=== PATIENT | female | born 1960 | race Caucasian/White ===

== ENCOUNTER 2020-04-25 08:52 | Outpatient (CLI) | payer BC, SELFPAY ==
[2020-04-25 09:07] LABS: Basophils Absolute Auto 0.07 K/mm3 (0.00-0.10); Basophils Percent Auto 0.6 % (0.0-1.0); Eosinophils Absolute Auto 0.47 K/mm3 (0.02-0.50); Eosinophils Percent Auto 4.1 % (1.0-6.0); Hematocrit 39.9 % (35.0-49.0); Hemoglobin 13.2 g/dL (12.0-15.0); Immature Granulocyte Absolute 0.03 K/mm3 (0.00-0.00); Immature Granulocyte Percent A 0.3 % (0.0-0.0); Lymphocytes Absolute Auto 4.11 K/mm3 (1.10-4.50); Lymphocytes Percent Auto 35.9 % (18.0-42.0); Mean Corpuscular HGB Conc 33.1 g/dL (32.0-36.0); Mean Corpuscular Hemoglobin 32.2 pg (27.0-31.0); Mean Corpuscular Volume 97.3 fL (78.0-102.0); Mean Platelet Volume 9.3 fl (9.2-11.8); Monocytes Absolute Auto 0.77 K/mm3 (0.10-0.90); Monocytes Percent Auto 6.7 % (2.0-11.0); Neutrophils Percent Auto 52.4 % (50.0-70.0); Platelet Count Result 252 K/mm3 (150-420); Red Cell Distribution Width 12.8 % (11.6-14.4); White Blood Count 11.4 K/mm3 (4.8-10.8)
[2020-04-25 10:28] LABS: Alanine Aminotransferase 21 U/L (14-59); Albumin Level 3.8 g/dL (3.4-5.0); Alkaline Phosphatase 78 U/L (46-116); Anion Gap 12.6 mmol/L (7-16); Aspartate Amino Transferase 18 U/L (15-37); Bilirubin,Total 0.4 mg/dL (0.00-1.00); Blood Urea Nitrogen 22 mg/dL (7-18); Calcium 10.2 mg/dL (8.5-10.1); Carbon Dioxide 26 mmol/L (21-32); Chloride 109 mmol/L (98-108); Estimated Glomerular Filt Rate 48; Glucose 96 mg/dL (70-99); Osmolality Calculated 299 mOsm/kg (285-295); Potassium 4.6 mmol/L (3.5-5.1); Sodium 143 mmol/L (136-145); Thyroid Stimulating Hormone 4.02 uIU/mL (0.36-3.74); Total Protein 6.9 g/dL (6.4-8.2); Vitamin B12 656 pg/mL (193-986)
[2020-04-29 20:08] LABS: Vitamin D 25 Hydroxy 33 ng/mL (30-100)
== END 2020-04-25 08:53 | disposition home or self-care (01) ==
PROVIDERS: PCP Nurse Practitioner Family; Visit Provider Nurse Practitioner Family
DX: R53.83 Other fatigue (principal); G62.9 Polyneuropathy, unspecified
CPT/HCPCS: 36415; 80053; 82306; 82607; 84443; 85025

== ENCOUNTER 2020-05-02 11:48 | Outpatient (CLI) | payer BC, SELFPAY ==
[2020-05-06 13:02] LABS: Parathyroid Intact 55 pg/mL (14-64)
== END 2020-05-02 11:49 | disposition home or self-care (01) ==
LOC: CHSLAB 11:50
PROVIDERS: PCP Nurse Practitioner Family; Visit Provider Nurse Practitioner Family
DX: E83.52 Hypercalcemia (principal)
CPT/HCPCS: 36415; 83970

== ENCOUNTER 2020-06-11 17:34 | Outpatient (CLI) | payer BC, SELFPAY ==
[2020-06-11 19:21] LABS: Thyroid Stimulating Hormone 2.86 uIU/mL (0.36-3.74)
== END 2020-06-11 17:35 | disposition home or self-care (01) ==
LOC: CHSLAB 17:35
PROVIDERS: PCP Nurse Practitioner Family; Visit Provider Nurse Practitioner Family
DX: M79.89 Other specified soft tissue disorders (principal)
CPT/HCPCS: 36415; 84443

== ENCOUNTER 2021-05-29 13:53 | Outpatient (CLI) | payer OTHER, SELFPAY ==
[2021-05-29 14:46] LABS: Thyroid Stimulating Hormone 1.53 uIU/mL (0.36-3.74)
== END 2021-05-29 13:54 | disposition home or self-care (01) ==
LOC: CHSLAB 13:58
PROVIDERS: PCP Nurse Practitioner Family; Visit Provider Nurse Practitioner Family
DX: R79.89 Other specified abnormal findings of blood chemistry (principal); R94.6 Abnormal results of thyroid function studies
CPT/HCPCS: 36415; 84443

== ENCOUNTER 2021-09-28 15:31 | Outpatient (CLI) | payer OTHER, SELFPAY ==
--- NOTE | ~2021-09-28 | CT_ITS ---
EXAMINATION: CT abdomen pelvis wo con DATE: 09/28/2021 15:48 INDICATION: Left flank pain. Hematuria. TECHNIQUE: Computed tomography (CT) of the abdomen and pelvis was performed without intravenous contr ast. Automated exposure control and iterative reconstruction technique were employed. The dose-length product was 187.80 mGy-cm. COMPARISON: None. FINDINGS: The visualized portions of the lung bases demonstrate minimal atelectasis. No pleural effus ion. The heart size is normal. There are coronary artery calcifications. No pericardial effusion. The re is a small sliding hiatal hernia. The liver and spleen are normal. There are changes of cholecyste ctomy. The pancreas, adrenal glands, and right kidney are normal. There is a 5 mm stone in left kidne y. There is diverticulosis of the colon without evidence of diverticulitis. There are no dilated loop s of bowel. The appendix is normal. There are no pathologically enlarged lymph nodes. There is no ana e intraperitoneal fluid. There is a chronic burst fracture of L1. There is mild lumbar spondylosis. IMPRESSION: 1. 5 mm nonobstructing left kidney stone. 2. Small sliding hiatal hernia. Reviewed, dictated and finalized at location A. RETE CRUSHER LOADER OPERATOR
== END 2021-09-28 15:32 | disposition home or self-care (01) ==
LOC: CHSIMG 15:34
PROVIDERS: PCP Nurse Practitioner Family; Visit Provider Nurse Practitioner Family
DX: R31.9 Hematuria, unspecified (principal)
CPT/HCPCS: 74176

== ENCOUNTER 2021-10-13 10:10 | Observation (INO) | payer OTHER, SELFPAY ==
--- NOTE | ~2021-10-13 | US_ITS ---
EXAMINATION: US renal BI DATE: 10/13/2021 12:25 INDICATION: Abdominal pain and hematuria. TECHNIQUE: Multiple ultrasound grayscale images of the kidneys were obtained. COMPARISON: CT dated 09/28/2021 FINDINGS: The right kidney measures 9.4 x 3.9 x 4.7 cm. The left kidney measures 9.2 x 4.7 x 5.0 cm. The kidney s demonstrate normal echogenicity. 2.2 cm anechoic cyst at the medial left kidney. There is no hydron ephrosis in either kidney. 6 mm echogenic and shadowing stone at the lower pole of the left kidney. The bladder is normal. IMPRESSION: 1. 6 mm nonobstructing stone at the lower pole of the left kidney. No hydronephrosis. Reviewed, dictated and finalized at location A. DCAST SYSTEMS ENGINEER IMPRESSION: 1. 6 mm nonobstructing stone at the lower pole of the left kidney. No hydronep hrosis.
--- NOTE | ~2021-10-13 | CT_ITS ---
EXAMINATION: CT abdomen pelvis w con DATE: 10/13/2021 15:24 INDICATION: Left flank pain. Suprapubic pain. TECHNIQUE: Computed tomography (CT) of the abdomen and pelvis was performed with 100 mL Omnipaque 350 intravenous contrast. Automated exposure control and iterative reconstruction technique were employe d. The dose-length product was 509.61 mGy-cm. COMPARISON: CT abdomen and pelvis 09/28/2021 FINDINGS: The visualized portions of the lung bases demonstrate mild atelectasis. No pleural effusion . The heart size is normal. No pericardial effusion. There is a moderate-sized sliding hiatal hernia. The liver is normal. There are changes of cholecystectomy. The pancreas, spleen, adrenal glands, and right kidney are normal. There is a 6 mm cyst in left kidney. There is a 5 mm stone in left kidney. There is liquid stool in the colon suggestive of diarrhea. There is diverticulosis of the colon witho ut evidence of diverticulitis. The appendix is normal. There are no pathologically enlarged lymph nod es. There is no free intraperitoneal fluid. Pelvic floor relaxation is noted. There is a chronic comp ression fracture of L1. IMPRESSION: 1. Moderate-sized sliding hiatal hernia. 2. 5 mm nonobstructing left kidney stone. 3. Pelvic floor relaxation. Reviewed, dictated and finalized at location A. OPERATIONS SUPERVISOR
--- NOTE | ~2021-10-13 | CT_ITS ---
EXAMINATION: CT thoracic lumbar wo con DATE: 10/14/2021 08:30 INDICATION: Spine injury. TECHNIQUE: Computed tomography (CT) of the thoracic and lumbar spine was performed without intravenou s contrast. Automated exposure control and iterative reconstruction technique were employed. The dose -length product was 613.35 mGy-cm. COMPARISON: CT abdomen and pelvis 10/13/2021, 09/28/2021, lumbar spine MRI 11/28/2013 FINDINGS: CT THORACIC SPINE: There is a moderate-sized sliding hiatal hernia. There is 10 degrees levoscoliosis of upper thoracic spine. There is a chronic compression fracture of T4 with 3/5 loss of height centr ally. There are chronic compression fractures of T5 and T6 with 1/5 loss of height. There is severely decreased disc height at T4-T5 and moderately decreased disc height from T5-T6 through T7-T8. There is mildly decreased disc height at multiple levels. There is multilevel facet joint osteoarthritis, m ild at most levels. On the right, there is severe facet joint osteoarthritis at T3-T4 and T4-T5. On t he right, there is mild neural foraminal stenosis from T2-T3 through T4-T5. On the left, there is mil d neural foraminal stenosis at T2-T3, T5-T6, and T9-T10. There is mild central canal stenosis at T12- L1. CT LUMBAR SPINE: There is 4 degrees levocurvature of lumbar spine. There is a chronic burst fracture of L1 with 3/5 loss of height centrally and retropulsion of bone 2 mm into central spinal canal. Ther e is mildly decreased disc height at L1-L2. The following disc levels are specifically discussed: L1-L2: There is a central protrusion. There is mild bilateral facet joint osteoarthritis. There is no neural foraminal stenosis. There is mild central canal stenosis. L2-L3: The disc does not extend beyond the endplate margin. There is mild bilateral facet joint osteo arthritis. There is no neural foraminal stenosis. There is no central canal stenosis. L3-L4: The disc is mildly bulging. There is moderate bilateral facet joint osteoarthritis. There is m ild bilateral neural foraminal stenosis. There is no central canal stenosis. L4-L5: The disc is mildly bulging. There is severe right and mild left facet joint osteoarthritis. Th ere is mild bilateral neural foraminal stenosis. There is no central canal stenosis. L5-S1: The disc does not extend beyond the endplate margin. There is severe right and moderate left f acet joint osteoarthritis. There is no neural foraminal stenosis. There is no central canal stenosis. IMPRESSION: 1. No acute fracture. 2. Mild thoracic and lumbar spondylosis. Reviewed, dictated and finalized at location A. DEVELOPMENT MANAGER
[2021-10-13 10:15] VITALS: BP 113/58; PULSE 56; RESP 14; TEMP 37.1; O2SAT 100
--- NOTE | 2021-10-13 11:08 | ED.ABDPAIN ---
HPI - Abdominal Pain General Chief Complaint: Urogenital-Female Stated Complaint: kidney stones Time Seen by Provider: 10/13/21 11:27 Source: patient Mode of arrival: ambulatory Limitations: no limitations History of Present Illness HPI narrative: 60-year-old woman comes in today complaining of left-sided abdominal pain/flank, suprapubic pain and some pain on the right side of her abdomen. Patient states that her symptoms began over 2 weeks ago. She saw her primary care doctor who did a CT scan for she had gross hematuria. She was told that she had a kidney stone and sent home on tamsulosin. UA was negative for hematuria. Patient had been taking penicillin for a month prior to that visit for a dental abscess. Her pain persists and is getting worse over the last few days. She states that she frequently has nausea and diarrhea but has had no vomiting, chest pain, shortness of breath, hematuria, dysuria, black or bloody stools. MD elicited complaint: abdominal pain and flank pain Pertinent past history: kidney stones (?) Onset (ago): week(s) (2) Pain Consistency: constant Location: L flank and suprapubic Severity: severe Radiation: none Migration to: no migration Exacerbating factors: eating and movement Relieving factors: nothing Context: confirms recent antibiotic use Associated symptoms: nausea, diarrhea and hematuria Related Data Home Medications Medication Instructions Recorded Confirmed diazepam 5 mg tablet 5 mg PO .tid prn PRN tablet 03/21/20 10/13/21 topiramate 200 mg tablet 100 mg PO BID PRN tablet 03/21/20 10/13/21 gabapentin 100 mg capsule 100 mg PO BID cap 09/28/21 10/13/21 propranolol 80 mg capsule,24 80 mg PO DAILY 09/28/21 hr,extended release levothyroxine 25 mcg PO DAILY 10/13/21 10/13/21 Allergies Allergy/AdvReac Type Severity Reaction Status Date / Time latex Allergy Mild RASH Verified 09/28/21 11:53 Review of Systems Review of Systems: All systems reviewed & are unremarkable except as noted in HPI and below Constitutional: Constitutional: Denies chills and Denies fever(s) Eyes: Eyes: Denies change in vision and Denies photophobia ENT: Denies nasal congestion and Denies sore throat Cardiovascular: Cardiovascular: Denies chest pain and Denies radiating jaw, neck or arm pain Respiratory: Respiratory: Reports cough, Denies dyspnea and Denies wheezing Gastrointestinal: Gastrointestinal: Reports abdominal pain, Denies bloating, Denies constipation, Reports diarrhea, Reports nausea and Denies vomiting Genitourinary: Genitourinary: Reports hematuria, Denies nocturia, Denies dysuria and Reports flank pain Musculoskeletal: Musculoskeletal: Reports back pain, Denies arthralgias and Denies joint swelling Integumentary/Breasts: Skin/Breast: Denies pruritus, Denies erythema and Denies rash Neurologic: Denies vertigo, Reports dizziness, Denies syncope, Denies headache(s), Denies focal weakness, Denies numbness and Reports weakness Allergic/Immunologic: Allergic/Immunologic: Denies lip swelling and Denies throat swelling PMFSH Past Medical History Medical History (Updated 10/13/21 @ 16:46 by Jose Castillo MD) Closed L2 vertebral fracture Fracture, patella 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
[2021-10-13 11:18] LABS: Add Urine Microscopic? NO; Appearance Urine Clear (Clear); Bilirubin Urine Negative (Negative); Blood Urine Negative (Negative); Color Urine Light Yellow (Yellow); Glucose Urine UA Negative (Negative); Ketones Urine Negative (Negative); Leukocyte Esterase Ur Negative (Negative); Nitrate Urine Negative (Negative); Protein Urine Negative (Negative); Specific Grav Ur 1.025 (1.010-1.020); Urobilinogen Urine 0.2 mg/dL (0.2-1.0); pH Urine 6.5 (5.0-8.0)
[2021-10-13 12:07] LABS: Basophils Absolute Auto 0.07 K/mm3 (0.00-0.10); Basophils Percent Auto 0.7 % (0.0-1.0); Eosinophils Absolute Auto 0.34 K/mm3 (0.02-0.50); Eosinophils Percent Auto 3.5 % (1.0-6.0); Hematocrit 41.7 % (35.0-49.0); Hemoglobin 13.2 g/dL (12.0-15.0); Immature Granulocyte Absolute 0.02 K/mm3 (0.00-0.00); Immature Granulocyte Percent A 0.2 % (0.0-0.0); Lymphocytes Absolute Auto 4.06 K/mm3 (1.10-4.50); Lymphocytes Percent Auto 42.4 % (18.0-42.0); Mean Corpuscular HGB Conc 31.7 g/dL (32.0-36.0); Mean Corpuscular Hemoglobin 31.9 pg (27.0-31.0); Mean Corpuscular Volume 100.7 fL (78.0-102.0); Mean Platelet Volume 9.8 fl (9.2-11.8); Monocytes Absolute Auto 0.61 K/mm3 (0.10-0.90); Monocytes Percent Auto 6.4 % (2.0-11.0); Neutrophils Absolute Auto 4.5 K/mm3 (1.7-7.2); Neutrophils Percent Auto 46.8 % (50.0-70.0); Platelet Count Result 254 K/mm3 (150-420); Red Blood Count 4.14 M/mm3 (4.20-5.40); Red Cell Distribution Width 12.3 % (11.6-14.4); White Blood Count 9.6 K/mm3 (4.8-10.8)
[2021-10-13 12:27] LABS: Alanine Aminotransferase 21 U/L (14-59); Albumin Level 3.5 g/dL (3.4-5.0); Alkaline Phosphatase 90 U/L (46-116); Anion Gap 11 mmol/L (8-16); Aspartate Amino Transferase < 10 U/L (15-37); Bilirubin,Total 0.3 mg/dL (0.00-1.00); Blood Urea Nitrogen 19 mg/dL (7-18); Calcium 9.9 mg/dL (8.5-10.1); Carbon Dioxide 22 mmol/L (21-32); Chloride 111 mmol/L (98-108); Estimated CRCL calculation 43 ml/min; Estimated Glomerular Filt Rate 51; Glucose 92 mg/dL (70-99); Lactic Acid Reflex 1.4 mmol/L (0.4-2.0); Lipase 63 U/L (73-393); Osmolality Calculated 300 mOsm/kg (285-295); Sodium 144 mmol/L (136-145); Total Protein 6.8 g/dL (6.4-8.2)
[2021-10-13] MEDS: SODIUM CHLORIDE 0.9% IV 1,000 ML 999 ML IV CONT ×2 (13:05→14:06)
[2021-10-13] MEDS: ONDANSETRON INJ 4 MG/2 ML VIAL IV PUSH (13:05)
[2021-10-13] MEDS: HYDROmorphone HCL INJ (*CRX) 2 MG/ML VIAL 0.5 MG IV PUSH (13:05)
--- NOTE | 2021-10-13 13:28 | ECG_ITS ---
Measurements Intervals [place] Rate: 52 P: 80 WV: 179 QRS: -15 QRSD: 124 T: 67 QT: 473 QTc: 444 Interpretive Statements SINUS BRADYCARDIA RSR' IN V1 OR V2, CONSIDER RIGHT VENTRICULAR HYPERTROPHY OR RIGHT VCD DELAYED PRECORDIAL R/S TRANSITION BORDERLINE ECG Electronically Signed On 10-13-2021 13:50:56 TOP SPOTTER by Roberto Carlos Jaime D.O.
[2021-10-13 13:35] VITALS: PULSE 50; RESP 20; O2SAT 89
[2021-10-13 14:04] VITALS: BP 99/59; PULSE 50; RESP 20; TEMP 36.9; O2SAT 96
[2021-10-13 16:23] LABS: SARS-CoV-2 RNA PCR Negative (Negative)
[2021-10-13 16:35] VITALS: PULSE 52; RESP 16; O2SAT 98
[2021-10-13 16:42] VITALS: BP 110/60; PULSE 51; RESP 20; TEMP 36.6; O2SAT 98
[2021-10-13] MEDS: SODIUM CHLORIDE 0.9% IV 1,000 ML 200 ML IV CONT ×2 (18:23→23:18)
[2021-10-13 20:00] VITALS: BP 112/54; PULSE 62; RESP 16; TEMP 36.4; O2SAT 98
[2021-10-13] MEDS: GABAPENTIN 100 MG CAPSULE PO (20:21)
--- NOTE | 2021-10-13 22:40 | ADMGEN ---
This patient, Tamra Armijo, was admitted to 2nd Floor Room 208-1. Patient/family oriented to hospital policies and general routines including ID bracelet, bed and alarms, visiting hours, pain management, procedures, bathroom and other care routines, personal items, smoking policy, room service/diet, and visiting hours. Information on how to activate the Rapid Response Team has been discussed. Patient/Family are encouraged to report perceived risks to care and to ask questions if they do not understand what they are told or what they should do.
[2021-10-14] VITALS: BP 100/60; PULSE 58; RESP 20; TEMP 36.1; O2SAT 98
[2021-10-14 04:00] VITALS: BP 91/50; PULSE 68; RESP 20; TEMP 36.1; O2SAT 95
[2021-10-14] MEDS: SODIUM CHLORIDE 0.9% IV 1,000 ML 200 ML IV CONT (05:00)
[2021-10-14 05:36] LABS: Basophils Absolute Auto 0.05 K/mm3 (0.00-0.10); Basophils Percent Auto 0.5 % (0.0-1.0); Eosinophils Absolute Auto 0.28 K/mm3 (0.02-0.50); Eosinophils Percent Auto 2.8 % (1.0-6.0); Hematocrit 34.4 % (35.0-49.0); Hemoglobin 11.6 g/dL (12.0-15.0); Immature Granulocyte Absolute 0.02 K/mm3 (0.00-0.00); Immature Granulocyte Percent A 0.2 % (0.0-0.0); Lymphocytes Absolute Auto 4.63 K/mm3 (1.10-4.50); Lymphocytes Percent Auto 46.9 % (18.0-42.0); Mean Corpuscular HGB Conc 33.7 g/dL (32.0-36.0); Mean Corpuscular Volume 94.8 fL (78.0-102.0); Monocytes Absolute Auto 0.64 K/mm3 (0.10-0.90); Monocytes Percent Auto 6.5 % (2.0-11.0); Neutrophils Absolute Auto 4.3 K/mm3 (1.7-7.2); Neutrophils Percent Auto 43.1 % (50.0-70.0); Platelet Count Result 218 K/mm3 (150-420); Red Blood Count 3.63 M/mm3 (4.20-5.40); Red Cell Distribution Width 12.2 % (11.6-14.4); White Blood Count 9.9 K/mm3 (4.8-10.8)
[2021-10-14 05:51] LABS: Alanine Aminotransferase 17 U/L (14-59); Albumin Level 2.6 g/dL (3.4-5.0); Alkaline Phosphatase 71 U/L (46-116); Anion Gap 11 mmol/L (8-16); Aspartate Amino Transferase < 10 U/L (15-37); Bilirubin,Total 0.3 mg/dL (0.00-1.00); Blood Urea Nitrogen 11 mg/dL (7-18); Calcium 8.5 mg/dL (8.5-10.1); Carbon Dioxide 18 mmol/L (21-32); Chloride 116 mmol/L (98-108); Estimated CRCL calculation 50 ml/min; Estimated Glomerular Filt Rate > 60; Glucose 88 mg/dL (70-99); Osmolality Calculated 298 mOsm/kg (285-295); Potassium 3.9 mmol/L (3.5-5.1); Sodium 145 mmol/L (136-145); Total Protein 5.3 g/dL (6.4-8.2)
[2021-10-14] MEDS: LEVOTHYROXINE SODIUM 25 MCG TABLET PO (06:07)
[2021-10-14 07:38] LABS: Occult Blood Negative (Negative)
[2021-10-14 08:00] VITALS: BP 107/60; PULSE 52; RESP 14; TEMP 36.3; O2SAT 97
--- NOTE | 2021-10-14 09:18 | PM.SD2 ---
Same Day Admit/Disch: HPI History of Present Illness Chief complaint: ABD PAIN HYPOXIA HYPOTENSION Narrative: Tamra Armijo is a 60 year old female presented to the ED with complaints of abdominal and flank pain. Patient has a past medical history of L2 vertebral fracture, Pollard Rehman syndrome, neuropathy, tick bite, and vocal cord paralysis. Patient notes that she has been having pain for a couple of months as she contributed to a 5 mm stone in her left kidney. Patient's primary care physician is aware of her kidney stone and prescribed Flomax. Patient notes that the pain has debilitated her. Vital signs 97.4, 54, 14, 97%, 110/60, WBCs 9.6, hemoglobin 13.2, hematocrit 41.7, platelets 254, sodium 144, potassium 4.0, BUN 14, creatinine 1.09, lactic acid 1.4, AST less than 10 ALT 21 troponin 6.0 UA unremarkable occult blood negative Covid test negative ova and parasite pending. The patient denies SOB, CP, palpitation, hematuria, dysuria, bloody stools extremity numbness, lightheadedness, dizziness, constipation, diarrhea, chills, or fever. Patient notes that she does have pain to her right upper quadrant in right lower back she notes that the Dilaudid relieves her pain she will discharge home with a limited amount of [place]. And instructed to follow-up with her primary care physician Spoke with patient's primary care physician nurse Marifer ISLAS to update her on patient's visit condition. Also notify her that she may possibly need referral to GI or urology. 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lized by the patient): Female Spiritual care concerns: No Same Day Admit/Disch: Med Pre-admit Medications Home Medications Medication Instructions Recorded Confirmed Type diazepam 5 mg tablet 5 mg PO .tid prn PRN tablet 03/21/20 10/13/21 History topiramate 200 mg tablet 100 mg PO BID PRN tablet 03/21/20 10/13/21 History cholecalciferol (vitamin D3) 50 See Rx Instructions .ROUTE 09/09/21 10/13/21 Rx mcg (2,000 unit) capsule .COMPLEX #90 cap gabapentin 100 mg capsule 100 mg PO BID cap 09/28/21 10/13/21 History propranolol 80 mg capsule,24 80 mg PO DAILY 09/28/21 History hr,extended release tamsulosin 0.4 mg capsule 0.4 mg PO QHS #30 cap 09/28/21 10/13/21 Rx levothyroxine 25 mcg PO DAILY 10/13/21 10/13/21 History hydrocodone-acetaminophen 1 tablet PO Q6H PRN #15 tablet 10/14/21 Rx ondansetron HCl [Zofran] 4 mg PO Q6H PRN #30 tablet 10/14/21 Rx Exam Narrative: GENERAL: This is a well-nourished, well-developed patient, in no apparent distress. HEAD: normocephalic, atraumatic. EYES: PERRL. Sclera clear/white. Vision is grossly intact. EARS: External ears normal, auditory canals clear and without drainage, TMs normal without perforation. Hearing grossly intact. NOSE: External nose normal with no obvious nasal discharge, nares without redness, no rhinorrhea. THROAT: Mucous membranes moist, posterior pharynx clear. NECK: Neck supple, non-tender without lymphadenopathy, masses or thyromegaly. CARDI
[2021-10-14] MEDS: CHOLECALCIFEROL 1,000 UNITS TABLET 2000 UNITS BY MOUTH (09:36)
[2021-10-14] MEDS: GABAPENTIN 100 MG CAPSULE PO (09:36)
[2021-10-14 11:40] VITALS: BP 110/60; PULSE 54; RESP 14; TEMP 36.3; O2SAT 97
[2021-10-14] MEDS: ACETAMINOPHEN 500 MG TABLET 1000 MG PO (14:04)
--- NOTE | 2021-10-14 14:13 | PC.NURSE ---
Pt given discharge instruction. Medications reviewed and follow up appointment with Jossie on 10/21/21 @ 1030 reviewed. Pt verbalized understanding of discharge instructions.
--- NOTE | 2021-10-14 16:01 | PC.NURSE ---
Telemetry removed. assisted patient with dressing. Patient taken to car via wheelchair. Denies pain, SOB, abd discomfort.
--- NOTE | 2021-10-15 11:26 | PC.NURSE ---
Pt states she received and understood her discharge instructions. Pt has no other comments.
== END 2021-10-14 15:50 | disposition home or self-care (01) ==
LOC: CHSED 16:43 → CHS2ND 16:44
PROVIDERS: Admitting Provider Emergency Medicine; Emergency Provider Emergency Medicine; PCP Nurse Practitioner Family; Visit Provider Emergency Medicine
DX: R10.32 Left lower quadrant pain (principal); N20.0 Calculus of kidney; I95.9 Hypotension, unspecified; G61.0 Guillain-Barre syndrome; G62.9 Polyneuropathy, unspecified; S30.0XXA Contusion of lower back and pelvis, initial encounter; Z90.49 Acquired absence of other specified parts of digestive tract; Z20.822 Contact with and (suspected) exposure to COVID-19
CPT/HCPCS: 36415; 72128; 72131; 74177; 76775; 80053; 81003; 82272; 83605; 83690; 84484; 85025; 87040; 87045; 87177; 87209; 87324; 87427; 93005; 96360; 96361; 96374; 96375; 99285; A9270; C9803; G0378; J1170; J2405; J7030; Q9967; U0003; U0005

== ENCOUNTER 2022-07-06 10:52 | Outpatient (CLI) | payer OTHER, SELFPAY ==
[2022-07-06 12:15] LABS: Thyroid Stimulating Hormone Reflex 2.64 u/IU/mL (0.36-3.74)
== END 2022-07-06 10:53 | disposition home or self-care (01) ==
LOC: CHSLAB 10:54
PROVIDERS: PCP Nurse Practitioner Family; Visit Provider Nurse Practitioner Family
DX: R79.89 Other specified abnormal findings of blood chemistry (principal)
CPT/HCPCS: 36415; 84443

== ENCOUNTER 2022-10-08 10:38 | Outpatient (CLI) | payer OTHER, SELFPAY ==
--- NOTE | ~2022-10-08 | XR_ITS ---
EXAMINATION: XR chest 2V 10/08/2022 11:08 INDICATION: Cough and congestion. Shortness of breath. PROCEDURE: 2 view chest COMPARISON: 12/02/2014 FINDINGS: The lungs are clear. The cardiomediastinal silhouette is within normal limits. There are no pleural effusions. There is no pneumothorax suspected. IMPRESSION: 1: NO ACUTE CARDIOPULMONARY DISEASE. Reviewed, dictated and finalized at location A. AL ARTS THERAPY TEACHER
[2022-10-08 11:16] LABS: Basophils Absolute Auto 0.07 K/mm3 (0.00-0.10); Basophils Percent Auto 0.6 % (0.0-1.0); Eosinophils Percent Auto 1.8 % (1.0-6.0); Hematocrit 43.8 % (35.0-49.0); Hemoglobin 14.4 g/dL (12.0-15.0); Immature Granulocyte Absolute 0.05 K/mm3 (0.00-0.00); Immature Granulocyte Percent A 0.4 % (0.0-0.0); Lymphocytes Absolute Auto 4.32 K/mm3 (1.10-4.50); Lymphocytes Percent Auto 37.9 % (18.0-42.0); Mean Corpuscular HGB Conc 32.9 g/dL (32.0-36.0); Mean Corpuscular Volume 94.4 fL (78.0-102.0); Mean Platelet Volume 9.1 fl (9.2-11.8); Monocytes Absolute Auto 0.86 K/mm3 (0.10-0.90); Monocytes Percent Auto 7.5 % (2.0-11.0); Neutrophils Absolute Auto 5.9 K/mm3 (1.7-7.2); Neutrophils Percent Auto 51.8 % (50.0-70.0); Platelet Count Result 426 K/mm3 (150-420); Red Blood Count 4.64 M/mm3 (4.20-5.40); Red Cell Distribution Width 12.4 % (11.6-14.4); White Blood Count 11.4 K/mm3 (4.8-10.8)
[2022-10-08 11:54] LABS: Alanine Aminotransferase 24 U/L (14-59); Albumin Level 3.8 g/dL (3.4-5.0); Alkaline Phosphatase 99 U/L (46-116); Anion Gap 6 mmol/L (8-16); Aspartate Amino Transferase 16 U/L (15-37); Bilirubin,Total 0.5 mg/dL (0.00-1.00); Blood Urea Nitrogen 14 mg/dL (7-18); Calcium 10.3 mg/dL (8.5-10.1); Carbon Dioxide 31 mmol/L (21-32); Chloride 108 mmol/L (98-108); Estimated Glomerular Filt Rate 47; Glucose 107 mg/dL (70-99); Osmolality Calculated 300 mOsm/kg (285-295); Potassium 4.8 mmol/L (3.5-5.1); Sodium 145 mmol/L (136-145); Total Protein 7.1 g/dL (6.4-8.2)
== END 2022-10-08 10:39 | disposition home or self-care (01) ==
LOC: CHSLAB 10:40
PROVIDERS: PCP Family Medicine; Visit Provider Nurse Practitioner Family
DX: R09.89 Other specified symptoms and signs involving the circulatory and respiratory systems (principal); R06.02 Shortness of breath; R05.9 Cough, unspecified; J06.9 Acute upper respiratory infection, unspecified
CPT/HCPCS: 36415; 71046; 80053; 85025

== ENCOUNTER 2023-10-04 11:21 | Emergency (ER) | payer BC, SELFPAY ==
--- NOTE | ~2023-10-04 | CT_ITS ---
EXAMINATION: CT BRAIN W/O DATE: 10/04/2023 12:19 INDICATION: Accidental fall. Left hematoma. TECHNIQUE: Computed tomography (CT) of the head was performed without intravenous contrast. The dose- length product was 681.00 mGy-cm. COMPARISON: No prior studies for comparison. FINDINGS: Normal brain parenchymal volume for age. Normal beyer-white differentiation. No acute intrac ranial hemorrhage, infarction, mass or mass effect. No ventriculomegaly or midline shift. Midline sagittal images demonstrate a normal corpus callosum, c raniovertebral junction and sella turcica. Basilar cisterns are patent. Paranasal sinuses and mastoids are pneumatized. No depressed skull fractures. IMPRESSION: 1. No acute intracranial abnormality. Reviewed, dictated and finalized at location L. FLAVOR ATTENDANT
--- NOTE | ~2023-10-04 | XR_ITS ---
XR tibia fibula RT 2V 10/04/2023 12:20 INDICATION: Right leg pain PROCEDURE: 2 views right tibia/fibula COMPARISON: Knee series dated 06/18/2016 FINDINGS: Fracture, dislocation or subluxation is not identified. The soft tissues appear within norm al limits. No foreign bodies are identified. IMPRESSION: 1: NO ACUTE BONE OR JOINT ABNORMALITY IDENTIFIED. Reviewed, dictated and finalized at location L. NOLOGIST
[2023-10-04 11:30] VITALS: BP 113/77; PULSE 77; RESP 20; TEMP 36.3; O2SAT 100
--- NOTE | 2023-10-04 11:33 | ED.LOWEXIN ---
HPI - Extremity Injury (Lower) General Chief Complaint: Extremity Injury, Lower Stated Complaint: fall; right leg pain Time Seen by Provider: 10/04/23 11:30 Source: patient Mode of arrival: ambulatory History of Present Illness HPI Narrative: 62-year-old female with a history of [place] syndrome, neuropathy, left patellar fracture, L2 vertebral fracture, hypothyroidism was walking down a ramp 2 nights ago when she slipped and fell. No loss of consciousness. The patient presents to the ER with -- right leg pain between knee and the ankle. No bruising noted. The patient is able to bear weight. -- Patient hit her head and sustained a hematoma over the left occipital region. No new neck or back pain. The patient has discoloration of the lower back for the past few months. MD complaint: leg injury and fall Onset (ago): day(s) ( Two days ago) Place: home Severity: mild Relieving factors: nothing Exacerbating factors: nothing Context: fall Other symptoms: none Related Data Home Medications Medication Instructions Recorded Confirmed gabapentin 100 mg capsule 100 mg PO BID 09/28/21 10/04/23 diazepam 5 mg tablet 5 mg PO QID muscle spasm 06/08/23 10/04/23 Allergies Allergy/AdvReac Type Severity Reaction Status Date / Time latex Allergy Mild RASH Verified 10/04/23 11:35 codeine Allergy Unknown Unknown Verified 10/04/23 11:35 Review of Systems Review of Systems: All systems reviewed & are unremarkable except as noted in HPI and below Constitutional: Constitutional: Reports as per HPI and Reports no additional constitutional complaints Eyes: Eyes: Reports as per HPI and Reports no additional eye complaints ENT: Reports system reviewed and no additional complaints, except as documented and Reports as per HPI Cardiovascular: Cardiovascular: Reports as per HPI and Reports no additional cardiovascular complaints Respiratory: Respiratory: Reports as per HPI and Reports no additional respiratory complaints Gastrointestinal: Gastrointestinal: Reports as per HPI and Reports no additional gastrointestinal complaints Genitourinary: Genitourinary: Reports no additional female genitourinary complaints and Reports as per HPI Musculoskeletal: Musculoskeletal: Reports no additional musculoskeletal complaints and Reports as per HPI Comments: chronic neck and back pain. Integumentary/Breasts: Skin/Breast: Reports system reviewed and no additional complaints, except as docu Comments: Extensive brown discoloration of the mid back Neurologic: Reports system reviewed and no additional complaints, except as documented and Reports as per HPI Comments: the patient has balance problems after she [place] Psychiatric: Psychiatric: Reports no additional psychiatric complaints and Reports as per HPI Endocrine: Endocrine: Reports no additional endocrine complaints and Reports as per HPI Hematologic/Lymphatic: Hematologic/Lymphatic: Reports no additional hematologic/lymphatic complaints and Reports as per HPI Allergic/Immunologic: Allergic/Immunologic: Reports no additional allergic/immunologic complaints and Reports as per HPI PMFSH Past Medical History Medical History Closed L2 vertebral fracture Fracture, patella 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
[2023-10-04 13:00] VITALS: BP 115/75; PULSE 79; RESP 18; TEMP 36.4; O2SAT 100
== END 2023-10-04 13:00 | disposition home or self-care (01) ==
PROVIDERS: Emergency Provider Internal Medicine Critical Care Medicine; PCP Family Medicine
DX: M79.604 Pain in right leg (principal); S09.90XA Unspecified injury of head, initial encounter; Z79.899 Other long term (current) drug therapy; W01.0XXA Fall on same level from slipping, tripping and stumbling without subsequent striking against object, initial encounter; Y92.009 Unspecified place in unspecified non-institutional (private) residence as the place of occurrence of the external cause
CPT/HCPCS: 70450; 73590; 99284

== ENCOUNTER 2023-10-12 10:35 | Outpatient (CLI) | payer BC, SELFPAY ==
--- NOTE | ~2023-10-12 | XR_ITS ---
Cervical Spine: AP, lateral, open-mouth views Clinical History: Pain Findings: The normal lordotic curve is maintained. No fracture identified. There is 2 mm retrolisthes is of C4 over C5, with mild degenerative disc narrowing at C4-C5. Remaining disc spaces are preserved . There is mild to moderate facet arthropathy cervical spine.. Pre-vertebral soft tissues are unremar kable. Impression: 2 mm retrolisthesis of C4 over C5. Mild degenerative change, as above. Reviewed, dictated and finalized at location M. CAL TECHNICIAN Impression: 2 mm retrolisthesis of C4 over C5. Mild degenerative change, as above.
--- NOTE | ~2023-10-12 | XR_ITS ---
Thoracic spine: Clinical Indication: Back pain AP and lateral views were performed. Mild compression fracture of L1 noted. No thoracic spine fracture seen. There is normal alignment of the vertebrae. The intervertebral disc spaces appear normal. Paravertebral soft tissues appear johny l. Impression: Mild L1 compression fracture, stable since 11/19/2013. Reviewed, dictated and finalized at location . ISION LAYOUT WORKER Impression: Mild L1 compression fracture, stable since 11/19/2013.
[2023-10-12 11:29] LABS: Basophils Absolute Auto 0.05 K/mm3 (0.00-0.10); Basophils Percent Auto 0.4 % (0.0-1.0); Eosinophils Absolute Auto 0.04 K/mm3 (0.02-0.50); Eosinophils Percent Auto 0.4 % (1.0-6.0); Hematocrit 44.6 % (35.0-49.0); Hemoglobin 14.3 g/dL (12.0-15.0); Immature Granulocyte Absolute 0.04 K/mm3 (0.00-0.00); Immature Granulocyte Percent A 0.4 % (0.0-0.0); Lymphocytes Absolute Auto 2.17 K/mm3 (1.10-4.50); Lymphocytes Percent Auto 19.3 % (18.0-42.0); Mean Corpuscular HGB Conc 32.1 g/dL (32.0-36.0); Mean Corpuscular Hemoglobin 30.4 pg (27.0-31.0); Mean Corpuscular Volume 94.9 fL (78.0-102.0); Monocytes Absolute Auto 1.02 K/mm3 (0.10-0.90); Monocytes Percent Auto 9.1 % (2.0-11.0); Neutrophils Absolute Auto 7.9 K/mm3 (1.7-7.2); Neutrophils Percent Auto 70.4 % (50.0-70.0); Platelet Count Result 268 K/mm3 (150-420); Red Cell Distribution Width 13.1 % (11.6-14.4); White Blood Count 11.2 K/mm3 (4.8-10.8)
[2023-10-12 11:56] LABS: Alanine Aminotransferase 21 U/L (14-59); Albumin Level 3.9 g/dL (3.4-5.0); Alkaline Phosphatase 118 U/L (46-116); Anion Gap 7 mmol/L (8-16); Aspartate Amino Transferase 15 U/L (15-37); Bilirubin,Total 0.7 mg/dL (0.00-1.00); Blood Urea Nitrogen 12 mg/dL (7-18); Calcium 9.7 mg/dL (8.5-10.1); Carbon Dioxide 28 mmol/L (21-32); Chloride 102 mmol/L (98-108); Estimated Glomerular Filt Rate 49; Glucose 120 mg/dL (70-99); Osmolality Calculated 284 mOsm/kg (285-295); Potassium 3.8 mmol/L (3.5-5.1); Sodium 137 mmol/L (136-145); Total Protein 7.1 g/dL (6.4-8.2)
[2023-10-12 12:02] LABS: Thyroid Stimulating Hormone Reflex 0.03 u/IU/mL (0.36-3.74)
[2023-10-12 12:23] LABS: Free T4 Free Thyroxine Reflex 0.82 ng/dL (0.76-1.46)
== END 2023-10-12 10:36 | disposition home or self-care (01) ==
LOC: CHSLAB 10:38
PROVIDERS: PCP Family Medicine; Visit Provider Family Medicine
DX: G89.29 Other chronic pain (principal); M54.9 Dorsalgia, unspecified; R79.89 Other specified abnormal findings of blood chemistry; E11.9 Type 2 diabetes mellitus without complications; G61.0 Guillain-Barre syndrome; M54.2 Cervicalgia; M43.12 Spondylolisthesis, cervical region; M48.56XA Collapsed vertebra, not elsewhere classified, lumbar region, initial encounter for fracture
CPT/HCPCS: 36415; 72040; 72072; 80053; 84439; 84443; 85025

== ENCOUNTER 2023-10-19 13:02 | Outpatient (RCR) | payer BC, SELFPAY ==
--- NOTE | 2023-10-19 13:53 | OPREHPOC ---
Outpatient Therapy Plan of Care This is a Multidisciplinary Plan of Care that may contain components documented by all disciplines (PT, OT, and ST.) PT Problem 1 PT Problem #1 Knowledge Deficit PT Goal 1 Goal 1. independent and compliant with HEP Target Visit 4 PT Problem 2 PT Problem #2 Impaired Strength PT Goal 1 Goal 1. improve bilateral knee strength to 4+/5 or better 2. improve bilateral hip flexion to 4/5 or better 3. improve core strength to 3+/5 or better Target Visit 8 PT Problem 3 PT Problem #3 Impaired Functional Mobil PT Goal 1 Goal 1. tinetti to improve to moderate fall risk or less fall risk. 2. patient to report no falls in the last 2 weeks or more. 3. patient to tolerate work 3 days a week or more to improve quality of life 4. ndi and oswestry to displays 40% or less functional deficits each Target Visit 8
--- NOTE | 2023-10-19 13:53 | PTOPEVAL1 ---
Assessment and note entered by JT File, PT Evaluation Information Assessment Status Evaluation Diagnosis cervicalgia, dorsalgia Onset 10/12/23 Subjective Information patient reports back in 1978 she had GBS. she reports then 2 years ago when she had covid her residual deficits from GBS began to become increased again. she reports she had 2 kidney surgeries last year. she reports the surgeries were to remove stones. she reports she is now very weak, has difficulty walking, and is off balance. she reports since covid she has had dizziness, pain, imbalance, functional deficits. 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 she reports she is unable to bend over and pick anything up. she reports she has a service dog to diamond picker things from the floor for her. she reports she has neck and back pain all the time. she reports her pain radiates up into her head causing headaches. she reports she often feels like she has to hold up her head. she reports she has lots of falls. Reported Pain Level Pain Score 7,8: Self Report Assessment PT Clinical Summary mrs. trimble is a 62 yo woman who presents to skilled swing bed PT for evaluation and treatment of neck and back pain. however, she presents with LE weakness and poor balance as well. she displays signs and symptoms of generalized weakness and unsteady gait. her neck and back pain are more acute on chronic at this time. she would benefit from continued skilled PT to address her balance, gait, safety, and strength deficits to improve her quality of life and functional activity performance. Plan of Care Interventions Gait Training,Neuro Re-education,Patient/Caregiver Educati,Therapeutic Activities,Therapeutic Exercise PT Services Indicated Yes Treatment Frequency and 2x weekly for 8 visits Duration These treatments will address the objective and functional deficits as defined above. The patient will be advanced safely and appropriately in order for the patient to progress towards his/her prior level of function. Additional exercises will be introduced and as well as a comprehensive home exercise program upon discharge, if needed, ?to ensure carryover of functional gains achieved in the clinic. This treatment plan has been reviewed and agreement upon by the patient.
--- NOTE | 2023-11-11 07:05 | PCPTNOTE ---
Patient cancelled session today and did not give reason.
--- NOTE | 2023-12-09 09:28 | OPREHPOC ---
Outpatient Therapy Plan of Care This is a Multidisciplinary Plan of Care that may contain components documented by all disciplines (PT, OT, and ST.) PT Problem 1 PT Problem #1 Knowledge Deficit PT Goal 1 Goal 1. independent and compliant with HEP Target Visit 4 Progress Met PT Problem 2 PT Problem #2 Impaired Strength PT Goal 1 Goal 1. improve bilateral knee strength to 4+/5 or better 2. improve bilateral hip flexion to 4/5 or better 3. improve core strength to 3+/5 or better Target Visit 14 PT Problem 3 PT Problem #3 Impaired Functional Mobil PT Goal 1 Goal 1. tinetti to improve to moderate fall risk or less fall risk. 2. patient to report no falls in the last 2 weeks or more. met 3. patient to tolerate work 3 days a week or more to improve quality of life. progressing 4. ndi and oswestry to displays 40% or less functional deficits each. not met Target Visit 14
--- NOTE | 2023-12-09 09:28 | PTOPREEVAL ---
Assessment and note entered by JT File, PT Evaluation Information Assessment Status Re-evaluation Diagnosis cervicalgia, dorsalgia Onset 10/12/23 Subjective Information patient reports she has been working the last couple of days. she reports this has flared up her neck and back pain. she reports she has been trying to be aware and correct any positions that give her poor posture at work. she reports she has been compliant with her HEP. she reports she has had no falls since beginning therapy. Reported Pain Level Pain Score 5,7: Self Report Assessment PT Clinical Summary mrs. trimble presents to skilled PT for her 8th skilled therapy visit. she is in increased pain today, but reports she has tried to return to work this past week which has increased her pain. she does display improvements in LE strength, cervical rom, and tinetti balance score. she has had no falls. however, she remains a high fall risk per the tinetti. she has made progress towards all goals for skilled PT. she continues to remain a candidate for skilled PT as she is making progress, and functionally is improving. she would benefit from continued exercise/activity progression to achieve her remaining skilled PT goals to return to prior level functional activities and quality of life. Plan of Care Interventions Gait Training,Neuro Re-education,Patient/Caregiver Educati,Therapeutic Activities,Therapeutic Exercise PT Services Indicated Yes Treatment Frequency and continue skilled PT 2x weekly for 6 more visits Duration These treatments will address the objective and functional deficits as defined above. The patient will be advanced safely and appropriately in order for the patient to progress towards his/her prior level of function. Additional exercises will be introduced and as well as a comprehensive home exercise program upon discharge, if needed, ?to ensure carryover of functional gains achieved in the clinic. This treatment plan has been reviewed and agreement upon by the patient.
--- NOTE | 2023-12-19 13:27 | OPREHPOC ---
Outpatient Therapy Plan of Care This is a Multidisciplinary Plan of Care that may contain components documented by all disciplines (PT, OT, and ST.) PT Problem 1 PT Problem #1 Knowledge Deficit PT Goal 1 Goal 1. independent and compliant with HEP Target Visit 4 Progress Met PT Problem 2 PT Problem #2 Impaired Strength PT Goal 1 Goal 1. improve bilateral knee strength to 4+/5 or better 2. improve bilateral hip flexion to 4/5 or better 3. improve core strength to 3+/5 or better Target Visit 18 PT Problem 3 PT Problem #3 Impaired Functional Mobil PT Goal 1 Goal 1. tinetti to improve to moderate fall risk or less fall risk. 2. patient to report no falls in the last 2 weeks or more. met 3. patient to tolerate work 3 days a week or more to improve quality of life. progressing 4. ndi and oswestry to displays 40% or less functional deficits each. not met Target Visit 18
--- NOTE | 2023-12-19 13:28 | PTOPREEVAL ---
Assessment and note entered by Alise Marroquin DPT Evaluation Information Assessment Status Re-evaluation Diagnosis cervicalgia, dorsalgia Onset 10/12/23 Subjective Information patient reports since start of PT her back is 20% better and her neck is 10% better. She reports that balance has improved and she is not falling. she reports improvement with getting up from a chair and her standing time to complete house hold tasks has improved. she reports ambulating prolonged periods continue to be difficult. she reports her neck pain continues to persist at work . she reports increased pain is less frequent. Assessment PT Clinical Summary Mrs. Armijo has been seen for 14 visits of skilled PT with good progression towards goals. Patient demonstrates improved balance, improved NDI and Back Index functional scoring, improved cervical ROM and improved LE strength. She reports no falls, improved ability standing up from a chair and improved ability to complete house hold tasks. She continues to report difficulty with ambulating prolonged distances at home and in the community and neck pain while she is working. She would benefit from continued skilled PT to address remaining impairments and return to OF. Plan of Care Interventions Gait Training,Neuro Re-education,Patient/Caregiver Educati,Therapeutic Activities,Therapeutic Exercise PT Services Indicated Yes Treatment Frequency and continue 1x weekly for 4 visits Duration These treatments will address the objective and functional deficits as defined above. The patient will be advanced safely and appropriately in order for the patient to progress towards his/her prior level of function. Additional exercises will be introduced and as well as a comprehensive home exercise program upon discharge, if needed, ?to ensure carryover of functional gains achieved in the clinic. This treatment plan has been reviewed and agreement upon by the patient.
== END 2024-01-11 09:05 | disposition still patient (30) ==
LOC: CHSPT 13:02
PROVIDERS: PCP Family Medicine; Visit Provider Family Medicine
DX: M54.9 Dorsalgia, unspecified (principal); M54.2 Cervicalgia; G89.29 Other chronic pain
CPT/HCPCS: 97110; 97112; 97140; 97150; 97162

== ENCOUNTER 2024-01-18 09:07 | Outpatient (RCR) | payer BC, SELFPAY ==
--- NOTE | 2024-01-18 10:08 | OPREHPOC ---
Outpatient Therapy Plan of Care This is a Multidisciplinary Plan of Care that may contain components documented by all disciplines (PT, OT, and ST.) PT Problem 1 PT Problem #1 Knowledge Deficit PT Goal 1 Goal 1. independent and compliant with HEP Target Visit 4 Progress Met PT Problem 2 PT Problem #2 Impaired Strength PT Goal 1 Goal 1. improve bilateral knee strength to 4+/5 or better 2. improve bilateral hip flexion to 4/5 or better 3. improve core strength to 3+/5 or better Target Visit 24 Progress Not Met Comment progressing Comment progressing PT Problem 3 PT Problem #3 Impaired Functional Mobil PT Goal 1 Goal 1. tinetti to improve to moderate fall risk or less fall risk. 2. patient to report no falls in the last 2 weeks or more. met 3. patient to tolerate work 3 days a week or more to improve quality of life. progressing 4. ndi and oswestry to displays 40% or less functional deficits each. not met Target Visit 24 Progress Partially Met
--- NOTE | 2024-01-18 10:09 | PTOPREEVAL ---
Assessment and note entered by JT File, PT Evaluation Information Assessment Status Re-evaluation Diagnosis cervicalgia, dorsalgia Onset 10/12/23 Subjective Information patient reports she continues to have pain and issues with the neck. she reports her neck has not changed much since starting therapy. however, she reports her back is a bit better. she reports work positions still increase her neck and back symptoms. she reports she continues to bounce off of sin from time to time, but reports feeling her balance is improved since starting therapy. she has not had any falls, but reports she has had a few bouts she has gotten close and found a counter to hold onto. Reported Pain Level Pain Score 2,7: Self Report Pain Score 7,8: Self Report Assessment PT Clinical Summary mrs. trimble presents to skilled PT with continued pain in the neck and lower back. her pain is worse in the L knee and results inher needing to flex the neck and hold/massage the neck with the L UE at all times. she continues to display weakness in the LE's and high fall risk per the tinetti and 5x sit to stand. she is unsafe during ambulation and often has to reach for objects to stabilize balance. she has made some progress towards functional goals, but still lacks achievement of all functional and strength goals. moving forward, patient would benefit from continued rehab with increased focus on balance, gait, and strength. we will hold off on exercise/ treatment of the neck outside of occasional modalities for pain as needed. suggest patient continue skilled PT for balance/gait/strength deficits, but refer back to MD for continued neck and back pain. Plan of Care Interventions Therapeutic Exercise,Patient/Caregiver Educati, Neuro Re-education,Therapeutic Activities,Gait Training PT Services Indicated Yes Treatment Frequency and continue skilled PT 2x weekly for 6 more visits Duration These treatments will address the objective and functional deficits as defined above. The patient will be advanced safely and appropriately in order for the patient to progress towards his/her prior level of function. Additional exercises will be introduced and as well as a comprehensive home exercise program upon discharge, if needed, ?to ensure carryover of functional gains achieved in the clinic. This treatment plan has been reviewed and agreement upon by the patient.
--- NOTE | 2024-02-10 16:56 | OPREHPOC ---
Outpatient Therapy Plan of Care This is a Multidisciplinary Plan of Care that may contain components documented by all disciplines (PT, OT, and ST.) PT Problem 1 PT Problem #1 Knowledge Deficit PT Goal 1 Goal 1. independent and compliant with HEP Target Visit 4 Progress Met PT Problem 2 PT Problem #2 Impaired Strength PT Goal 1 Goal 1. improve bilateral knee strength to 4+/5 or better, met 2. improve bilateral hip flexion to 4/5 or better 3. improve core strength to 3+/5 or better Target Visit 24 Progress Not Met Comment progressing PT Problem 3 PT Problem #3 Impaired Functional Mobil PT Goal 1 Goal 1. tinetti to improve to moderate fall risk or less fall risk. 2. patient to report no falls in the last 2 weeks or more. met 3. patient to tolerate work 3 days a week or more to improve quality of life. met 4. ndi and oswestry to displays 40% or less functional deficits each. not met Target Visit 24 Progress Partially Met
--- NOTE | 2024-02-10 16:57 | PTOPDC ---
Assessment and note entered by Alise Roberson DPT Evaluation Information Assessment Status Re-evaluation Diagnosis cervicalgia, dorsalgia Onset 10/12/23 Subjective Information patient denies falls. she reports in the last 3 weeks she had one really bad day at work where she felt her balance was very off. She reports her balance has improved but does not feel that she has improved to pre COVID levels. She reports she had a neck MRI earlier this week. She reports that getting dressed has improved and she is able to don jewelry but reports that she has modified her room for support. Reported Pain Level Pain Score 4,2: Self Report Assessment PT Clinical Summary Ms. Armijo was seen for 24 visits of skilled PT for neck and back pain and imbalance. Since last re-evaluation patient has made limited progress towards goals. She continues to present as a moderate fall risks with ataxic movements in standing. She reports continued low back and neck pain that will reach up to 10/10. She has follow up with pain management on 02/23 and will be discharged from PT services at this time. Plan of Care PT Services Indicated No
== END 2024-02-10 17:01 | disposition home or self-care (01) ==
LOC: CHSPT 09:07
PROVIDERS: PCP Family Medicine; Visit Provider Family Medicine
DX: M54.9 Dorsalgia, unspecified (principal); M54.2 Cervicalgia; G89.29 Other chronic pain
CPT/HCPCS: 97110; 97112; 97530

== ENCOUNTER 2024-02-08 12:04 | Outpatient (CLI) | payer BC, SELFPAY ==
--- NOTE | ~2024-02-08 | MR_ITS ---
MRI of the cervical spine Clinical History: Cervicalgia Technique: Axial T2-weighted and gradient images, and sagittal T1-weighted, T2-weighted, and STIR dejon ges were acquired. Findings: There is no fracture or subluxation of cervical spine. Vertebral bodies maintain normal hei ght and line. No suspicious bone marrow signal abnormality seen. At C2-C3, there is no disc bulge or herniation. No spinal canal stenosis, cord compression, or defini te neural foraminal narrowing. There is mild facet arthropathy. At C3-C4, there is minimal disc bulge. There is mild facet arthropathy. There is mild bilateral neura l foraminal narrowing. No central canal stenosis or cord compression. At C4-C5, there is moderate degenerative disc narrowing with minimal disc bulge. No canal stenosis or cord compression. There is probable left neural foraminal narrowing. There is mild facet arthropathy . At C5-C6, there is no disc bulge or herniation. No central canal stenosis or cord compression. There is mild bilateral neural foraminal narrowing with bilateral facet arthropathy. At C6-C7, there is no disc bulge or herniation. No spinal canal stenosis, cord compression, or defini te neural foraminal narrowing. No abnormal signal seen in the spinal cord. Paravertebral soft tissues are unremarkable. Impression: Mild degenerative spondylosis, as above. Reviewed, dictated and finalized at [facility]. Impression: Mild degenerative spondylosis, as above.
== END 2024-02-08 12:05 ==
LOC: MICIMG 12:05
PROVIDERS: PCP Family Medicine; Visit Provider Family Medicine
DX: M47.892 Other spondylosis, cervical region (principal)
CPT/HCPCS: 72141

== ENCOUNTER 2024-08-31 15:34 | Outpatient (CLI) | payer BC, SELFPAY ==
--- NOTE | ~2024-08-31 | XR_ITS ---
XR chest 2V DATE: 08/31/2024 15:56 INDICATION: Tuberculosis screening TECHNIQUE: 2 views COMPARISON: 10/08/2022 2 view chest FINDINGS: Bilateral hyperinflation. No pulmonary infiltrate or consolidation, pleural effusion or pul monary vascular congestion or pneumothorax is detected. Normal heart size. No hilar or mediastinal enlargement. Osteopenia. Mild thoracic dextroscoliosis. There is chronic moderate anterior wedge compression fract ure deformity at L1. Status post cholecystectomy. IMPRESSION: No active cardiopulmonary disease Chronic compression fracture deformity of L1 Reviewed, dictated and finalized at location A.
== END 2024-08-31 15:35 | disposition home or self-care (01) ==
PROVIDERS: PCP Family Medicine; Visit Provider Family Medicine
DX: Z20.1 Contact with and (suspected) exposure to tuberculosis (principal); M53.86 Other specified dorsopathies, lumbar region
CPT/HCPCS: 71046

== ENCOUNTER 2024-10-06 10:19 | Outpatient (CLI) | payer BC, SELFPAY ==
--- NOTE | ~2024-10-06 | MR_ITS ---
EXAMINATION: MR lumbar spine wo con DATE: 10/06/2024 11:16 INDICATION: Chronic low back pain. TECHNIQUE: Magnetic resonance imaging (MRI) of the lumbar spine was performed without intravenous con trast. Sequences included sagittal T2-weighted FSE, sagittal T2-weighted FS FSE, sagittal T1-weighted FSE, and axial T2-weighted FSE. COMPARISON: Lumbar spine MRI 11/28/2013 FINDINGS: There is 5 degrees levocurvature of lumbar spine. There are chronic compression fractures o f T11 and T12. Intervertebral disc heights are normal. The distal spinal cord signal intensity is nor mal. The conus medullaris is at T12-L1. The following disc levels are specifically discussed: L1-L2: The disc is bulging and has an annular fissure. There is mild bilateral facet joint osteoarthr itis. There is no neural foraminal stenosis. There is mild central canal stenosis. L2-L3: The disc is bulging. There is mild bilateral facet joint osteoarthritis. There is mild bilater al neural foraminal stenosis. There is no central canal stenosis. L3-L4: The disc is bulging. There is mild right and moderate left facet joint osteoarthritis. There i s mild bilateral neural foraminal stenosis. There is mild central canal stenosis. L4-L5: The disc is mildly bulging. There is severe right and mild left facet joint osteoarthritis. Th ere is mild bilateral neural foraminal stenosis. There is no central canal stenosis. L5-S1: The disc does not extend beyond the endplate margin. There is mild bilateral facet joint osteo arthritis. There is no neural foraminal stenosis. There is no central canal stenosis. IMPRESSION: 1. Mild lumbar spondylosis, worsened from 11/28/2013. Reviewed, dictated and finalized at location A. 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
== END 2024-10-06 10:20 | disposition home or self-care (01) ==
LOC: CHSIMG 10:22
PROVIDERS: PCP Family Medicine; Visit Provider Nurse Practitioner Family
DX: M54.16 Radiculopathy, lumbar region (principal); M43.06 Spondylolysis, lumbar region
CPT/HCPCS: 72148

== ENCOUNTER 2024-10-11 08:04 | Outpatient (CLI) | payer BC, SELFPAY ==
--- NOTE | ~2024-10-11 | DEXA_ITS ---
Bone Density Report Name: TOM JAIME Age: 63 Sex: Female Ethnicity: White Date of : 1960 Indication: postmenopausal; screening for osteoporosis; height loss; prior fracture; Referring Provider: Carlie Valencia Study: Bone densitometry was performed. Exam Date: October 11, 2024 Accession number: [id number] Bone Density: Region BMD T-score Z-score Classification AP Spine(L1, L2, L3) 0.748 -2.5 -0.8 Osteoporosis Femoral Neck (Left) 0.490 -3.2 -1.8 Osteoporosis Total Hip (Left) 0.681 -2.1 -1.0 Osteopenia Femoral Neck (Right) 0.445 -3.6 -2.2 Osteoporosis Total Hip (Right) 0.640 -2.5 -1.3 Osteoporosis Femoral Neck Mean 0.468 -3.4 -2.0 Osteoporosis Total Hip Mean 0.660 -2.3 -1.2 Osteopenia World Health Organization criteria for BMD impression classify patients as: Normal (T-score at or above -1.0), Osteopenia (T-score between -1.0 and -2.5), or Osteoporosis (T-score at or below -2.5). 10-year Fracture Risk: FRAX not reported because: Some T-score for Spine Total or Hip Total or Femoral Neck at or below -2.5 Prior hip or vertebral fracture Clinical Information Provided by Patient: Have had a previous hip or vertebral fracture Has had a low trauma fracture Patient maximum height was 65 Menopause Age: 45 Drinks caffeinated beverages Onset of menses at age 12 Number of children 2 Impression: The patient has established osteoporosis, based on the Right Femoral Neck T-score and the existence of a prior fracture. The patient has risk factors, including: previous fracture. Discussion: HIGH RISK OF FRACTURE. BONE DENSITY IS UNDESIRABLY LOW AT ONE OR MORE SKELETAL SITES, CONSISTENT WITH POSTMENOPAUSAL OSTEOPOROSIS. This patient's lowest T-score, in a patient who has previously fractured, meets the World Health Organization's (WHO) criteria for severe osteoporosis. In untreated patients, the risk of osteoporotic fracture increases approximately two-fold for each 1.0 SD decrease in T-score. Low bone density is not the only risk factor for fracture; also consider factors such as patient's age, frailty or poor health, risk of falling, risk of injury, previous osteoporotic fracture, family history of osteoporosis, cigarette smoking, low body weight, etc. Not everyone with low bone mineral density has osteoporosis; osteomalacia and other metabolic bone disorders should also be considered. Patients who have osteoporosis should be evaluated for specific diseases and conditions (secondary causes) that may cause or contribute to bone loss. The [place] Association of Clinical Endocrinologists (AACE) and National Osteoporosis Foundation (NOF) recommend pharmacologic intervention for all postmenopausal women with a previous hip or vertebral fracture and a T-score in this range. The patient should follow a healthful lifestyle (good nutrition with adequate calcium and vitamin D, and appropriate weight-bearing exercise). Follow-Up: Consider a repeat BMD and Vertebral Fracture Assessment (VFA) exam in 2 years or sooner if medically necessary, to reassess this patient's status. Reported by: JOSAFAT on 10/11/2024 8:28:00 AM. Reviewed, dictated and finalized at location A.
== END 2024-10-11 08:05 | disposition home or self-care (01) ==
PROVIDERS: PCP Family Medicine; Visit Provider Family Medicine
DX: Z78.0 Asymptomatic menopausal state (principal); M85.88 Other specified disorders of bone density and structure, other site; M81.0 Age-related osteoporosis without current pathological fracture
CPT/HCPCS: 77080

== ENCOUNTER 2024-10-22 16:17 | Outpatient (CLI) | payer BC, SELFPAY ==
--- NOTE | ~2024-10-22 | XR_ITS ---
XR foot RT min 3V Ordering provider: Carlie Valencia NP History: . M79.581 - Pain in right foot injury . Comparison: None. FINDINGS: BONES: No acute fracture or dislocation. Early calcaneal spur. JOINT SPACES: Narrowing of the proximal and distal interphalangeal joints. No tarsal coalition. SOFT TISSUES: Normal. IMPRESSION: No acute osseous abnormality of the right foot. Slight narrowing of the proximal and distal interphalangeal joints. Reviewed, dictated and finalized at location A. SURGICAL PCU
== END 2024-10-22 16:18 | disposition home or self-care (01) ==
LOC: CHSIMG 16:18
PROVIDERS: PCP Family Medicine; Visit Provider Family Medicine
DX: M79.671 Pain in right foot (principal)
CPT/HCPCS: 73630

== ENCOUNTER 2025-01-09 16:59 | Outpatient (CLI) | payer OTHER, SELFPAY ==
[2025-01-09 17:29] LABS: Basophils Absolute Auto 0.05 K/mm3 (0.00-0.10); Basophils Percent Auto 0.4 % (0.0-1.0); Eosinophils Absolute Auto 0.22 K/mm3 (0.02-0.50); Eosinophils Percent Auto 1.9 % (1.0-6.0); Hemoglobin 13.4 g/dL (12.0-15.0); Immature Granulocyte Absolute 0.05 K/mm3 (0.00-0.00); Immature Granulocyte Percent A 0.4 % (0.0-0.0); Lymphocytes Absolute Auto 4.28 K/mm3 (1.10-4.50); Mean Corpuscular HGB Conc 31.2 g/dL (32-36); Mean Corpuscular Hemoglobin 29.7 pg (27.0-31.0); Mean Corpuscular Volume 95.3 fL (78.0-102.0); Mean Platelet Volume 9.3 fl (9.2-11.8); Monocytes Absolute Auto 0.69 K/mm3 (0.10-0.90); Neutrophils Absolute Auto 6.28 K/mm3 (1.70-7.20); Neutrophils Percent Auto 54.3 % (50.0-70.0); Platelet Count Result 284 K/mm3 (150-420); Red Blood Count 4.51 M/mm3 (4.20-5.40); Red Cell Distribution Width 13.4 % (11.6-14.4); White Blood Count 11.6 K/mm3 (4.8-10.8)
[2025-01-09 17:44] LABS: Hemoglobin A1C 5.7 % (<5.7)
[2025-01-09 17:55] LABS: Alanine Aminotransferase 22 U/L (14-59); Alkaline Phosphatase 92 U/L (46-116); Anion Gap 7 mmol/L (4-12); Aspartate Amino Transferase 16 U/L (15-37); Bilirubin,Total 0.5 mg/dL (0.00-1.00); Blood Urea Nitrogen 16 mg/dL (7-18); Calcium 10.6 mg/dL (8.5-10.1); Carbon Dioxide 30 mmol/L (21-32); Chloride 107 mmol/L (98-108); Cholesterol 191 mg/dL (0-200); Estimated Glomerular Filt Rate 44; Glucose 89 mg/dL (70-99); HDL Direct 69 mg/dL (40-60); LDL Cholesterol Calculated 111 mg/dL (<130); Osmolality Calculated 298 mOsm/kg (285-295); Potassium 4.4 mmol/L (3.5-5.1); Sodium 144 mmol/L (136-145); Total Protein 7.1 g/dL (6.4-8.2); Triglycerides 56 mg/dL (0-150)
[2025-01-09 17:57] LABS: Free T4 Free Thyroxine Reflex 0.81 ng/dL (0.76-1.46)
--- OUTSIDE RECORDS SUMMARY | 2025-01-09 17:58 | XMS_ITS | Encounter Summary ---
Author Organization [facility] Address 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
--- OUTSIDE RECORDS SUMMARY | 2025-01-09 17:58 | XMS_ITS | Encounter Summary ---
Author Organization [facility] Address 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
--- OUTSIDE RECORDS SUMMARY | 2025-01-09 17:58 | XMS_ITS | Encounter Summary ---
Author Organization [facility] Address [address] [place] [address] Care Team Providers Care Certified Activities Director Name Role Phone Misael Ferraro MD Primary Care Provider Unavailab le Encounter Details Date Type Department Care Team (Late st Contact Info) Description 08/14/2003 Outpatient [facility] Primary Care [address] [place] [phone] Natalie Matute MD NO ADDRESS ON FILE Social History Tobacco Use Types Packs/Day Years Used Date Smoking Tobacco: Never Assessed Comments Unknown Sex and Gender Information Value Date Recorded Sex Assigned at Not on file Legal Sex Female 2:55 AM SHIFT COMMANDER Gender Identity Not on file Sexual Orientation Not on file documented as of this encounter Plan of Treatment Not on file documented as of this encounter Visit Diagnoses Not on filedocumented in this encounter Care Teams Certified Activities Director Relationship Specialty Start Date End Date Misael Ferraro MD PCP - General Family Practice 09/29/12 documented as of this encounter
--- OUTSIDE RECORDS SUMMARY | 2025-01-09 17:58 | XMS_ITS | Encounter Summary ---
Author Organization [facility] Address 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
--- OUTSIDE RECORDS SUMMARY | 2025-01-09 17:58 | XMS_ITS | Clinical Summary ---
Author Organization [employer] [facility] Address [address] [place] [address] Phone Care Team Providers Care Ventilation Mechanic Name Role Phone Misael Ferraro MD Primary Care Provider Unavailab le Allergies Active Allergy Reactions Criticality Noted Date Comments Codeine Unknown 09/29/2012 Latex Unknown 09/29/2012 Medications No known medications Active Problems No known active problems Family History Medical History Relation Name Comments Heart Disease Brother Diabetes Father Other Father Heart Disease Maternal Grandmother Diabetes Mother Heart Disease Mother Relation Name Status Comments Brother Father Maternal Grandfather Maternal Grandmother Mother Paternal Grandfather Paternal Grandmother Social History Tobacco Use Types Packs/Day Years Used Date Smoking Tobacco: Former Comments Unknown Sex and Gender Information Value Date Recorded Sex Assigned at Not on file Legal Sex Female 2:55 AM DRAFTER CASTINGS Gender Identity Not on file Sexual Orientation Not on file Last Filed Vital Signs Vital Sign Reading Time Taken Comments Blood Pressure 140/82 09/29/2012 1:31 PM DRAFTER CASTINGS Pulse - - Temperature 36.8 C (98.3 F) 09/29/2012 1:31 PM DRAFTER CASTINGS Respiratory Rate - - Oxygen Saturation - - Inhaled Oxygen Concentration - - Weight 81.6 kg (180 lb) 09/29/2012 1:31 PM DRAFTER CASTINGS Height 166.4 cm (5' 5.5 ) 09/29/2012 1:31 PM DRAFTER CASTINGS Body Mass Index 29.5 09/29/2012 1:31 PM DRAFTER CASTINGS Plan of Treatment Health Maintenance Due Date Last Done Comments DTAP/TDAP/TD VACCINES (1 - Tdap) 1979 CERVICAL CANCER SCREENING 1990 BREAST CANCER SCREENING 2000 COLORECTAL SCREENING 2005 Colorectal Cancer Screening 2005 FIT-DNA Q 3 years 2005 FIT/FOBT Q 1 year 2005 Flex Sig/CT Colonography Q 5 years 2005 ZOSTER VACCINE (1 of 2) 2010 INFLUENZA VACCINE (#1) 2024 RSV VACCINE (60+ or ) (1 - 1-dose 75+ series) 2035 PNEUMOCOCCAL VACCINE 0-49 YEARS Aged Out No longer eligible based on patient's age to complete this topic Insurance [facility] [facility] [place] [facility] Address: [address] [address] Care Teams Ventilation Mechanic Relationship Specialty Start Date End Date Misael Ferraro MD PCP - General Family Practice 09/29/12
--- OUTSIDE RECORDS SUMMARY | 2025-01-09 17:58 | XMS_ITS | Encounter Summary ---
Author Organization [facility] Address [address] [place] [address] Care Team Providers Care Hospital Scientist Name Role Phone Misael Ferraro MD Primary Care Provider Unavailab le Encounter Details Date Type Department Care Team (Late st Contact Info) Description 03/23/[address] [facility] Primary Care [address] [place] [address] Thee Aly, DO NO ADDRESS ON FILE Social History Tobacco Use Types Packs/Day Years Used Date Smoking Tobacco: Never Assessed Comments Unknown Sex and Gender Information Value Date Recorded Sex Assigned at Not on file Legal Sex Female 2:55 AM PROBATE PARALEGAL Gender Identity Not on file Sexual Orientation Not on file documented as of this encounter Plan of Treatment Not on file documented as of this encounter Visit Diagnoses Not on filedocumented in this encounter Care Teams Hospital Scientist Relationship Specialty Start Date End Date Misael Ferraro MD PCP - General Family Practice 09/29/12 documented as of this encounter
--- OUTSIDE RECORDS SUMMARY | 2025-01-09 17:58 | XMS_ITS | Encounter Summary ---
Author Organization [facility] Address 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
--- OUTSIDE RECORDS SUMMARY | 2025-01-09 17:58 | XMS_ITS | Encounter Summary ---
Author Organization [facility] Address 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
--- OUTSIDE RECORDS SUMMARY | 2025-01-09 17:58 | XMS_ITS | Encounter Summary ---
Author Organization [facility] Address [address] [place] [address] Care Team Providers Care Loom Operator Apprentice Name Role Phone Misael Ferraro MD Primary Care Provider Unavailab le Encounter Details Date Type Department Care Team (Latest Contact Info) Description 02/24/2007 Outpatient Historical [facility] Welcome Thee DO Bertha NO ADDRESS ON FILE Abdominal Pain, Right Lower Quadrant (Primary Dx) Social History Tobacco Use Types Packs/Day Years Used Date Smoking Tobacco: Never Assessed Comments Unknown Sex and Gender Information Value Date Recorded Sex Assigned at Not on file Legal Sex Female 2:55 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 Gender Identity Not on file Sexual Orientation Not on file documented as of this encounter Plan of Treatment Not on file documented as of this encounter Procedures Procedure Name Priority Date/Time Associated Diagnosis Comments URINALYSIS W/REFLEX MICROSCOPIC Routine 02/24/2007 10:26 AM CDT BASIC METABOLIC PANEL Routine 02/24/2007 10:26 AM CDT documented in this encounter Results * URINALYSIS (02/24/2007 10:26 AM CDT) COLOR UA Yellow INTERFACE SYSTEM CLARITY UA Clear Clear INTERFACE SYSTEM SPECIFIC GRAVITY UA 1.016 1.001 - 1.035 INTERFACE SYSTEM PH UA 8.0 5.0 - 8.0 INTERFACE SYSTEM LEUKOCYTE ESTERASE UA Negative Negative INTERFACE SYSTEM NITRITE UA Negative Negative INTERFACE SYSTEM PROTEIN UA Negative Negative INTERFACE SYSTEM GLUCOSE UA Negative Negative INTERFACE SYSTEM KETONES UA Negative Negative INTERFACE SYSTEM UROBILINOGEN UA <1 <=1 mg/dL INTE RFACE SYSTEM BILIRUBIN UA Negative Negative INTERFA CE SYSTEM BLOOD UA Negative Negative INTERFACE SYSTEM 02/24/2007 10:2 6 AM CDT Thee Aly DO URINE ORDERABLES Edited Performing Organization Address [facility] Co de Phone Number INTERFACE SYSTEM Refer to clinic/hospital department * (ABNORMAL) BASIC METABOLIC PANEL (02/24/2007 10:26 AM CDT) GLUCOSE 100(H) 65 - 99 mg/dL INTERFACE SYSTEM CREATININE 0.66 0.51 - 0.95 mg/dL INTERFACE SYSTEM CALCIUM 10.1 8.4 - 10.2 mg/dL INTERFACE SYSTEM BUN 9 6 - 20 mg/dL INTERFACE SYSTEM SODIUM 140 135 - 145 mmol/L INTERFACE SYSTEM POTASSIUM 4.0 3.5 - 4.9 mmol/L INTERFACE SYSTEM CHLORIDE 108 96 - 108 mmol/L INTERFACE SYSTEM CO2 24 22 - 30 mmol/L INTERFACE SYSTEM GFR, >60 >=60 mL/min/1. 7 sq meter INTERFACE SYSTEM GFR >60 >=60 mL/min/1. 7 sq meter INTERFACE SYSTEM Comment: Estimated GFR rate interpretative information for both Americans and non- Americans is available on the [facility] Intranet at: [email or web address] Select: Lab Policies and Procedures Select: Reference Ranges - GFR 02/24/2007 10:2 6 AM CDT Thee Aly DO CHEMISTRY ORDERABLES Edited Performing Organization Address [facility] Co de Phone Number INTERFACE SYSTEM Refer to clinic/hospital department documented in this encounter Visit Diagnoses Diagnosis Abdominal pain, right lower quadrant- Primary documented in this encounter Care Teams Loom Operator Apprentice Relationship Specialty Start Date End Date Misael Ferraro MD PCP - General Family Practice 09/29/12 documented as of this encounter
--- OUTSIDE RECORDS SUMMARY | 2025-01-09 17:58 | XMS_ITS | Encounter Summary ---
Author Organization [facility] Address [address] [place] [address] Care Team Providers Care Toddler Guide Name Role Phone Misael Ferraro MD Primary Care Provider Unavailab le Encounter Details Date Type Department Care Team (Late st Contact Info) Description 09/11/2004 Outpatient Historical [facility] ELECTRIC CELL TENDER - [address] [address] Booker Morrell MD [address] [place] [phone] Social History Tobacco Use Types Packs/Day Years Used Date Smoking Tobacco: Never Assessed Comments Unknown Sex and Gender Information Value Date Recorded Sex Assigned at Not on file Legal Sex Female 2:55 AM PRODUCTION 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
--- OUTSIDE RECORDS SUMMARY | 2025-01-09 17:58 | XMS_ITS | Encounter Summary ---
Author Organization [facility] Address [address] [place] [address] Care Team Providers Care Certified Surgical Tech/First Assistant Name Role Phone Misael Ferraro MD Primary Care Provider Unavailab le Encounter Details Date Type Department Care Team (Late st Contact Info) Description 03/02/2004 Outpatient [facility] Primary Care - [address] [place] [address] Thee Aly, DO NO ADDRESS ON FILE Social History Tobacco Use Types Packs/Day Years Used Date Smoking Tobacco: Never Assessed Comments Unknown Sex and Gender Information Value Date Recorded Sex Assigned at Not on file Legal Sex Female 2:55 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
--- OUTSIDE RECORDS SUMMARY | 2025-01-09 17:58 | XMS_ITS | Encounter Summary ---
Author Organization [facility] Address [address] [place] [address] Care Team Providers Care Semiconductor Packages Tester Name Role Phone Misael Ferraro MD Primary Care Provider Unavailab le Encounter Details Date Type Department Care Team (Late st Contact Info) Description 07/29/[address] [facility] Primary Care [address] [place] [address] Natalie Matute MD NO ADDRESS ON FILE Social History Tobacco Use Types Packs/Day Years Used Date Smoking Tobacco: Never Assessed Comments Unknown Sex and Gender Information Value Date Recorded Sex Assigned at Not on file Legal Sex Female 2:55 AM APPLE PICKER Gender Identity Not on file Sexual Orientation Not on file documented as of this encounter Plan of Treatment Not on file documented as of this encounter Visit Diagnoses Not on filedocumented in this encounter Care Teams Semiconductor Packages Tester Relationship Specialty Start Date End Date Misael Ferraro MD PCP - General Family Practice 09/29/12 documented as of this encounter
--- OUTSIDE RECORDS SUMMARY | 2025-01-09 17:58 | XMS_ITS | Encounter Summary ---
Author Organization [facility] Address [address] [place] [address] Care Team Providers Care Wireless Team Member Name Role Phone Misael Ferraro MD Primary Care Provider Unavailab le Encounter Details Date Type Department Care Team (Late st Contact Info) Description 09/04/2004 Outpatient Historical 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
--- OUTSIDE RECORDS SUMMARY | 2025-01-09 17:58 | XMS_ITS | Encounter Summary ---
Author Organization [facility] Address [address] [place] [address] Care Team Providers Care Marketing Officer Name Role Phone Misael Ferraro MD Primary Care Provider Unavailab le Encounter Details Date Type Department Care Team (Late st Contact Info) Description 10/21/2004 Outpatient Historical [facility] HORSE TREKKING GUIDE - [address] [address] Booker Morrell MD [address] [place] [phone] Social History Tobacco Use Types Packs/Day Years Used Date Smoking Tobacco: Never Assessed Comments Unknown Sex and Gender Information Value Date Recorded Sex Assigned at Not on file Legal Sex Female 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
--- OUTSIDE RECORDS SUMMARY | 2025-01-09 17:58 | XMS_ITS | Encounter Summary ---
Author Organization [facility] Address 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
--- OUTSIDE RECORDS SUMMARY | 2025-01-09 17:58 | XMS_ITS | Encounter Summary ---
Author Organization [facility] Address [address] [place] [address] Care Team Providers Care Life Skills Coordinator Name Role Phone Misael Ferraro MD Primary Care Provider Unavailab le Encounter Details Date Type Department Care Team (Late st Contact Info) Description 06/15/2006 Outpatient [facility] Primary Care [address] [place] [phone] Natalie Matute MD NO ADDRESS ON FILE Social History Tobacco Use Types Packs/Day Years Used Date Smoking Tobacco: Never Assessed Comments Unknown Sex and Gender Information Value Date Recorded Sex Assigned at Not on file Legal Sex Female 2:55 AM DATABASE PROGRAMMER ANALYST Gender Identity Not on file Sexual Orientation Not on file documented as of this encounter Plan of Treatment Not on file documented as of this encounter Visit Diagnoses Not on filedocumented in this encounter Care Teams Life Skills Coordinator Relationship Specialty Start Date End Date Misael Ferraro MD PCP - General Family Practice 09/29/12 documented as of this encounter
--- OUTSIDE RECORDS SUMMARY | 2025-01-09 17:58 | XMS_ITS | Encounter Summary ---
Author Organization [facility] Address [address] [place] [address] Care Team Providers Care Marine Driller Name Role Phone Misael Ferraro MD Primary Care Provider Unavailab le Encounter Details Date Type Department Care Team (Late st Contact Info) Description 11/13/2004 Outpatient Historical [facility] LEAD PORTFOLIO MANAGER - [address] [address] Booker Morrell MD [address] [place] [phone] Social History Tobacco Use Types Packs/Day Years Used Date Smoking Tobacco: Never Assessed Comments Unknown Sex and Gender Information Value Date Recorded Sex Assigned at Not on file Legal Sex Female 2:55 AM PREFABRICATED HOUSES TRIMMER Gender Identity Not on file Sexual Orientation Not on file documented as of this encounter Plan of Treatment Not on file documented as of this encounter Visit Diagnoses Not on filedocumented in this encounter Care Teams Marine Driller Relationship Specialty Start Date End Date Misael Ferraro MD PCP - General Family Practice 09/29/12 documented as of this encounter
--- OUTSIDE RECORDS SUMMARY | 2025-01-09 17:58 | XMS_ITS | Encounter Summary ---
Author Organization [employer] Address [address] [place] [address] Care Team Providers Care Tetryl Boiling Tub Operator Name Role Phone Misael Ferraro MD Primary Care Provider Unavailab le Encounter Details Date Type Department Care Team (Latest Contact Info) Description 02/22/2003 [facility] SCREENING MAMM-MAILG NEOPL-OTHER (Primary Dx) Social History Tobacco Use Types Packs/Day Years Used Date Smoking Tobacco: Never Assessed Comments Unknown Sex and Gender Information Value Date Recorded Sex Assigned at Not on file Legal Sex Female 2:55 AM LINE CONTROLLER Gender Identity Not on file Sexual Orientation Not on file documented as of this encounter Plan of Treatment Not on file documented as of this encounter Visit Diagnoses Diagnosis Other screening mammogram- Primary documented in this encounter Care Teams Tetryl Boiling Tub Operator Relationship Specialty Start Date End Date Misael Ferraro MD PCP - General Family Practice 09/29/12 documented as of this encounter
--- OUTSIDE RECORDS SUMMARY | 2025-01-09 17:58 | XMS_ITS | Encounter Summary ---
Author Organization [facility] Address 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
--- OUTSIDE RECORDS SUMMARY | 2025-01-09 17:59 | XMS_ITS | Encounter Summary ---
Author Organization [facility] Address [address] [place] [address] Care Team Providers Care Yarn Skeins Examiner Name Role Phone Misael Ferraro MD Primary Care Provider Unavailab le Encounter Details Date Type Department Care Team (Late st Contact Info) Description 11/28/2001 Outpatient [facility] Primary Care [address] [place] [address] Thee Aly, DO NO ADDRESS ON FILE Social History Tobacco Use Types Packs/Day Years Used Date Smoking Tobacco: Never Assessed Comments Unknown Sex and Gender Information Value Date Recorded Sex Assigned at Not on file Legal Sex Female 2:55 AM UNION CARPENTER Gender Identity Not on file Sexual Orientation Not on file documented as of this encounter Plan of Treatment Not on file documented as of this encounter Visit Diagnoses Not on filedocumented in this encounter Care Teams Yarn Skeins Examiner Relationship Specialty Start Date End Date Misael Ferraro MD PCP - General Family Practice 09/29/12 documented as of this encounter
--- OUTSIDE RECORDS SUMMARY | 2025-01-09 17:59 | XMS_ITS | Referral Summary ---
Author Organization [facility] al Address [address] [place] [address] Care Team Providers Care General Administrator Name Role Phone Marifer Gupta NP Primary Care Provide r Becki FENTON MD, Aroldo Cruz Unavailable [phone] Allergies Active Allergy Reactions Criticality Noted Date Comments Codeine Stomach upset Low 04/28/2016 Latex Rash Medium 04/28/2016 Medications cholecalciferol (VITAMIN D-3) 10,000 unit tablet Take 1 tablet (10,000 Units total) by mouth daily Active gabapentin (NEURONTIN) 100 mg capsule Take 1 capsule (100 mg total) by mouth 2 (two) times a day Active propranolol LA (INDERAL LA) 80 mg 24 hr capsule Take 1 capsule (80 mg total) by mouth daily 2 Active levothyroxine (SYNTHROID) 25 mcg tablet Take 1 tablet (25 mcg total) by mouth daily 1 Active diazePAM (VALIUM) 10 mg tablet Take 1 tablet (10 mg total) by mouth 4 (four) times a day as needed 2 Active HYDROcodone-melida taminophen (NORCO) 10-325 mg per tablet Take 1 tablet by mouth every 6 (six) hours as needed 2 Active ketorolac (TORADOL) 10 mg tablet Take 1 tablet (10 mg total) by mouth every 8 (eight) hours as needed for pain 25 tablet 2 Active oxybutynin (DITROPAN) 5 mg tablet Take 1 tablet (5 mg total) by mouth 3 (three) times a day as needed (for bladder spasm) for up to 8 days 25 tablet 2 Active [place] Thyroid 30 mg tablet TAKE 1 TABLET BY MOUTH ONCE DAILY ONE HOUR BEFORE BREAKFAST 3 Active Active Problems Problem Noted Date Diagnosed Date Neck pain 03/07/2023 Assessment & Plan (03/07/2023 10:21 AM CDT): Ms. Tamra Armijo is a 62 y.o. female, who presents for evaluation of neck pain. She developed neck pain in the . 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 The pain improves with putting pressure in the base of the skull and worsens with head movements. There is no associated pulling sensation. 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 At the time, there was not a specific treatment for it. She also deals with frequent back pain. She has tried different treatment modalities for her pain, including gabapentin and diazepam, and therapy. There is no family history of dystonia. On examination, there is a mild anterior shift with mild postural and kinetic tremor in the hands without any dystonic posture in the limbs. History and examination are compatible with neck pain. 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 The mild change in the neck posture could be a result of musculoskeletal changes or a mild form of dystonia. We will order a cervical spine MRI to assess radiculopathy. The degree of pain seems significant compared to the mild anterior shift. It is unclear whether treating the anterior shift with botulinum toxin will improve her pain and we had a long discussion about it. We talked about potentially trying it and see what happens. Potential side effects of the injections were reviewed including but not limited to weakness, dysphagia, local pain, bruising and infection. Alternatives to chemodenervation were discussed. We also talked about the use of lower doses initially to minimize the occurrence of side effects, which can also result in lack of improvement of her after the initial sessions. Finally, it was discussed that benefits and side effects are temporary and she will need to return for additional injections in three months. Plan: 1. She is planning to pay out of pocket for the injection. Sent a request to the staff to estimate the cost of 100 units of Botox. 2. MRI cervical spine without contrast. Potential medication side effects were discussed during the encounter. Left ureteral stone 03/01/2022 Overview (03/01/2022): Added automatically from request for surgery [id number] History of kidney stones 02/10/2022 Bilateral flank pain 02/10/2022 Nephrolithiasis 01/04/2022 Vitamin D deficiency 01/04/2022 Paradoxical vocal fold motion disorder 9 Assessment & Plan (08/28/2019 1:49 PM CDT): I have recommended laryngeal control therapy here at the [facility] in order to control the patient's symptoms. The patient's diagnosis was discussed in detail along with how therapy can improve it. 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 No intervention necessary. Pharyngoesophageal dysphagia 08/28/2019 Assessment & Plan (08/28/2019 1:51 PM CDT): MBSS to better evaluate dysphagia and possible upper esophageal diverticulum previously seen on an EGD. RADHA (obstructive sleep apnea) 06/12/2019 Wheezing 06/12/2019 Axillary mass 04/22/2016 Chronic bronchitis Social History Tobacco Use Types Packs/Day Years Used Date Smoking Tobacco: Never Smokeless Tobacco: Never Alcohol Use Standard Drinks/Week Comments Never 0 (1 standard drink = 0.6 oz pur e alcohol) AUDIT-C Answer Date Recorded Q1: How often do you have a drink containing alc ohol? 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 Gender Identity Not on file Sexual Orientation Not on file Last Filed Vital Signs Vital Sign Reading Time Taken Comments Blood Pressure 114/87 02/09/2023 8:08 AM CDT Pulse 74 02/09/2023 8:08 AM CDT Temperature 37 C (98.6 F) 10/13/2022 1:26 PM UPHOLSTERY BUNDLER Respiratory Rate 18 09/14/2022 4:58 PM UPHOLSTERY BUNDLER Oxygen Saturation 100% 09/14/2022 11:50 PM UPHOLSTERY BUNDLER Inhaled Oxygen Concentration - - Weight 64.9 kg (143 lb) 02/09/2023 8:08 AM CDT Height 165.1 cm (5' 5 ) 02/09/2023 8:08 AM CDT Body Mass Index 23.8 02/09/2023 8:08 AM CDT Plan of Treatment Not on file Medical Devices Explanted Type Area Progressive Care Unit Registered Nurse Device Identifier Shelf Expiration Date Model / Serial / Lot [employer] Universa 6fr 26cm Radiopaque Positioner Monofilament Tether 2 [id number] - [id number] Implanted:Qty: 1 on 03/16/2022 by Manav Iqbal MD at [facility] Explanted:Qty: 1 on 03/31/2022 by Manav Iqbal MD Left: Ureter [employer] 01/20/2025 [id number] / / [id number] [employer] Jagruti Contour 6fr 24cm Large Inner Lumen Low Profile Bladder Jori Taper Latex Free 180-222 - [id number] Implanted:Qty: 1 on 04/05/2022 by Nademe Zhang MD at [facility] Explanted:Qty: 1 on 04/21/2022 by Nadeem Zhang MD Left: Ureter [employer] Jagruti 12/23/2024 180-222 / / [id number] Procedures Procedure Name Priority Date/Time Associated Diagnosis Comments DIAGNOSTIC MAMMOGRAM BILATERAL W GARRISON Routine 04/28/2016 2:42 PM CDT from Last 3 Months or Most Recently Relevant to Health Maintenance Results * DIAGNOSTIC MAMMOGRAM BILATERAL W GARRISON (04/28/2016 2:42 PM CDT) Anatomical Region Laterality Modality Breast Bilateral Mammography 04/28/2016 2:42 PM CDT Narrative 04/28/2016 3:47 PM CDT TAE DOWNING M.D. LEANN PARK M.D. FINAL REPORT The radiology attending physician has personally reviewed this study, and has reviewed and/or edited this written report and agrees with it. ACC# Date Time Exam [id number] Apr 28, 2016 14:42:00 [facility] [id number] Diag Mammogram Bilateral Technologist(s): Akosua Sprinegr; ; [id number] Apr 28, 2016 14:42:00 [facility] [address]3227 Dig Breast Garrison Andrzej Technologist(s): Akosua Springer; ; ACC# Date Time Exam [id number] Apr 28, 2016 14:42:00 [facility] [id number] Diag Mammogram Bilateral Technologist(s): Akosua Springer; ; [id number] Apr 28, 2016 14:42:00 [facility] 17063 Dig Breast Garrison Andrzej Technologist(s): Akosua Springer; ; EXAMINATION: BILATERAL FULL FIELD DIGITAL DIAGNOSTIC MAMMOGRAM WITH CAD AND DIGITAL BREAST TOMOSYNTHESIS HISTORY: 55 year woman with previously seen heterogenous calcifications in the left upper outer breast. Biopsy was recommended at an outside hospital, however the patient refused biopsy. TECHNIQUE: Full field digital craniocaudal and mediolateral oblique views of both breasts were obtained. Computer Aided Detection was performed with Nuenz.3 version 9.3. Digital breast tomosynthesis was performed and reviewed as a part of this examination. Additional spot magnification views of both breasts were also performed. COMPARISON: 05/13/2014, 09/26/2013. BREAST PARENCHYMAL COMPOSITION: There are scattered areas of fibroglandular density.. FINDINGS: There are heterogenous calcifications in the upper outer right breast in a linear distribution. These are unchanged from the previous exam. There are grouped heterogenous calcifications in the left breast at 3 o'clock position posterior depth, unchanged from the previous examination. IMPRESSION: 1) Heterogenous calcifications in a linear distribution in the upper outer right breast are unchanged from the previous exam but remain indeterminate based on their morphology and distribution. 2) Heterogenous calcifications in the left breast at 3 o'clock position, posterior depth are unchanged from the previous exam but remain indeterminate based on their morphology and distribution. The above findings and recommendations were discussed with the patient at the conclusion of the examination and were subsequently communicated to the referring clinician, Dr. Lilia Ramirez in a written report. The patient again refused stereotactic guided core needle biopsy OVERALL FINAL ASSESSMENT: BI-RADS Category 4A: Suspicious abnormality. Low suspicion for malignancy. Requested By: Dictated By: LEANN PARK M.D. on Apr 28 2016 3:14P This document has been electronically signed by: TAE DOWNING M.D. on Apr 28 2016 3:47P [id number] Procedure Note Provider, MD Radha - 02/19/2017 TAE DOWNING M.D. LEANN PARK M.D. FINAL REPORT The radiology attending physician has personally reviewed this study, and has reviewed and/or edited this written report and agrees with it. ACC# Date Time Exam [id number] Apr 28, 2016 14:42:00 [facility] [id number] Diag Mammogram Bilateral Technologist(s): Akosua Springre; ; [id number] Apr 28, 2016 14:42:00 [facility] [address]1983 Dig Breast Garrison Andrzej Technologist(s): Akosua Springer; ; ACC# Date Time Exam [id number] Apr 28, 2016 14:42:00 [facility] [id number] Diag Mammogram Bilateral Technologist(s): Akosua Springer; ; [id number] Apr 28, 2016 14:42:00 [facility] [id number] Dig Breast Garrison Andrzej Technologist(s): Akosua Springer; ; EXAMINATION: BILATERAL FULL FIELD DIGITAL DIAGNOSTIC MAMMOGRAM WITH CAD AND DIGITAL BREAST TOMOSYNTHESIS HISTORY: 55 year woman with previously seen heterogenous calcifications in the left upper outer breast. Biopsy was recommended at an outside hospital, however the patient refused biopsy. TECHNIQUE: Full field digital craniocaudal and mediolateral oblique views of both breasts were obtained. Computer Aided Detection was performed with [employer] 1.3 version 9.3. Digital breast tomosynthesis was performed and reviewed as a part of this examination. Additional spot magnification views of both breasts were also performed. COMPARISON: 05/13/2014, 09/26/2013. BREAST PARENCHYMAL COMPOSITION: There are scattered areas of fibroglandular density.. FINDINGS: There are heterogenous calcifications in the upper outer right breast in a linear distribution. These are unchanged from the previous exam. There are grouped heterogenous calcifications in the left breast at 3 o'clock position posterior depth, unchanged from the previous examination. IMPRESSION: 1) Heterogenous calcifications in a linear distribution in the upper outer right breast are unchanged from the previous exam but remain indeterminate based on their morphology and distribution. 2) Heterogenous calcifications in the left breast at 3 o'clock position, posterior depth are unchanged from the previous exam but remain indeterminate based on their morphology and distribution. The above findings and recommendations were discussed with the patient at the conclusion of the examination and were subsequently communicated to the referring clinician, Dr. Lilia Ramirez in a written report. The patient again refused stereotactic guided core needle biopsy OVERALL FINAL ASSESSMENT: BI-RADS Category 4A: Suspicious abnormality. Low suspicion for malignancy. Requested By: Dictated By: LEANN PARK M.D. on Apr 28 2016 3:14P This document has been electronically signed by: TAE DOWNING M.D. on Apr 28 2016 3:47P [id number] Historical Provider MD SOLITARIO MAMMO PROCEDURES Deana l Result from Last 3 Months or Most Recently Relevant to Health Maintenance Insurance [employer] OPEN ACCESS [facility] HMO/PPO Address: [address] [address] [place] [address] [facility] CHOICE PLUS [facility] HMO/PPO Address: [facility] [address] [place] [address] Care Teams General Administrator Relationship Specialty Start Date End Date Marifer Gupta NP [address] [place] [address] PCP - General Nurse Practitioner 01/04/22 Aroldo Connell III, MD [address] [place] [address] Referring Physician Neurology 11/11/22
--- OUTSIDE RECORDS SUMMARY | 2025-01-09 17:59 | XMS_ITS | Encounter Summary ---
Author Organization [facility] Address 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
--- OUTSIDE RECORDS SUMMARY | 2025-01-09 17:59 | XMS_ITS | Clinical Summary ---
Author Organization [facility] al Address [address] [place] [address] Care Team Providers Care Mill Manager Name Role Phone Marifer Gupta NP Primary Care Provide r Becki FENTON MD, Aroldo Cruz Unavailable [phone] Allergies Active Allergy Reactions Criticality Noted Date [...] to 8 days 25 tablet 2 Active [place] Thyroid 30 mg tablet TAKE 1 TABLET [...] note, in the , she had Guillain [place], which affected her four limbs and swallowing. [...] is neuropathic pain related to prior Guillain [place] injury. The mild change in the neck [...] (03/01/2022): Added automatically from request for surgery [id number] History of kidney stones 02/10/2022 Bilateral flank pain 02/10/2022 Nephrolithiasis 01/04/2022 Vitamin D deficiency 01/04/2022 Paradoxical vocal fold motion disorder 9 Assessment & Plan (08/28/2019 1:49 PM CDT): I have recommended laryngeal control therapy here at the [facility] in order [...] Wheezing 06/12/2019 Axillary mass 04/22/2016 Chronic bronchitis Surgical History Surgery Date Site/Laterality Comments CHOLECYSTECTOMY ELBOW SURGERY x3 TONSILLECTOMY AND ADENOIDECTOMY Medical History Medical History Date Comments PONV (postoperative nausea and vomiting) GERD (gastroesophageal reflux disease) Guillain Rehman syndrome Irritable bowel syndrome Kidney stone Kidney cyst, acquired Hypothyroidism Family History Medical History Relation Name Comments Tremor Daughter No Known Problems Father Diabetes Mother Heart disease Mother Relation Name Status Comments Daughter Alive Father Mother Social History Tobacco Use Types Packs/Day Years [...] on file 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 Gender Identity Not on file Sexual Orientation Not on file Obstetrics History Last Filed Vital Signs Vital Sign Reading Time Taken Comments Blood Pressure 114/87 02/09/2023 8:08 AM CDT Pulse 74 02/09/2023 8:08 AM CDT Temperature 37 C (98.6 F) 10/13/2022 1:26 PM REFINED SYRUP OPERATOR Respiratory Rate 18 09/14/2022 4:58 PM REFINED SYRUP OPERATOR Oxygen Saturation 100% 09/14/2022 11:50 PM REFINED SYRUP OPERATOR Inhaled Oxygen Concentration - - Weight 64.9 kg (143 lb) 02/09/2023 8:08 AM CDT Height 165.1 cm (5' 5 ) 02/09/2023 8:08 AM CDT Body Mass Index 23.8 02/09/2023 8:08 AM CDT Plan of Treatment Health Maintenance Due Date Last Done Comments Cervical Cancer Screening 1960 Colon Cancer Screening-Colonoscopy 1960 Depression Screening 1960 Hepatitis C Screening 1960 DTaP/Tdap/Td Vaccine (1 - Tdap) 1971 Hepatitis B Screening 1978 Regular Well Visit/Exam 18-64 1978 Zoster Vaccine (1 of 2) 2010 Breast Cancer Screening-Mammogram 04/28/2017 016 Influenza Vaccine (#1) 2024 Pneumococcal vaccine <65 Aged Out No longer eligible based on patient's age to complete this topic Medical Devices Explanted Type Area Master Control Technician Device Identifier Shelf Expiration Date Model / Serial / Lot [employer] Universa 6fr 26cm Radiopaque Positioner Monofilament Tether 2 [id number] - [id number] Implanted:Qty: 1 on 03/16/2022 by Manav Iqbal MD at [facility] Explanted:Qty: 1 on 03/31/2022 by Manav Iqbal MD Left: Ureter [employer] 01/20/2025 [id number] / / [id number] [employer] Jagruti Contour 6fr 24cm Large Inner Lumen Low Profile Bladder Jori Taper Latex Free 180-222 - [id number] Implanted:Qty: 1 on 04/05/2022 by Nadeem Zhang MD at [facility] Explanted:Qty: 1 on 04/21/2022 by Nadeem Zhang MD Left: Glenn Jade [employer] Jagruti 12/23/2024 180-222 / / [id number] Procedures Procedure Name Priority Date/Time Associated Diagnosis [...] agrees with it. ACC# Date Time Exam [id number] Apr 28, 2016 14:42:00 [place] [id number] Diag Mammogram Bilateral Technologist(s): Akosua Springer; ; [id number] Apr 28, 2016 14:42:00 [facility] [address] Dig Breast Garrison Andrzej Technologist(s): Akosua Springer; ; ACC# Date Time Exam [id number] Apr 28, 2016 14:42:00 [facility] 66970 Diag Mammogram Bilateral Technologist(s): Akosua Springer; ; [id number] Apr 28, 2016 14:42:00 [place] [id number] Dig Breast Garrison Andrzej Technologist(s): Akosua Springer; [...] obtained. Computer Aided Detection was performed with [employer].3 version 9.3. Digital breast tomosynthesis was performed [...] DOWNING M.D. on Apr 28 2016 3:47P [id number] Procedure Note Provider, MD Radha - 02/19/2017 TAE DOWNING M.D. LEANN PARK M.D. FINAL REPORT The radiology attending physician has personally reviewed this study, and has reviewed and/or edited this written report and agrees with it. ACC# Date Time Exam [id number] Apr 28, 2016 14:42:00 [facility] [address] Diag Mammogram Bilateral Technologist(s): Akosua Springer; ; [id number] Apr 28, 2016 14:42:00 [facility] [address] Dig Breast Garrison Andrzej Technologist(s): Akosua Springer; ; ACC# Date Time Exam [id number] Apr 28, 2016 14:42:00 [facility] 5[address] Diag Mammogram Bilateral Technologist(s): Akosua Springer; ; [id number] Apr 28, 2016 14:42:00 [facility] [address] Dig Breast Garrison Andrzej Technologist(s): Akosua Springer; [...] obtained. Computer Aided Detection was performed with [employer] version 9.3. Digital breast tomosynthesis was performed [...] DOWNING M.D. on Apr 28 2016 3:47P [id number] us Historical Provider MD SOLITARIO MAMMO PROCEDURES Deana l Result from Last 3 Months or Most Recently Relevant to Health Maintenance Insurance [employer] [place] [address] [place] [address] [facility] CHOICE PLUS Care Teams Mill Manager Relationship Specialty Start Date End Date Marifer Gupta NP [address] [place] [address] PCP - General Nurse Practitioner 01/04/22 Aroldo Connell III, MD [address] [place] [address] Referring Physician Neurology 11/11/22
--- OUTSIDE RECORDS SUMMARY | 2025-01-09 17:59 | XMS_ITS | Encounter Summary ---
Author Organization [facility] Address 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
--- OUTSIDE RECORDS SUMMARY | 2025-01-09 17:59 | XMS_ITS | Encounter Summary ---
Author Organization [facility] Address [address] [place] [address] Care Team Providers Care Treasury Consultant Name Role Phone Misael Ferraro MD Primary Care Provider Unavailab le Encounter Details Date Type Department Care Team (Late st Contact Info) Description 02/22/2003 Outpatient [facility] Primary Care [address] [place] [address] Thee Aly, DO NO ADDRESS ON FILE Social History Tobacco Use Types Packs/Day Years Used Date Smoking Tobacco: Never Assessed Comments Unknown Sex and Gender Information Value Date Recorded Sex Assigned at Not on file Legal Sex Female 2:55 AM CONE MARKER Gender Identity Not on file Sexual Orientation Not on file documented as of this encounter Plan of Treatment Not on file documented as of this encounter Visit Diagnoses Not on filedocumented in this encounter Care Teams Treasury Consultant Relationship Specialty Start Date End Date Misael Ferraro MD PCP - General Family Practice 09/29/12 documented as of this encounter
--- OUTSIDE RECORDS SUMMARY | 2025-01-09 17:59 | XMS_ITS | Encounter Summary ---
Author Organization [facility] Address [address] [place] [address] Care Team Providers Care Line Rider Name Role Phone Misael Ferraro MD Primary Care Provider Unavailab le Encounter Details Date Type Department Care Team (Late st Contact Info) Description 06/13/2001 Outpatient [facility] Primary Care [address] [place] [address] Thee Aly, DO NO ADDRESS ON FILE Social History Tobacco Use Types Packs/Day Years Used Date Smoking Tobacco: Never Assessed Comments Unknown Sex and Gender Information Value Date Recorded Sex Assigned at Not on file Legal Sex Female 2:55 AM WELDER OPERATOR Gender Identity Not on file Sexual Orientation Not on file documented as of this encounter Plan of Treatment Not on file documented as of this encounter Visit Diagnoses Not on filedocumented in this encounter Care Teams Line Rider Relationship Specialty Start Date End Date Misael Ferraro MD PCP - General Family Practice 09/29/12 documented as of this encounter
--- OUTSIDE RECORDS SUMMARY | 2025-01-09 17:59 | XMS_ITS | Encounter Summary ---
Author Organization [facility] Address 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
--- OUTSIDE RECORDS SUMMARY | 2025-01-09 17:59 | XMS_ITS | Encounter Summary ---
Author Organization [facility] Address [address] [place] [address] Phone Care Team Providers Care Svp Chief Marketing Officer Name Role Phone Marifer Gupta NP Primary Care Provide r Becki FENTON MD, Aroldo Cruz Unavailable [phone] Reason for Visit * Reason Onset Date Comments Appointment 07/02/2022 Encounter Details Date Type Department Care Team (Late st Contact Info) Description 07/02/2022 Telephone [facility] ENT [address] [facility] Medical Office Building [address] [address] Andrew Willard MD [address] [facility] [address] [place] [address] Appointment Social History Tobacco Use Types Packs/Day Years [...] on file Legal Sex Female 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
--- OUTSIDE RECORDS SUMMARY | 2025-01-09 17:59 | XMS_ITS | Encounter Summary ---
Author Organization [facility] Address [facility] [place] [address] Care Team Providers Care Sales And Production Manager Name Role Phone Unavailable Primary Care Provider Unavailabl e Encounter Details Date Type Department Care Team (Latest Contact Info) Description 09/05/2018 Abstract [facility] , Generic Conversion, Social History Tobacco Use Types Packs/Day Years Used Date Smoking Tobacco: Never Assessed Comments Unknown Sex and Gender Information Value Date Recorded Sex Assigned at Not on file Legal Sex Female 7:42 PM CDT Gender Identity Not on file Sexual Orientation Not on file documented as of this encounter Plan of Treatment Not on file documented as of this encounter Visit Diagnoses Not on filedocumented in this encounter
--- OUTSIDE RECORDS SUMMARY | 2025-01-09 17:59 | XMS_ITS | Encounter Summary ---
Author Organization [facility] Address 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
--- OUTSIDE RECORDS SUMMARY | 2025-01-09 17:59 | XMS_ITS | Encounter Summary ---
Author Organization [facility] Address 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
--- OUTSIDE RECORDS SUMMARY | 2025-01-09 17:59 | XMS_ITS | Encounter Summary ---
Author Organization [facility] Address 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
--- OUTSIDE RECORDS SUMMARY | 2025-01-09 17:59 | XMS_ITS | Encounter Summary ---
Author Organization [facility] Address [address] [place] [address] Care Team Providers Care Airplane Pilot Supervisor Name Role Phone Misael Ferraro MD Primary Care Provider Unavailab le Encounter Details Date Type Department Care Team (Late st Contact Info) Description 09/30/2000 Outpatient [facility] Primary Care - [address] [place] [phone] Thee Aly, DO NO ADDRESS ON FILE Social History Tobacco Use Types Packs/Day Years Used Date Smoking Tobacco: Never Assessed Comments Unknown Sex and Gender Information Value Date Recorded Sex Assigned at Not on file Legal Sex Female 2:55 AM PHARMACIST ASSISTANT Gender Identity Not on file Sexual Orientation Not on file documented as of this encounter Plan of Treatment Not on file documented as of this encounter Visit Diagnoses Not on filedocumented in this encounter Care Teams Airplane Pilot Supervisor Relationship Specialty Start Date End Date Misael Ferraro MD PCP - General Family Practice 09/29/12 documented as of this encounter
--- OUTSIDE RECORDS SUMMARY | 2025-01-09 17:59 | XMS_ITS | Encounter Summary ---
Author Organization [facility] Address 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
--- OUTSIDE RECORDS SUMMARY | 2025-01-09 17:59 | XMS_ITS | Clinical Summary ---
Author Organization [facility] Address [address] [address] Care Team Providers Care Bacteriologist Food Name Role Phone Víctor Thompson MD Primary Care Provider [phone] Source Comments [facility],non-owned Affiliates and Associated Physician Practices is amultiple site organization consisting of ambulatory clinics and hospital sitesin [place], [place], [place] and [place]. This disclosure is being madepursuant to the Care Everywhere program and may not contain all information available regarding this patient. Last updated 18.[facility] [employer] Allergies Active Allergy Reactions Criticality Noted Date Comments Codeine Unknown 09/29/2012 Latex Unknown 09/29/2012 Medications * Be aware that medications may not be up to date on this document. Alwaysverify current medications with the patient. Medication Sig Dispensed Refills Start Date End Date Status albuterol HFA (PROVENTIL;VENTOLIN;P ROAIR) 108 (90 Base) MCG/ACT inhaler Inhale 2 puffs by mouth every 4 hours as needed 6 04/26/2019 Active benzonatate (TESSALON) 100 MG capsule TAKE 1 CAPSULE BY MOUTH EVERY 8 HOURS NEEDED FOR COUGH FOR 7 DAYS 0 05/26/2019 Active diazePAM (VALIUM) 5 MG tablet TAKE 1 TABLET BY MOUTH THREE TIMES A DAY NEEDED 5 06/27/2019 Active TRELEGY ELLIPTA 100-62.5-25 MCG/INH INHALE 1 PUFF BY MOUTH ONCE A DAY RINSE MOUTH AFTER USE 6 05/16/2019 Active gabapentin (NEURONTIN) 100 MG capsule TAKE 2 CAPSULES BY MOUTH IN THE MORNING, 1 CAPSULE IN THE AFTERNOON AND 2 IN THE EVENING 3 07/24/2019 Active Nebulizers (VIOS AEROSOL DELIVERY SYSTEM) MISC USE 6 TIMES DAILY UTD PRN 0 05/26/2019 Active topiramate (TOPAMAX) 200 MG tablet Take 200 mg by mouth 2 times daily 5 07/20/2019 Active Social History Tobacco Use Types Packs/Day Years Used Date Smoking Tobacco: Former Smokeless Tobacco: Never Alcohol Use Standard Drinks/Week Comments Not Currently 0 (1 standard drink = 0.6 oz pur e alcohol) Sex and Gender Information Value Date Recorded Sex Assigned at Not on file Gender Identity Not on file Sexual Orientation Not on file Last Filed Vital Signs Vital Sign Reading Time Taken Comments Blood Pressure 114/73 08/16/2019 9:32 AM CDT Pulse 64 08/16/2019 9:32 AM CDT Temperature 36.3 C (97.4 F) 08/16/2019 9:32 AM CDT Respiratory Rate 20 08/16/2019 9:32 AM CDT Oxygen Saturation 97% 08/16/2019 9:32 AM CDT Inhaled Oxygen Concentration - - Weight 67.6 kg (149 lb) 08/16/2019 9:32 AM CDT Height 162.6 cm (5' 4 ) 08/16/2019 9:32 AM CDT Body Mass Index 25.58 08/16/2019 9:32 AM CDT Plan of Treatment Health Maintenance Due Date Last Done Comments COLOGUARD (AGES 45-75) - COL ON CA SCREENING 1960 COLON MONITORING 1960 COLONOSCOPY - COLON CA SCREENING 1960 CT COLONOGRAPHY - COLON CA SCREENING 1960 Colorectal Cancer Screening 1960 FIT - COLON CA SCREENING 1960 FLEX SIG - COLON CA SCREENING 1960 LIPID TESTING 1960 MAMMOGRAM 1960 PAP SMEAR 1960 HIV SCREENING 1975 HEPATITIS C SCREENING 12/05/1978 DTAP/TDAP/TD VACCINES (1 - Tdap) 1979 PNEUMOCOCCAL VACCINE 50+ (1 of 1 - PCV) 2010 ZOSTER VACCINE (1 of 2) 2010 SCREENING FOR DIABETES 08/16/2019 COVID-19 VACCINE (1 - 2023-2 5 season) 2024 INFLUENZA VACCINE (#1) 2024 DEPRESSION SCREENING 10/31/2024 Respiratory Syncytial Virus (RSV) Vaccine Pt: or over 60 yrs (1 - 1-dose 75+ series) 2035 HEPATITIS B VACCINE Aged Out No longe r eligible based on patient's age to complete this topic HIB VACCINE Aged Out No longer eligi ble based on patient's age to complete this topic HPV VACCINE Aged Out No longer eligi ble based on patient's age to complete this topic MENINGOCOCCAL (Group B) VACC INE SHARED DECISION-MAKING Aged Out No longer eligibl e based on patient's age to complete this topic MENINGOCOCCAL GROUPS A/C/Y/W VACCINE Aged Out No longer eligible b ased on patient's age to complete this topic PNEUMOCOCCAL VACCINE Aged Out No long er eligible based on patient's age to complete this topic Care Teams Bacteriologist Food Relationship Specialty Start Date End Date Víctor Thompson MD [address] [place] [address] PCP - General 10/29/19
--- OUTSIDE RECORDS SUMMARY | 2025-01-09 17:59 | XMS_ITS | Encounter Summary ---
Author Organization [facility] [facility] Address 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
--- OUTSIDE RECORDS SUMMARY | 2025-01-09 17:59 | XMS_ITS | Encounter Summary ---
Author Organization [facility] Address 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
--- OUTSIDE RECORDS SUMMARY | 2025-01-09 17:59 | XMS_ITS | Encounter Summary ---
Author Organization [employer] Address [address] [place] [address] Care Team Providers Care Ic Designer Standard Cells Name Role Phone Misael Ferraro MD Primary Care Provider Unavailab le Encounter Details Date Type Department Care Team (Latest Contact Info) Description [facility]/02[facility] Cough (Primary Dx) Social History Tobacco Use Types Packs/Day Years Used Date Smoking Tobacco: Never Assessed Comments Unknown Sex and Gender Information Value Date Recorded Sex Assigned at Not on file Legal Sex Female 2:55 AM STRUCTURER Gender Identity Not on file Sexual Orientation Not on file documented as of this encounter Plan of Treatment Not on file documented as of this encounter Visit Diagnoses Diagnosis Cough- Primary documented in this encounter Care Teams Ic Designer Standard Cells Relationship Specialty Start Date End Date Misael Ferraro MD PCP - General Family Practice 09/29/12 documented as of this encounter
--- OUTSIDE RECORDS SUMMARY | 2025-01-09 17:59 | XMS_ITS | Encounter Summary ---
Author Organization [facility] Address 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
--- OUTSIDE RECORDS SUMMARY | 2025-01-09 17:59 | XMS_ITS | Encounter Summary ---
Author Organization [facility] Address [address] [place] [address] Care Team Providers Care Restaurant Host/Hostess Name Role Phone Misael Ferraro MD Primary Care Provider Unavailab le Encounter Details Date Type Department Care Team (Late st Contact Info) Description 07/16/1999 Outpatient [facility] Primary Care [address] [place] [address] Thee Aly, DO NO ADDRESS ON FILE Social History Tobacco Use Types Packs/Day Years Used Date Smoking Tobacco: Never Assessed Comments Unknown Sex and Gender Information Value Date Recorded Sex Assigned at Not on file Legal Sex Female 2:55 AM RECREATION LEADER Gender Identity Not on file Sexual Orientation Not on file documented as of this encounter Plan of Treatment Not on file documented as of this encounter Visit Diagnoses Not on filedocumented in this encounter Care Teams Restaurant Host/Hostess Relationship Specialty Start Date End Date Misael Ferraro MD PCP - General Family Practice 09/29/12 documented as of this encounter
--- OUTSIDE RECORDS SUMMARY | 2025-01-09 17:59 | XMS_ITS | Referral Summary ---
Author Organization [facility] Address [address] [place] [id number] Care Team Providers Care Investment Analyst Name Role Phone Víctor Thompson MD Primary Care Provider [phone] Source Comments [facility],non-owned Affiliates and Associated Physician Practices is amultiple site organization consisting of ambulatory clinics and hospital sitesin [place], [place], [place] and [place]. This disclosure is being madepursuant to the Care Everywhere program and may not contain all information available regarding this patient. Last updated 18.[facility] Allergies Active Allergy Reactions Criticality Noted Date [...] 08/16/2019 9:32 AM CDT Plan of Treatment Not on file Care Teams Investment Analyst Relationship Specialty Start Date End Date Víctor Thompson MD [address] [place] [address] PCP - General 10/29/19
--- OUTSIDE RECORDS SUMMARY | 2025-01-09 17:59 | XMS_ITS | Encounter Summary ---
Author Organization [facility] Address 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
--- OUTSIDE RECORDS SUMMARY | 2025-01-09 17:59 | XMS_ITS | Encounter Summary ---
Author Organization [facility] Address [address] [place] [address] Care Team Providers Care Heater Helper Name Role Phone Misael Ferraro MD Primary Care Provider Unavailab le Encounter Details Date Type Department Care Team (Late st Contact Info) Description 02/06/1999 Outpatient [facility] Primary Care - [address] [place] [address] Thee Aly, DO NO ADDRESS ON FILE Social History Tobacco Use Types Packs/Day Years Used Date Smoking Tobacco: Never Assessed Comments Unknown Sex and Gender Information Value Date Recorded Sex Assigned at Not on file Legal Sex Female 2:55 AM LANGUAGE TUTOR Gender Identity Not on file Sexual Orientation Not on file documented as of this encounter Plan of Treatment Not on file documented as of this encounter Visit Diagnoses Not on filedocumented in this encounter Care Teams Heater Helper Relationship Specialty Start Date End Date Misael Ferraro MD PCP - General Family Practice 09/29/12 documented as of this encounter
--- OUTSIDE RECORDS SUMMARY | 2025-01-09 17:59 | XMS_ITS | Continuity of Care Document ---
Author Organization [facility] Address [address] [place] [address] [address] [place] [address] Phone Care Team Providers Care Assurance Analyst Name Role Phone Lara PT,MPT,ATC, David Unavailable Unavai lable Procedures Procedure Date THERAPEUTIC EXERCISES NEUROMUSCULAR RE-ED FUNC ACTIVITY THERAPEUTIC EXERCISES NEUROMUSCULAR RE-ED FUNC ACTIVITY THERAPEUTIC EXERCISES NEUROMUSCULAR RE-ED FUNC ACTIVITY THERAPEUTIC EXERCISES NEUROMUSCULAR RE-ED FUNC ACTIVITY THERAPEUTIC EXERCISES NEUROMUSCULAR RE-ED FUNC ACTIVITY THERAPEUTIC EXERCISES NEUROMUSCULAR RE-ED FUNC ACTIVITY THERAPEUTIC EXERCISES NEUROMUSCULAR RE-ED FUNC ACTIVITY THERAPEUTIC EXERCISES NEUROMUSCULAR RE-ED FUNC ACTIVITY THERAPEUTIC EXERCISES NEUROMUSCULAR RE-ED MANUAL THERAPY FUNC ACTIVITY THERAPEUTIC EXERCISES NEUROMUSCULAR RE-ED FUNC ACTIVITY THERAPEUTIC EXERCISES NEUROMUSCULAR RE-ED FUNC ACTIVITY THERAPEUTIC EXERCISES NEUROMUSCULAR RE-ED THERAPEUTIC EXERCISES NEUROMUSCULAR RE-ED THERAPEUTIC EXERCISES NEUROMUSCULAR RE-ED THERAPEUTIC EXERCISES MANUAL THERAPY FUNC ACTIVITY THERAPEUTIC EXERCISES MANUAL THERAPY FUNC ACTIVITY THERAPEUTIC EXERCISES NEUROMUSCULAR RE-ED MANUAL THERAPY FUNC ACTIVITY PT EVALUATION THERAPEUTIC EXERCISES PT EVALUATION THERAPEUTIC EXERCISES Screen THERAPEUTIC EXERCISES NEUROMUSCULAR RE-ED MANUAL THERAPY FUNC ACTIVITY HOT/COLD PACK PT RE-EVALUATION THERAPEUTIC EXERCISES NEUROMUSCULAR RE-ED MANUAL THERAPY FUNC ACTIVITY THERAPEUTIC EXERCISES NEUROMUSCULAR RE-ED MANUAL THERAPY FUNC ACTIVITY HOT/COLD PACK THERAPEUTIC EXERCISES NEUROMUSCULAR RE-ED MANUAL THERAPY FUNC ACTIVITY HOT/COLD PACK THERAPEUTIC EXERCISES NEUROMUSCULAR RE-ED MANUAL THERAPY FUNC ACTIVITY HOT/COLD PACK THERAPEUTIC EXERCISES NEUROMUSCULAR RE-ED MANUAL THERAPY FUNC ACTIVITY HOT/COLD PACK THERAPEUTIC EXERCISES NEUROMUSCULAR RE-ED MANUAL THERAPY FUNC ACTIVITY HOT/COLD PACK THERAPEUTIC EXERCISES NEUROMUSCULAR RE-ED MANUAL THERAPY FUNC ACTIVITY PT RE-EVALUATION THERAPEUTIC EXERCISES NEUROMUSCULAR RE-ED MANUAL THERAPY FUNC ACTIVITY THERAPEUTIC EXERCISES NEUROMUSCULAR RE-ED MANUAL THERAPY FUNC ACTIVITY HOT/COLD PACK THERAPEUTIC EXERCISES NEUROMUSCULAR RE-ED MANUAL THERAPY FUNC ACTIVITY HOT/COLD PACK THERAPEUTIC EXERCISES NEUROMUSCULAR RE-ED MANUAL THERAPY FUNC ACTIVITY HOT/COLD PACK THERAPEUTIC EXERCISES NEUROMUSCULAR RE-ED MANUAL THERAPY FUNC ACTIVITY HOT/COLD PACK THERAPEUTIC EXERCISES NEUROMUSCULAR RE-ED MANUAL THERAPY FUNC ACTIVITY HOT/COLD PACK THERAPEUTIC EXERCISES NEUROMUSCULAR RE-ED MANUAL THERAPY FUNC ACTIVITY THERAPEUTIC EXERCISES NEUROMUSCULAR RE-ED MANUAL THERAPY FUNC ACTIVITY THERAPEUTIC EXERCISES NEUROMUSCULAR RE-ED MANUAL THERAPY FUNC ACTIVITY PT RE-EVALUATION THERAPEUTIC EXERCISES NEUROMUSCULAR RE-ED MANUAL THERAPY FUNC ACTIVITY HOT/COLD PACK ELECTRIC STIMULATION UNATT THERAPEUTIC EXERCISES NEUROMUSCULAR RE-ED MANUAL THERAPY FUNC ACTIVITY HOT/COLD PACK ELECTRIC STIMULATION UNATT THERAPEUTIC EXERCISES NEUROMUSCULAR RE-ED MANUAL THERAPY FUNC ACTIVITY HOT/COLD PACK ELECTRIC STIMULATION UNATT THERAPEUTIC EXERCISES NEUROMUSCULAR RE-ED MANUAL THERAPY FUNC ACTIVITY HOT/COLD PACK ELECTRIC STIMULATION UNA THERAPEUTIC EXERCISES NEUROMUSCULAR RE-ED MANUAL THERAPY FUNC ACTIVITY HOT/COLD PACK ELECTRIC STIMULATION UNA THERAPEUTIC EXERCISES NEUROMUSCULAR RE-ED MANUAL THERAPY FUNC ACTIVITY HOT/COLD PACK ELECTRIC STIMULATION UNA THERAPEUTIC EXERCISES NEUROMUSCULAR RE-ED MANUAL THERAPY FUNC ACTIVITY HOT/COLD PACK ELECTRIC STIMULATION UNA THERAPEUTIC EXERCISES NEUROMUSCULAR RE-ED MANUAL THERAPY FUNC ACTIVITY HOT/COLD PACK ELECTRIC STIMULATION UNA THERAPEUTIC EXERCISES NEUROMUSCULAR RE-ED MANUAL THERAPY FUNC ACTIVITY HOT/COLD PACK ELECTRIC STIMULATION UNA THERAPEUTIC EXERCISES NEUROMUSCULAR RE-ED MANUAL THERAPY FUNC ACTIVITY HOT/COLD PACK ELECTRIC STIMULATION UNA THERAPEUTIC EXERCISES NEUROMUSCULAR RE-ED MANUAL THERAPY FUNC ACTIVITY HOT/COLD PACK ELECTRIC STIMULATION UNA THERAPEUTIC EXERCISES NEUROMUSCULAR RE-ED MANUAL THERAPY FUNC ACTIVITY HOT/COLD PACK ELECTRIC STIMULATION UNA THERAPEUTIC EXERCISES MANUAL THERAPY HOT/COLD PACK ELECTRIC STIMULATION UNA PT EVALUATION THERAPEUTIC EXERCISES HOT/COLD PACK ELECTRIC STIMULATION UNA Advance Directives Directive Yes / No Effective Date File Name No Information Encounters Encounter Description Practice Location Reason(s) For Visit Diagnoses Date Provider Providers Copied on Encounter [facility], [address], [place], [place], [id number], [place] tel:[phone] [place] No Information Dec-0 6-201 6 [facility] , [place] [place]. Referring Provider: Erlin Kc, [facility] [address] [place] [address] [address], [place], [facility]. tel:[phone] [facility] [address], [place], [place], [address], [place] tel:[phone] [place] No Information Nov-3 0-201 6 [facility] , [place], [place]. Referring Provider: Erlin Kc, [facility] [address] [place] [address] [address], [place], [facility]. tel:[phone] [facility] [address], [place], [place], [id number], [place] tel:[phone] [place] No Information Nov-1 8-201 6 [facility] , [place], [place]. Referring Provider: Erlin Kc, [facility] [address] [place] [address] [address], [place], [facility]. tel:[phone] [facility] [address], [place], [place], [address], [place] tel:[phone] [place] No Information Nov-0 9-201 6 [facility] Referring Provider: Erlin Kc, [facility] [address] [place] [address] [address], [place], [facility]. tel:[phone] [facility] [address], [place], [place], [address], [place] tel:[phone] [place] No Information Nov-0 2-201 6 [facility] Referring Provider: Erlin Kc, [facility] [address] [place] [address] [address], [place], [facility]. tel:[phone] [facility] [address], [place], [place], [address], [place] tel:[phone] [place] No Information Jul-2 6 6 [place]. Referring Provider: Erlin Kc, [facility] [address] [place] [address] [address], [place], [facility]. tel:[phone] [facility] [address], [place], [place], [id number], [place] tel:[phone] [place] No Information Jul-1 9 6 [place]. Referring Provider: Erlin Kc, [facility] [address] [place] [address] [address], [place], [facility]. tel:[phone] [facility] [address] [place], [place] [address], [place], [place], [id number], tel:[phone] [place] No Information 6 [place]. Referring Provider: Erlin Kc, [facility] [address] [place] [address] [address], [place], [facility]. tel:[phone] [facility] [address] [place], [place] [address], [place], [place], [id number], [place] tel:[phone] [place] No Information Jul-0 6 Haley Lutz. [address] [place] [address], [address], [facility], . tel:[phone] Referring Provider: Erlin cK, [facility] [address] [place] [address] [address], [place], [facility]. tel:[phone] [facility] [address] [place], [place] [address], [place], [place], [id number], [place] tel:[phone] [place] No Information Jul-3 0- 6 [place]. Referring Provider: Erlin Kc, [facility] [address] [place] [address] [address], [place], [facility]. tel:[phone] [facility], [address], [place], [place], [address], [place] tel:[phone] [place] No Information Sep-2 6 [facility] Referring Provider: Erlin Kc, [facility] [address] [place] [address] [address], [place], [facility]. tel:[phone] [facility] [address], [place], [place], [address], [place] tel:[phone] [place] No Information Sep-1 6 [facility] Referring Provider: Erlin Kc, [facility] [address] [place] [address] [address], [place], [facility]. tel:[phone] [facility] [address] [place], [place] [address], [place], [place], [address], [place] tel:[phone] [place] No Information Sep-1 6 [place]. Referring Provider: Erlin Kc, [facility] [address] [place] [address] [address], [place], [facility]. tel:[phone] [facility] [address], [place], [place], [address], [place] tel:[phone] [place] No Information Sep-1 6 [place] Referring Provider: Erlin Kc, [facility] [address] [place] [address] [address], [place], [facility]. tel:[phone] [facility] [address], [place], [place], [address], [place] tel:[phone] [place] No Information Sep-0 6 [facility] Referring Provider: Erlin Kc, [facility] [address] [place] [address] [address], [place], [facility]. tel:[phone] [facility], [address] [facility] [place], [place], [id number], [place] tel:[phone] [place] No Information 6 [place]. Referring Provider: Erlin Kc, [facility] [address] [place] [address] [address], [place], [facility]. tel:[phone] [facility] [address], [id number], [place] tel:[phone] [place] No Information 6 [place]. Referring Provider: Erlin Kc, [facility] [address] [place] [address] [address], [place], [facility]. tel:[phone] [facility] [address], [id number], [place] tel:[phone] [place] Muscle wasting and atrophy, NEC, left thigh 6 [place]. Referring Provider: Erlin Kc, [facility] [address] [place] [address] [address], [place], [facility]. tel:[phone] [place] [address], [id number], [place] tel:[phone] [place] Oth symptoms and signs involving the musculoskeleta l systemMuscle weakness (generalized) 6 Nahum Sophia. [address] [place] [address], [address], [facility], [place]. tel:[phone] Referring Provider: Erlin Kc, [facility] [address] [place] [address] [address], [place], [facility]. tel:[phone] [place], [place] [address] [address], [id number], [place] tel:[phone] [place] Pain, unspecified 0 6 [place]. Referring Provider: [facility], [facility] [address], [place], [place], [address], [place] tel:[phone] Moore No Information Sep- 5 Haley Lutz. [address] [facility], [address], [place], [place], [facility], . tel: [phone] Referring Provider: Erlin Kc, [facility] [address] [place] [address] [address], [place], [facility]. tel:[phone] [place], [place] [address], [place], [place], [address], tel:[phone] Moore No Information Sep- 5 [place]. Referring Provider: Erlin Kc, [facility] [address] [place] [address] [address], [place], [facility]. tel:[phone] [place], [place] [address], [place], [place], [id number], [place] tel:[phone] Moore No Information 5 Haley Lutz. [address] [place] [address], [address], [facility], [place]. tel: [phone] Referring Provider: Erlin Kc, [facility] [address] [place] [address] [address], [place], [facility]. tel:[phone] [place], [place] [address], [place], [place], [address], [place] tel:[phone] Moore No Information Dec-0 5 Haley Lutz. [address] [place] [address], [address], [facility], . tel: [phone] Referring Provider: Erlin Kc, [facility] [address] [place] [address] [address], [place], [facility]. tel:[phone] [place] [address], [place], [address], tel:[phone] Moore No Information 5 Haley Lutz. [address] [facility], [address], [place], [facility], . tel:[phone] Referring Provider: Erlin Kc, [facility] [address] [place] [address] [address], [place], [facility]. tel:[phone] [place], [place] [address], [place], [address], tel:[phone] Moore No Information 0 5 Haley Lutz. [address] [facility], [address], [place], [facility], . tel:[phone] Referring Provider: Erlin Kc, [facility] [address] [place] [address] [address], [place], [facility]. tel:[phone] [place] [address], [place], [address], tel:[phone] Moore No Information 5 Haley Lutz. [address] [place] [address], [address], [place], [facility], . tel:[phone] Referring Provider: Erlin Kc, [facility] [address] [place] [address] [address], [place], [facility]. tel:[phone] [place], [place] [address], [place], [address], [place] tel:[phone] [place] No Information [place], [place]. Referring Provider: Erlin Kc, [facility] [address] [place] [address] [address], [place], [facility]. tel:[phone] [place], [place] [address], [place], [place], [address], tel:[phone] [place] No Information [facility] , [place], [place]. Referring Provider: Erlin Kc, [facility] [address] [place] [address] [address], [place], [address]. tel:[phone] [place] [address], [id number], tel:[phone] Moore No Information 3-201 5 Haley Lutz. [address] [place] [address], [address], [facility], . tel:[phone] Referring Provider: Erlin Kc, [facility] [address] [place] [address] [address], [place], [address]. tel:[phone], [id number], tel:[phone] Moore No Information 0-201 5 Haley Lutz. [address] [place] [address], [address], [facility], . tel:[phone] Referring Provider: Erlin Kc, [facility] [address] [place] [address] [address], [place], [address]. tel:[phone], [id number], tel:[phone] Moore No Information 8 5 Haley Lutz. [address] [place] [address], [address], [facility], . tel:[phone] Referring Provider: Erlin Kc, [facility] [address] [place] [address] [address], [place], [address]. tel:[phone], [id number], tel:[phone] Moore No Information 6 5 Haley Lutz. [address] [place] [address], [address], [facility], . tel:[phone] Referring Provider: Erlin Kc, [facility] [address] [place] [address] [address], [place], [address]. tel:[phone], [id number], tel:[phone] Moore No Information 3-201 5 Haley Lutz. [address] [place] [address], [address], [facility], . tel:[phone] Referring Provider: Erlin Kc, [facility] [address] [place] [address] [address], [place], [address]. tel:[phone], [id number], tel:[phone] Moore No Information 5 Haley Lutz. [address] [place] [address], [address], [facility], . tel:[phone] Referring Provider: Erlin Kc, [facility] [address] [place] [address] [address] [place] [address], [address]. tel:[phone], [id number], tel:[phone] Moore No Information 0-201 5 Haley Lutz. [address] [place] [address], [address], [facility], [place]. tel:[phone] Referring Provider: Erlin Kc, [facility] [address] [place] [address] [address], [place], [address]. tel:[phone], [id number], tel:[phone] Moore No Information 0 6-201 5 Mich Haji. [address] [place] [address], [address], [facility], . tel:[phone] Referring Provider: Erlin Kc, [facility] [address] [place] [address] [address], [place], [address]. tel:[phone] [address], [place], [address], tel:[phone] Moore No Information 0 3-201 5 Mich Raissa. [address] [place] [address], [address], [facility], . tel:[phone] Referring Provider: Erlin Kc, [facility] [address] [place] [address] [address], [place], [address]. tel:[phone] [address] [place] [address], [id number], [place] tel:[phone] Moore No Information 3 0-201 5 Mich Raissa. [address] [place] [address], [address], [facility], [place]. tel:[phone] Referring Provider: Erlin Kc, [facility] [address] [place] [address] [address], [place], [address]. tel:[phone] [place] [address], [id number], [place] tel:[phone] Moore No Information 2 8-201 5 Mich Raissa. [address] [place] [address], [address], [facility], [place]. tel:[phone] Referring Provider: Erlin Kc, [facility] [address] [place] [address] [address], [place], [address]. tel:[phone] [address], [id number], [place] tel:[phone] Moore No Information 9-201 5 Mich Raissa. [address] [place] [address], [address], [facility], . tel:[phone] Referring Provider: Erlin Kc, [facility] [address] [place] [address] [address], [place], [address]. tel:[phone] [address], [place], [id number], [place] tel:[phone] Moore No Information 6-201 5 Mich Raissa. [address] [place] [address], [address], [place], [facility], [place]. tel:[phone] Referring Provider: Erlin Kc, [facility] [address] [place] [address] [address], [place], [address]. tel:[phone] [facility], [place], [place], [id number], [place] tel:[phone] Moore No Information 5-201 5 Mich Raissa. [address] [place] [address], [address], [facility], [place]. tel:[phone] Referring Provider: Erlin Kc, [facility] [address] [place] [address] [address], [place], [address]. tel:[phone] [address], [place], [place], [address], [place] tel:[phone] Moore No Information 2-201 5 Mich Raissa. [address] [place] [address], [address], [facility], [place]. tel:[phone] Referring Provider: Erlin Kc, [facility] [address] [place] [address] [address], [place], [address]. [phone], [place], [id number], [place] tel:[phone] Moore No Information 9-201 5 Mich Raissa. [address] [place] [address], [address], [place], [facility], [place]. tel:[phone] Referring Provider: Erlin Kc, [facility] [address] [place] [address] [address], [place], [address]. tel:[phone] [place] [address], [id number], tel:[phone] Moore No Information Jul-0 7-201 5 Mich Raissa. [address] [place] [address], [address], [facility], . tel:[phone] Referring Provider: Erlin Kc, [facility] [address] [place] [address] [address], [place], [facility]. tel:[phone] [place] [address], [id number], tel:[phone] Moore No Information Jul-0 6-201 5 Mich Raissa. [address] [place] [address], [address], [place], [facility], [place]. tel:[phone] Referring Provider: Erlin Kc, [facility] [address] [place] [address] [address], [place], [place], [facility]. tel:[phone] [place] [address] [place] [address], [id number], [place] tel:[phone] Moore Pain in left kneeStiffness of left knee, not elsewhere classifiedWeak nessUnilateral primary osteoarthritis , left kneeDispl bicondylar fx l tibia, subs for clos fx w routn heal Jul-0 2-201 5 Mich Raissa. [address] [place] [address], [address], [place], [facility], [place]. [phone] Referring Provider: Erlin Kc, [facility] [address] [place] [address] [address], [place], [place], [facility]. tel:[phone] [place] [address], [address] [place] [address], [place], [place], [id number], [place] tel:[phone] Moore No Information Jul-3 0-201 5 Mich Raissa. [address] [place] [address], [address], [place], [facility], . [phone] Referring Provider: Erlin Kc, [facility] [address] [place] [address] [place] [address], [facility]. tel:[phone], [place], [id number], tel:[phone] Moore No Information Sep-2 8201 5 Mich Haji. [address] [place] [address], [facility] [address] [address], . tel:[phone] Referring Provider: Erlin Kc, [facility] [address] [place] [address], [facility]. tel:[phone], [place], [id number], tel:[phone] Moore Pain in joint involving lower legClosed fracture of upper end of tibia Sep-2 3201 5 Mich Haji. [address] [place] [address], [address], [place], [facility], . [phone] Referring Provider: Erlin Kc, [facility] [address] [place] [address], [facility]. tel:[phone] Family History Family Member Type Diagnosis Age At Onset No Information Payers Payer name Insurance type Covered democrat ID Josefa loya(s) [employer] CI [id number] Social History Type Description Quantity Date Captured Comments Sex Female Smoking Status No Information Chief Complaint And Reason For Visit No Information Reason For Referral Reason For Referral No Information History Of Present Illness Encounter Date Complaint History Of Prese nt Illness No Information Functional Status Date Functional Assessmen t No Information Instructions Date Instruction Additional Infor mation No Information Assessments Type Assessment Date No Information Patient Care Teams Name Effective Dates (start - stop) Status Members No Information
--- OUTSIDE RECORDS SUMMARY | 2025-01-09 17:59 | XMS_ITS | Clinical Summary ---
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 Pulse - - Temperature - - Respiratory Rate - - Oxygen Saturation - - Inhaled Oxygen Concentration - - Weight 77.1 kg (170 lb) 11/29/2013 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 Height 167.6 cm (5' 6 ) 11/29/2013 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 Body Mass Index 27.44 11/29/2013 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 Plan of Treatment Health Maintenance Due Date Last Done Comments Cervical Cancer Screening Pa p Smear (Age 30 to 64) Every 3 Years 1960 Colorectal Cancer Screening Colonoscopy (10 Years) 1960 Annual Physical 1963 Hepatitis C 1978 DTaP, Tdap and Td Vaccines ( 1 - Tdap) 1979 Cervical Cancer Screening Pa p with HPV Testing (Age 30 to 64) Every 5 Years 1990 Cervical Cancer Screening with HPV 1990 Mammogram Screening 2000 Zoster Vaccines (1 of 2) 2010 COVID-19 Vaccine ( - 2023-2 5 season) 2024 Influenza Adult (#1) 2024 RSV Immunization or 60+ Years (1 - 1-dose 75+ series) 2035 Meningococcal B Vaccine Aged Out No l onger eligible based on patient's age to complete this topic Meningococcal Vaccine Aged Out No red rory eligible based on patient's age to complete this topic Pneumococcal Vaccine: Pediat rics (0 to 5 Years) and At-Risk Patients (6 to 64 Years) Aged Out No longer eligible b ased on patient's age to complete this topic RSV Immunizations Under 20 Months Aged Out No longer eligible based on patient's age to complete this topic
--- OUTSIDE RECORDS SUMMARY | 2025-01-09 17:59 | XMS_ITS | Encounter Summary ---
Author Organization [employer] Address 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
--- OUTSIDE RECORDS SUMMARY | 2025-01-09 17:59 | XMS_ITS | Patient Health Summary ---
Author Organization [facility] Address [address] [place] [id number] Care Team Providers Care Manager Strategy & Account Name Role Phone Víctor Thompson MD Primary Care Provider [phone] Note from [facility],non-owned Affiliates and Associated Physician Practices is amultiple site organization consisting of ambulatory clinics and hospital sitesin [place], [place], [place] and [place]. This disclosure is being madepursuant to the Care Everywhere program and may not contain all information available regarding this patient. Last updated 18.[facility] Allergies * Codeine(Unknown) * Latex(Unknown) Medications * Be aware that medications may not be up to date on this document. Alwaysverify current medications with the patient. * albuterol HFA (PROVENTIL;VENTOLIN;PROAIR) 108 (90 Base) MCG/ACT inhaler (Started 04/26/2019) Inhale 2 puffs by mouth every 4 hours as needed 6 refills left * benzonatate (TESSALON) 100 MG capsule(Started 05/26/2019) TAKE 1 CAPSULE BY MOUTH EVERY 8 HOURS NEEDED FOR COUGH FOR 7 DAYS * diazePAM (VALIUM) 5 MG tablet(Started 06/27/2019) TAKE 1 TABLET BY MOUTH THREE TIMES A DAY NEEDED 5 refills left * TRELEGY ELLIPTA 100-62.5-25 MCG/INH(Started 05/16/2019) INHALE 1 PUFF BY MOUTH ONCE A DAY RINSE MOUTH AFTER USE 6 refills left * gabapentin (NEURONTIN) 100 MG capsule(Started 07/24/2019) TAKE 2 CAPSULES BY MOUTH IN THE MORNING, 1 CAPSULE IN THE AFTERNOON AND 2 IN THE EVENING 3 refills left * Nebulizers (VIOS AEROSOL DELIVERY SYSTEM) MISC(Started 05/26/2019) USE 6 TIMES DAILY UTD PRN * topiramate (TOPAMAX) 200 MG tablet(Started 07/20/2019) Take 200 mg by mouth 2 times daily 5 refills left Social History Tobacco Use Types Packs/Day Years [...] Mass Index 25.58 08/16/2019 9:32 AM CDT Procedures * DERMATOPATHOLOGY(Performed 08/20/2016) Results * PATHOLOGY TISSUE FOR DERMATOLOGY (08/20/2016 12:00 AM CDT) Result CASE: [id number] PATIENT: TAMRA ARMIJO PATHOLOGIC DIAGNOSIS: 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 GROSS DESCRIPTION: Received is one formalin filled container labeled with the patients name and designated left lower cheek of TMJ. The specimen consists of a shave biopsy measuring [id number]. Jar 0. MICROSCOPIC DESCRIPTION: Sections show an acanthotic lesion composed of relatively uniform keratinocytes. There is hyperkeratosis and pseudo horn cysts formation. Electronically signed out by Christy Junior M.D. 08/24/2016 2:02:02PM [facility] Comment: Performed at: Dermatopathology Laboratory [facility] - Department of Dermatology [address] [place] [address], [address]th [place] [address] Phone number: [phone] FAX: [phone] 08/20/2016 08/23/2016 Historical Provider MD LAB - PATHOLOGY/C YTOLOGY ORDERABLES [facility] [address] [place] [address]. 5th Floor Lab [address] [phone] Care Teams Manager Strategy & Account Relationship Specialty Start Date End Date Víctor Thompson MD [address] [place] [address] PCP - General 10/29/19
--- OUTSIDE RECORDS SUMMARY | 2025-01-09 17:59 | XMS_ITS | Encounter Summary ---
Author Organization [facility] Address [address] [place] [address] Care Team Providers Care Sap Data Analyst Name Role Phone Misael Ferraro MD Primary Care Provider Unavailab le Encounter Details Date Type Department Care Team (Late st Contact Info) Description 07/12/[address] [facility] Primary Care [address] [place] [address] Thee Aly, DO NO ADDRESS ON FILE Social History Tobacco Use Types Packs/Day Years Used Date Smoking Tobacco: Never Assessed Comments Unknown Sex and Gender Information Value Date Recorded Sex Assigned at Not on file Legal Sex Female 2:55 AM E COMMERCE STRATEGIST Gender Identity Not on file Sexual Orientation Not on file documented as of this encounter Plan of Treatment Not on file documented as of this encounter Visit Diagnoses Not on filedocumented in this encounter Care Teams Sap Data Analyst Relationship Specialty Start Date End Date Misael Ferraro MD PCP - General Family Practice 09/29/12 documented as of this encounter
--- OUTSIDE RECORDS SUMMARY | 2025-01-09 17:59 | XMS_ITS | Encounter Summary ---
Author Organization [facility] Address [address] [place] [address] Care Team Providers Care Medical Device Assembler Name Role Phone Misael Ferraro MD Primary Care Provider Unavailab le Encounter Details Date Type Department Care Team (Late st Contact Info) Description 12/21/2002 Outpatient [facility] Primary Care [address] [place] [address] Thee Aly, DO NO ADDRESS ON FILE Social History Tobacco Use Types Packs/Day Years Used Date Smoking Tobacco: Never Assessed Comments Unknown Sex and Gender Information Value Date Recorded Sex Assigned at Not on file Legal Sex Female 2:55 AM WORKFORCE MANAGEMENT MANAGER Gender Identity Not on file Sexual Orientation Not on file documented as of this encounter Plan of Treatment Not on file documented as of this encounter Visit Diagnoses Not on filedocumented in this encounter Care Teams Medical Device Assembler Relationship Specialty Start Date End Date Misael Ferraro MD PCP - General Family Practice 09/29/12 documented as of this encounter
[2025-01-11 02:44] LABS: Vitamin D 25 Hydroxy 39 ng/mL (30-100)
[2025-01-13 07:18] LABS: Parathyroid Intact 78 pg/mL (16-77)
== END 2025-01-09 17:00 | disposition home or self-care (01) ==
PROVIDERS: PCP Family Medicine; Visit Provider Nurse Practitioner Family
DX: Z00.00 Encounter for general adult medical examination without abnormal findings (principal); E55.9 Vitamin D deficiency, unspecified; D72.829 Elevated white blood cell count, unspecified
CPT/HCPCS: 36415; 80053; 80061; 82306; 83036; 83970; 84439; 84443; 85025

== ENCOUNTER 2025-03-02 15:44 | Outpatient (CLI) | payer OTHER, SELFPAY ==
--- OUTSIDE RECORDS SUMMARY | 2025-03-02 16:43 | XMS_ITS | Encounter Summary ---
Author Organization [facility] Address 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
--- OUTSIDE RECORDS SUMMARY | 2025-03-02 16:43 | XMS_ITS | Encounter Summary ---
Author Organization [facility] Address [address] [place] [address] Care Team Providers Care Electric Golf Cart Repairers Name Role Phone Misael Ferraro MD Primary Care Provider Unavailab le Encounter Details Date Type Department Care Team (Late st Contact Info) Description 03/06/1999 Outpatient [facility] Primary Care - [address] [place] [address] Thee Aly, DO NO ADDRESS ON FILE Social History Tobacco Use Types Packs/Day Years Used Date Smoking Tobacco: Never Assessed Comments Unknown Sex and Gender Information Value Date Recorded Sex Assigned at Not on file Legal Sex Female 2:55 AM MARINE 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
--- OUTSIDE RECORDS SUMMARY | 2025-03-02 16:43 | XMS_ITS | Encounter Summary ---
Author Organization [facility] Address [address] [place] [address] Care Team Providers Care Celery Packer Name Role Phone Misael Ferraro MD Primary Care Provider Unavailab le Encounter Details Date Type Department Care Team (Late st Contact Info) Description 11/13/2004 Outpatient Historical [facility] MAT CLEANING MACHINE OPERATOR - [address] [address] Booker Morrell MD [address] [place] [address] Social History Tobacco Use Types Packs/Day Years Used Date Smoking Tobacco: Never Assessed Comments Unknown Sex and Gender Information Value Date Recorded Sex Assigned at Not on file Legal Sex Female 2:55 AM WEATHERIZATION ADMINISTRATOR Gender Identity Not on file Sexual Orientation Not on file documented as of this encounter Plan of Treatment Not on file documented as of this encounter Visit Diagnoses Not on filedocumented in this encounter Care Teams Celery Packer Relationship Specialty Start Date End Date Misael Ferraro MD PCP - General Family Practice 09/29/12 documented as of this encounter
--- OUTSIDE RECORDS SUMMARY | 2025-03-02 16:43 | XMS_ITS | Encounter Summary ---
Author Organization [facility] Address 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
--- OUTSIDE RECORDS SUMMARY | 2025-03-02 16:43 | XMS_ITS | Encounter Summary ---
Author Organization [facility] Address [facility] [place] [address] Care Team Providers Care Academic Coach Name Role Phone Unavailable Primary Care Provider Unavailabl e Encounter Details Date Type Department Care Team (Latest Contact Info) Description 09/05/2018 Abstract [facility] , Generic Conversion, [...]
--- OUTSIDE RECORDS SUMMARY | 2025-03-02 16:43 | XMS_ITS | Clinical Summary ---
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 The mild change in the neck [...] (03/01/2022): Added automatically from request for surgery [id number] History of kidney stones 02/10/2022 Bilateral flank pain 02/10/2022 Nephrolithiasis 01/04/2022 Vitamin D deficiency 01/04/2022 Paradoxical vocal fold motion disorder 9 Assessment & Plan (08/28/2019 1:49 PM CDT): I have recommended laryngeal control therapy here at the [facility] in order [...] on file Legal Sex Female 2:40 AM FLYING I INSTRUCTOR Gender Identity Not on file Sexual Orientation Not on file Obstetrics History Last Filed Vital Signs Vital Sign Reading Time Taken Comments Blood Pressure 114/87 02/09/2023 8:08 AM CDT Pulse 74 02/09/2023 8:08 AM CDT Temperature 37 C (98.6 F) 10/13/2022 1:26 PM FLYING I INSTRUCTOR Respiratory Rate 18 09/14/2022 4:58 PM FLYING I INSTRUCTOR Oxygen Saturation 100% 09/14/2022 11:50 PM FLYING I INSTRUCTOR Inhaled Oxygen Concentration - - Weight 64.9 [...] this topic Medical Devices Explanted Type Area Javascript Ui Developer Device Identifier Shelf Expiration Date Model / Serial / Lot [employer] Universa 6fr 26cm Radiopaque Positioner Monofilament Tether 2 [id number] - [id number] Implanted:Qty: 1 on 03/16/2022 by Manav Iqbal MD at [facility] Explanted:Qty: 1 on 03/31/2022 by Manav Iqbal MD Left: Ureter [employer] 01/20/2025 [id number] / / [id number] [employer] Jagruti Contour 6fr 24cm Large Inner Lumen Low Profile Bladder Jori Taper Latex Free 180-222 - [id number] Implanted:Qty: 1 on 04/05/2022 by Nadeem Zhang MD at [facility] Explanted:Qty: 1 on 04/21/2022 by Nadeem Zhang MD Left: [employer] Jagruti 12/23/2024 180-222 / / [id number] Procedures Procedure Name Priority Date/Time Associated Diagnosis [...] agrees with it. ACC# Date Time Exam [id number] Apr 28, 2016 14:42:00 [place] [id number] Diag Mammogram Bilateral Technologist(s): Akosua Springer; ; [id number] Apr 28, 2016 14:42:00 [facility] [address] Dig Breast Garrison Andrzej Technologist(s): Akosua Springer; ; ACC# Date Time Exam [id number] Apr 28, 2016 14:42:00 [facility] [address]1151 Diag Mammogram Bilateral Technologist(s): Akosua Springer; ; [id number] Apr 28, 2016 14:42:00 [place] [id number] Dig Breast Garrison Andrzej Technologist(s): Akosua Springer; [...] obtained. Computer Aided Detection was performed with PetMD.3 version 9.3. Digital breast tomosynthesis was performed [...] DOWNING M.D. on Apr 28 2016 3:47P [id number] Procedure Note Provider, MD Radha - 02/19/2017 TAE DOWNING M.D. LEANN PARK M.D. FINAL REPORT The radiology attending physician has personally reviewed this study, and has reviewed and/or edited this written report and agrees with it. ACC# Date Time Exam [id number] Apr 28, 2016 14:42:00 [facility] 43724 Diag Mammogram Bilateral Technologist(s): Akosua Springer; ; [id number] Apr 28, 2016 14:42:00 [facility] 75409 Dig Breast Garrison Andrzej Technologist(s): Akosua Springer; ; ACC# Date Time Exam [id number] Apr 28, 2016 14:42:00 [facility] 52333 Diag Mammogram Bilateral Technologist(s): Akosua Springer; ; [id number] Apr 28, 2016 14:42:00 [facility] [id number] Dig Breast Garrison Andrzej Technologist(s): Akosua Springer; [...] obtained. Computer Aided Detection was performed with [employer] version 9.3. Digital breast tomosynthesis was performed [...] DOWNING M.D. on Apr 28 2016 3:47P [id number] us Historical Provider MD SOLITARIO MAMMO PROCEDURES Deana l Result from Last 3 Months or Most Recently Relevant to Health Maintenance Insurance [employer] [place] [address] [place] [address] [facility] Address: [address] [address] [place] [address] [employer] [facility] CHOICE PLUS [facility] H[employer]/PPO Address: [address] [address] [place] [address] Care Teams Community Mental Health Worker Relationship Specialty Start Date End Date Marifer Gupta NP [address] [place] [address] PCP - General Nurse Practitioner 01/04/22 Aroldo Connell III, MD [address] [place] [address] Referring Physician Neurology 11/11/22
--- OUTSIDE RECORDS SUMMARY | 2025-03-02 16:43 | XMS_ITS | Encounter Summary ---
Author Organization [facility] Address [address] [place] [address] Care Team Providers Care Baseball Umpire For Little League Name Role Phone Misael Ferraro MD Primary Care Provider Unavailab le Encounter Details Date Type Department Care Team (Late st Contact Info) Description 07/12/2000 Outpatient [facility] Primary Care [address] [place] [address] Thee lAy, DO NO ADDRESS ON FILE Social History Tobacco Use Types Packs/Day Years Used Date Smoking Tobacco: Never Assessed Comments Unknown Sex and Gender Information Value Date Recorded Sex Assigned at Not on file Legal Sex Female 2:55 AM MANAGER CLIENT SERVICE Gender Identity Not on file Sexual Orientation Not on file documented as of this encounter Plan of Treatment Not on file documented as of this encounter Visit Diagnoses Not on filedocumented in this encounter Care Teams Baseball Umpire For [employer] Relationship Specialty Start Date End Date Misael Ferraro MD PCP - General Family Practice 09/29/12 documented as of this encounter
--- OUTSIDE RECORDS SUMMARY | 2025-03-02 16:43 | XMS_ITS | Encounter Summary ---
Author Organization [facility] Address [address] [place] [address] Care Team Providers Care Aircraft Structural Design Engineer Name Role Phone Misael Ferraro MD Primary Care Provider Unavailab le Encounter Details Date Type Department Care Team (Late st Contact Info) Description 03/17/2000 Outpatient [facility] Primary Care - [address] [place] [address] Thee Aly, DO NO ADDRESS ON FILE Social History Tobacco Use Types Packs/Day Years Used Date Smoking Tobacco: Never Assessed Comments Unknown Sex and Gender Information Value Date Recorded Sex Assigned at Not on file Legal Sex Female 2:55 AM DOORKEEPER Gender Identity Not on file Sexual Orientation Not on file documented as of this encounter Plan of Treatment Not on file documented as of this encounter Visit Diagnoses Not on filedocumented in this encounter Care Teams Aircraft Structural Design Engineer Relationship Specialty Start Date End Date Misael Ferraro MD PCP - General Family Practice 09/29/12 documented as of this encounter
--- OUTSIDE RECORDS SUMMARY | 2025-03-02 16:43 | XMS_ITS | Encounter Summary ---
Author Organization [facility] Address [address] [place] [address] Care Team Providers Care Batt Machine Operator Name Role Phone Misael Ferraro MD Primary Care Provider Unavailab le Encounter Details Date Type Department Care Team (Late st Contact Info) Description 04/27/2002 Outpatient [facility] Primary Care [address] [place] [address] Thee Aly, DO NO ADDRESS ON FILE Social History Tobacco Use Types Packs/Day Years Used Date Smoking Tobacco: Never Assessed Comments Unknown Sex and Gender Information Value Date Recorded Sex Assigned at Not on file Legal Sex Female 2:55 AM APPLICATION PACKAGING CONSULTANT Gender Identity Not on file Sexual Orientation Not on file documented as of this encounter Plan of Treatment Not on file documented as of this encounter Visit Diagnoses Not on filedocumented in this encounter Care Teams Batt Machine Operator Relationship Specialty Start Date End Date Misael Ferraro MD PCP - General Family Practice 09/29/12 documented as of this encounter
--- OUTSIDE RECORDS SUMMARY | 2025-03-02 16:43 | XMS_ITS | Encounter Summary ---
Author Organization [facility] Address [address] [place] [address] Phone Care Team Providers Care Transmission Supervisor Name Role Phone Marifer Gupta NP Primary Care Provide r Becki FENTON MD, Aroldo Cruz Unavailable [phone] Reason for Visit * Reason Onset Date Comments Appointment 07/02/2022 Encounter Details Date Type Department Care Team (Late st Contact Info) Description 07/02/2022 Telephone [facility] ENT [address] [facility] Medical Office Building [address] [place] [address] Andrew Willard MD [address] [facility] [address] [place] [address] Appointment Social History Tobacco Use Types [...] on file Legal Sex Female 2:40 AM BAR MANAGER Gender Identity Not on file Sexual Orientation Not on file documented as of this encounter Plan of Treatment Not on file documented as of this encounter Visit Diagnoses Not on filedocumented in this encounter Care Teams Transmission Supervisor Relationship Specialty Start Date End Date Marifer Gupta NP [address] [place] [address] PCP - General Nurse Practitioner 01/04/22 Aroldo Connell III, MD [address] [place] [address] Referring Physician Neurology 11/11/22 documented as of this encounter
--- OUTSIDE RECORDS SUMMARY | 2025-03-02 16:43 | XMS_ITS | Encounter Summary ---
Author Organization [facility] Address [address] [place] [address] Care Team Providers Care Bark Peeler Name Role Phone Misael Ferraro MD Primary Care Provider Unavailab le Encounter Details Date Type Department Care Team (Late st Contact Info) Description 08/24/2004 Outpatient [facility] Primary Care [address] [place] [phone] Natalie Matute MD NO ADDRESS ON FILE Social History Tobacco Use Types Packs/Day Years Used Date Smoking Tobacco: Never Assessed Comments Unknown Sex and Gender Information Value Date Recorded Sex Assigned at Not on file Legal Sex Female 2:55 AM INVOICE CODER Gender Identity Not on file Sexual Orientation Not on file documented as of this encounter Plan of Treatment Not on file documented as of this encounter Visit Diagnoses Not on filedocumented in this encounter Care Teams Bark Peeler Relationship Specialty Start Date End Date Misael Ferraro MD PCP - General Family Practice 09/29/12 documented as of this encounter
--- OUTSIDE RECORDS SUMMARY | 2025-03-02 16:43 | XMS_ITS | Encounter Summary ---
Author Organization [facility] Address 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
--- OUTSIDE RECORDS SUMMARY | 2025-03-02 16:43 | XMS_ITS | Encounter Summary ---
Author Organization [facility] Address [address] [place] [address] Care Team Providers Care Salesforce Consultant Name Role Phone Misael Ferraro MD Primary Care Provider Unavailab le Encounter Details Date Type Department Care Team (Late st Contact Info) Description 11/28/2001 Outpatient [facility] Primary Care [address] [place] [address] Thee Aly, DO NO ADDRESS ON FILE Social History Tobacco Use Types Packs/Day Years Used Date Smoking Tobacco: Never Assessed Comments Unknown Sex and Gender Information Value Date Recorded Sex Assigned at Not on file Legal Sex Female 2:55 AM BILL HIKER Gender Identity Not on file Sexual Orientation Not on file documented as of this encounter Plan of Treatment Not on file documented as of this encounter Visit Diagnoses Not on filedocumented in this encounter Care Teams Salesforce Consultant Relationship Specialty Start Date End Date Misael Ferraro MD PCP - General Family Practice 09/29/12 documented as of this encounter
--- OUTSIDE RECORDS SUMMARY | 2025-03-02 16:43 | XMS_ITS | Encounter Summary ---
Author Organization [facility] Address [address] [place] [address] Care Team Providers Care Supply Clerk Name Role Phone Misael Ferraro MD Primary Care Provider Unavailab le Encounter Details Date Type Department Care Team (Late st Contact Info) Description 09/11/2004 Outpatient Historical [facility] LITHOGRAPHIC PRESS OPERATOR - [address] [address] Booker Morrell MD [address] [place] [phone] Social History Tobacco Use Types Packs/Day Years Used Date Smoking Tobacco: Never Assessed Comments Unknown Sex and Gender Information Value Date Recorded Sex Assigned at Not on file Legal Sex Female 2:55 AM LATEX THREAD 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
--- OUTSIDE RECORDS SUMMARY | 2025-03-02 16:43 | XMS_ITS | Clinical Summary ---
Author Organization [facility] Address [facility] [place] [address] Care Team Providers Care Ore Washer Name Role Phone Unavailable Primary Care Provider [...] Comments Blood Pressure 138/72 11/29/2013 4:51 PM MAIL SERVICE COORDINATOR Pulse - - Temperature - - Respiratory Rate - - Oxygen Saturation - - Inhaled Oxygen Concentration - - Weight 77.1 kg (170 lb) 11/29/2013 4:51 PM MAIL SERVICE COORDINATOR Height 167.6 cm (5' 6 ) 11/29/2013 4:51 PM MAIL SERVICE COORDINATOR Body Mass Index 27.44 11/29/2013 4:51 PM MAIL SERVICE COORDINATOR Plan of Treatment Health Maintenance Due Date [...] Screening with HPV 1990 Mammogram Screening 2000 Pneumococcal Vaccine: 50+ Ye ars (1 of 1 - PCV) 2010 Zoster Vaccines (1 of 2) 2010 COVID-19 Vaccine ( - 2023-2 5 season) 2024 RSV Immunization or 60+ Years (1 [...]
--- OUTSIDE RECORDS SUMMARY | 2025-03-02 16:43 | XMS_ITS | Encounter Summary ---
Author Organization [facility] Address [address] [place] [address] Care Team Providers Care Segment Block Layer Name Role Phone Misael Ferraro MD Primary Care Provider Unavailab le Encounter Details Date Type Department Care Team (Late st Contact Info) Description 09/04/2004 Outpatient Historical [facility] TANDEM MILL STICKER - [address] [address] Booker Morrell MD [address] [place] [phone] Social History Tobacco Use Types Packs/Day Years Used Date Smoking Tobacco: Never Assessed Comments Unknown Sex and Gender Information Value Date Recorded Sex Assigned at Not on file Legal Sex Female 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
--- OUTSIDE RECORDS SUMMARY | 2025-03-02 16:43 | XMS_ITS | Encounter Summary ---
Author Organization [facility] Address [address] [place] [address] Care Team Providers Care Slot Floor Supervisor Name Role Phone Misael Ferraro MD Primary Care Provider Unavailab le Encounter Details Date Type Department Care Team (Late st Contact Info) Description 07/16/1999 Outpatient [facility] Primary Care - [address] [place] [address] Thee Aly, DO NO ADDRESS ON FILE Social History Tobacco Use Types Packs/Day Years Used Date Smoking Tobacco: Never Assessed Comments Unknown Sex and Gender Information Value Date Recorded Sex Assigned at Not on file Legal Sex Female 2:55 AM ENDODONTICS DENTIST Gender Identity Not on file Sexual Orientation Not on file documented as of this encounter Plan of Treatment Not on file documented as of this encounter Visit Diagnoses Not on filedocumented in this encounter Care Teams Slot Floor Supervisor Relationship Specialty Start Date End Date Misael Ferraro MD PCP - General Family Practice 09/29/12 documented as of this encounter
--- OUTSIDE RECORDS SUMMARY | 2025-03-02 16:43 | XMS_ITS | Encounter Summary ---
Author Organization [facility] Address [address] [place] [address] Care Team Providers Care Resistance Welding Machine Operator Name Role Phone Misael Ferraro MD Primary Care Provider Unavailab le Encounter Details Date Type Department Care Team (Late st Contact Info) Description 02/24/2007 Outpatient [facility] Primary Care [address] [place] [address] Thee Aly, DO NO ADDRESS ON FILE Social History Tobacco Use Types Packs/Day Years Used Date Smoking Tobacco: Never Assessed Comments Unknown Sex and Gender Information Value Date Recorded Sex Assigned at Not on file Legal Sex Female 2:55 AM COUNTER WAITRESS/WAITER Gender Identity Not on file Sexual Orientation Not on file documented as of this encounter Plan of Treatment Not on file documented as of this encounter Visit Diagnoses Not on filedocumented in this encounter Care Teams Resistance Welding Machine Operator Relationship Specialty Start Date End Date Misael Ferraro MD PCP - General Family Practice 09/29/12 documented as of this encounter
--- OUTSIDE RECORDS SUMMARY | 2025-03-02 16:43 | XMS_ITS | Encounter Summary ---
Author Organization [employer] Address [address] [place] [address] Care Team Providers Care Interlocking Tower Operator Name Role Phone Misael Ferraro MD [...] on file Legal Sex Female 2:55 AM ENGINEER RF DEPLOYMENT Gender Identity Not on file Sexual Orientation Not on file documented as of this encounter Plan of Treatment Not on file documented as of this encounter Visit Diagnoses Diagnosis Cough- Primary documented in this encounter Care Teams Interlocking Tower Operator Relationship Specialty Start Date End Date Misael Ferraro MD PCP - General Family Practice 09/29/12 documented as of this encounter
--- OUTSIDE RECORDS SUMMARY | 2025-03-02 16:43 | XMS_ITS | Encounter Summary ---
Author Organization [facility] Address [address] [place] [address] Care Team Providers Care Venetian Blind Maker Name Role Phone Misael Ferraro MD Primary Care Provider Unavailab le Encounter Details Date Type Department Care Team (Late st Contact Info) Description 03/02/2004 Outpatient [facility] Primary Care - [address] [place] [address] Thee Aly, DO NO ADDRESS ON FILE Social History Tobacco Use Types Packs/Day Years Used Date Smoking Tobacco: Never Assessed Comments Unknown Sex and Gender Information Value Date Recorded Sex Assigned at Not on file Legal Sex Female 2:55 AM CANDY SUPERVISOR Gender Identity Not on file Sexual Orientation Not on file documented as of this encounter Plan of Treatment Not on file documented as of this encounter Visit Diagnoses Not on filedocumented in this encounter Care Teams Venetian Blind Maker Relationship Specialty Start Date End Date Misael Ferraro MD PCP - General Family Practice 09/29/12 documented as of this encounter
--- OUTSIDE RECORDS SUMMARY | 2025-03-02 16:43 | XMS_ITS | Encounter Summary ---
Author Organization [employer] Address 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
--- OUTSIDE RECORDS SUMMARY | 2025-03-02 16:43 | XMS_ITS | Encounter Summary ---
Author Organization [facility] Address [address] [place] [address] Care Team Providers Care Music Internship Name Role Phone Misael Ferraro MD Primary Care Provider Unavailab le Encounter Details Date Type Department Care Team (Late st Contact Info) Description 08/13/2005 Outpatient [facility] Primary Care - [address] [place] [address] Thee Aly, DO NO ADDRESS ON FILE Social History Tobacco Use Types Packs/Day Years Used Date Smoking Tobacco: Never Assessed Comments Unknown Sex and Gender Information Value Date Recorded Sex Assigned at Not on file Legal Sex Female 2:55 AM PUMP OILER Gender Identity Not on file Sexual Orientation Not on file documented as of this encounter Plan of Treatment Not on file documented as of this encounter Visit Diagnoses Not on filedocumented in this encounter Care Teams Music Internship Relationship Specialty Start Date End Date Misael Ferraro MD PCP - General Family Practice 09/29/12 documented as of this encounter
--- OUTSIDE RECORDS SUMMARY | 2025-03-02 16:43 | XMS_ITS | Encounter Summary ---
Author Organization [facility] Address [address] [place] [address] Care Team Providers Care Assembler Rubber Footwear Name Role Phone Misael Ferraro MD Primary Care Provider Unavailab le Encounter Details Date Type Department Care Team (Late st Contact Info) Description 12/16/1998 Outpatient [facility] Primary Care - [address] [place] [address] Thee Aly, DO NO ADDRESS ON FILE Social History Tobacco Use Types Packs/Day Years Used Date Smoking Tobacco: Never Assessed Comments Unknown Sex and Gender Information Value Date Recorded Sex Assigned at Not on file Legal Sex Female 2:55 AM DIRECTOR VACCINE Gender Identity Not on file Sexual Orientation Not on file documented as of this encounter Plan of Treatment Not on file documented as of this encounter Visit Diagnoses Not on filedocumented in this encounter Care Teams Assembler Rubber Footwear Relationship Specialty Start Date End Date Misael Ferraro MD PCP - General Family Practice 09/29/12 documented as of this encounter
--- OUTSIDE RECORDS SUMMARY | 2025-03-02 16:43 | XMS_ITS | Encounter Summary ---
Author Organization [facility] Address [address] [place] [address] Care Team Providers Care Documentation Coordinator Name Role Phone Misael Ferraro MD Primary Care Provider Unavailab le Encounter Details Date Type Department Care Team (Late st Contact Info) Description 07/23/2003 Outpatient [facility] Primary Care [address] [place] [address] Thee Aly, DO NO ADDRESS ON FILE Social History Tobacco Use Types Packs/Day Years Used Date Smoking Tobacco: Never Assessed Comments Unknown Sex and Gender Information Value Date Recorded Sex Assigned at Not on file Legal Sex Female 2:55 AM TECHNICIAN AUTOMATIC Gender Identity Not on file Sexual Orientation Not on file documented as of this encounter Plan of Treatment Not on file documented as of this encounter Visit Diagnoses Not on filedocumented in this encounter Care Teams Documentation Coordinator Relationship Specialty Start Date End Date Misael Ferraro MD PCP - General Family Practice 09/29/12 documented as of this encounter
--- OUTSIDE RECORDS SUMMARY | 2025-03-02 16:43 | XMS_ITS | Encounter Summary ---
Author Organization [facility] Address 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
--- OUTSIDE RECORDS SUMMARY | 2025-03-02 16:43 | XMS_ITS | Encounter Summary ---
Author Organization [facility] Address [address] [place] [address] Care Team Providers Care Photographic Engineer Name Role Phone Misael Ferraro MD Primary Care Provider Unavailab le Encounter Details Date Type Department Care Team (Late st Contact Info) Description 06/13/2001 Outpatient [facility] Primary Care [address] [place] [address] Thee Aly, DO NO ADDRESS ON FILE Social History Tobacco Use Types Packs/Day Years Used Date Smoking Tobacco: Never Assessed Comments Unknown Sex and Gender Information Value Date Recorded Sex Assigned at Not on file Legal Sex Female 2:55 AM EQUINE DENTIST Gender Identity Not on file Sexual Orientation Not on file documented as of this encounter Plan of Treatment Not on file documented as of this encounter Visit Diagnoses Not on filedocumented in this encounter Care Teams Photographic Engineer Relationship Specialty Start Date End Date Misael Ferraro MD PCP - General Family Practice 09/29/12 documented as of this encounter
--- OUTSIDE RECORDS SUMMARY | 2025-03-02 16:43 | XMS_ITS | Encounter Summary ---
Author Organization [facility] Address [address] [place] [address] Care Team Providers Care Weight Loss Physician Name Role Phone Misael Ferraro MD Primary Care Provider Unavailab le Encounter Details Date Type Department Care Team (Late st Contact Info) Description 04/19/2000 Outpatient [facility] Primary Care - [address] [place] [address] Thee Aly, DO NO ADDRESS ON FILE Social History Tobacco Use Types Packs/Day Years Used Date Smoking Tobacco: Never Assessed Comments Unknown Sex and Gender Information Value Date Recorded Sex Assigned at Not on file Legal Sex Female 2:55 AM RADIO OPERATOR GROUND Gender Identity Not on file Sexual Orientation Not on file documented as of this encounter Plan of Treatment Not on file documented as of this encounter Visit Diagnoses Not on filedocumented in this encounter Care Teams Weight Loss Physician Relationship Specialty Start Date End Date Misael Ferraro MD PCP - General Family Practice 09/29/12 documented as of this encounter
--- OUTSIDE RECORDS SUMMARY | 2025-03-02 16:43 | XMS_ITS | Encounter Summary ---
Author Organization [facility] Address [address] [place] [address] Care Team Providers Care Forensic Science Examiner Name Role Phone Misael Ferraro MD Primary Care Provider Unavailab le Encounter Details Date Type Department Care Team (Late st Contact Info) Description 03/23/2004 Outpatient [facility] Primary Care [address] [place] [address] Thee Aly, DO NO ADDRESS ON FILE Social History Tobacco Use Types Packs/Day Years Used Date Smoking Tobacco: Never Assessed Comments Unknown Sex and Gender Information Value Date Recorded Sex Assigned at Not on file Legal Sex Female 2:55 AM LEAD PRINCIPAL TECHNICAL 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
--- OUTSIDE RECORDS SUMMARY | 2025-03-02 16:43 | XMS_ITS | Encounter Summary ---
Author Organization [facility] Address [address] [place] [address] Care Team Providers Care Service Operations Manager Name Role Phone Misael Ferraro MD Primary Care Provider Unavailab le Encounter Details Date Type Department Care Team (Late st Contact Info) Description 02/22/2003 Outpatient [facility] Primary Care [address] [place] [address] Thee Aly, DO NO ADDRESS ON FILE Social History Tobacco Use Types Packs/Day Years Used Date Smoking Tobacco: Never Assessed Comments Unknown Sex and Gender Information Value Date Recorded Sex Assigned at Not on file Legal Sex Female 2:55 AM DIRECTOR OF CONSULTING SERVICES Gender Identity Not on file Sexual Orientation Not on file documented as of this encounter Plan of Treatment Not on file documented as of this encounter Visit Diagnoses Not on filedocumented in this encounter Care Teams Service Operations Manager Relationship Specialty Start Date End Date Misael Ferraro MD PCP - General Family Practice 09/29/12 documented as of this encounter
--- OUTSIDE RECORDS SUMMARY | 2025-03-02 16:43 | XMS_ITS | Encounter Summary ---
Author Organization [facility] Address 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
--- OUTSIDE RECORDS SUMMARY | 2025-03-02 16:43 | XMS_ITS | Clinical Summary ---
Author Organization [facility] [facility] Address [address] [place] [address] Phone Care Team Providers Care Anchor Tack Puller Name Role Phone Misael eFrraro MD Primary Care Provider Unavailab le Allergies [...] on file Legal Sex Female 2:55 AM PRESS SERVICE READER Gender Identity Not on file Sexual Orientation Not on file Last Filed Vital Signs Vital Sign Reading Time Taken Comments Blood Pressure 140/82 09/29/2012 1:31 PM PRESS SERVICE READER Pulse - - Temperature 36.8 C (98.3 F) 09/29/2012 1:31 PM PRESS SERVICE READER Respiratory Rate - - Oxygen Saturation - - Inhaled Oxygen Concentration - - Weight 81.6 kg (180 lb) 09/29/2012 1:31 PM PRESS SERVICE READER Height 166.4 cm (5' 5.5 ) 09/29/2012 1:31 PM PRESS SERVICE READER Body Mass Index 29.5 09/29/2012 1:31 PM PRESS SERVICE READER Plan of Treatment Health Maintenance Due Date Last Done Comments DTAP/TDAP/TD VACCINES (1 - Tdap) 1979 HPV/Cotest (21-29) 1981 CERVICAL CANCER SCREENING 1990 HPV/Cotest (30-65) 1990 PAP SMEAR 1990 BREAST CANCER SCREENING 2000 COLORECTAL SCREENING 2005 Colorectal Cancer Screening 2005 FIT-DNA Q 3 years 2005 FIT/FOBT Q 1 year 2005 Flex Sig/CT Colonography Q 5 years 2005 ZOSTER VACCINE (1 of 2) 2010 INFLUENZA VACCINE (#1) 2024 RSV VACCINE (60+ or ) (1 - 1-dose 75+ series) 2035 Insurance [employer] [facility] [place] [facility] [place] [facility] [place] Address: [address] [address] Care Teams Anchor Tack Puller Relationship Specialty Start Date End Date Misael Ferraro MD PCP - General Family Practice 09/29/12
--- OUTSIDE RECORDS SUMMARY | 2025-03-02 16:43 | XMS_ITS | Encounter Summary ---
Author Organization [employer] Address 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
--- OUTSIDE RECORDS SUMMARY | 2025-03-02 16:43 | XMS_ITS | Encounter Summary ---
Author Organization [facility] Address [address] [place] [address] Care Team Providers Care Specialty Finishing Utility Person Name Role Phone Misael Ferraro MD Primary Care Provider Unavailab le Encounter Details Date Type Department Care Team (Late st Contact Info) Description 11/04/2000 Outpatient [facility] Primary Care [address] [place] [address] Thee Aly, DO NO ADDRESS ON FILE Social History Tobacco Use Types Packs/Day Years Used Date Smoking Tobacco: Never Assessed Comments Unknown Sex and Gender Information Value Date Recorded Sex Assigned at Not on file Legal Sex Female 2:55 AM LEAD HOUSEKEEPER Gender Identity Not on file Sexual Orientation Not on file documented as of this encounter Plan of Treatment Not on file documented as of this encounter Visit Diagnoses Not on filedocumented in this encounter Care Teams Specialty Finishing Utility Person Relationship Specialty Start Date End Date Misael Ferraro MD PCP - General Family Practice 09/29/12 documented as of this encounter
--- OUTSIDE RECORDS SUMMARY | 2025-03-02 16:43 | XMS_ITS | Encounter Summary ---
Author Organization [facility] Address [address] [place] [address] Care Team Providers Care Research Electrician Name Role Phone Misael Ferraro MD Primary Care Provider Unavailab le Encounter Details Date Type Department Care Team (Late st Contact Info) Description 05/16/2001 Outpatient [facility] Primary Care [address] [place] [address] Thee Aly, DO NO ADDRESS ON FILE Social History Tobacco Use Types Packs/Day Years Used Date Smoking Tobacco: Never Assessed Comments Unknown Sex and Gender Information Value Date Recorded Sex Assigned at Not on file Legal Sex Female 2:55 AM DIRECTOR PHONE Gender Identity Not on file Sexual Orientation Not on file documented as of this encounter Plan of Treatment Not on file documented as of this encounter Visit Diagnoses Not on filedocumented in this encounter Care Teams Research Electrician Relationship Specialty Start Date End Date Misael Ferraro MD PCP - General Family Practice 09/29/12 documented as of this encounter
--- OUTSIDE RECORDS SUMMARY | 2025-03-02 16:43 | XMS_ITS | Encounter Summary ---
Author Organization [facility] Address [address] [place] [address] Care Team Providers Care Flake Drier Name Role Phone Misael Ferraro MD Primary Care Provider Unavailab le Encounter Details Date Type Department Care Team (Late st Contact Info) Description 08/14/2003 Outpatient [facility] Primary Care [address] [place] [address] Natalie Matute MD NO ADDRESS ON FILE Social History Tobacco Use Types Packs/Day Years Used Date Smoking Tobacco: Never Assessed Comments Unknown Sex and Gender Information Value Date Recorded Sex Assigned at Not on file Legal Sex Female 2:55 AM MASTER AT ARMS Gender Identity Not on file Sexual Orientation Not on file documented as of this encounter Plan of Treatment Not on file documented as of this encounter Visit Diagnoses Not on filedocumented in this encounter Care Teams Flake Drier Relationship Specialty Start Date End Date Misael Ferraro MD PCP - General Family Practice 09/29/12 documented as of this encounter
--- OUTSIDE RECORDS SUMMARY | 2025-03-02 16:43 | XMS_ITS | Encounter Summary ---
Author Organization [facility] Address [address] [place] [address] Care Team Providers Care Insurance Business Analyst Name Role Phone Misael Ferraro MD Primary Care Provider Unavailab le Encounter Details Date Type Department Care Team (Late st Contact Info) Description 07/29/2003 Outpatient [facility] Primary Care [address] [place] [address] Natalie Matute MD NO ADDRESS ON FILE Social History Tobacco Use Types Packs/Day Years Used Date Smoking Tobacco: Never Assessed Comments Unknown Sex and Gender Information Value Date Recorded Sex Assigned at Not on file Legal Sex Female 2:55 AM BOTTOM LOADER Gender Identity Not on file Sexual Orientation Not on file documented as of this encounter Plan of Treatment Not on file documented as of this encounter Visit Diagnoses Not on filedocumented in this encounter Care Teams Insurance Business Analyst Relationship Specialty Start Date End Date Misael Ferraro MD PCP - General Family Practice 09/29/12 documented as of this encounter
--- OUTSIDE RECORDS SUMMARY | 2025-03-02 16:43 | XMS_ITS | Encounter Summary ---
Author Organization [employer] Address [address] [place] [address] Care Team Providers Care Accounting Policy Consultant Name Role Phone Misael Ferraro MD Primary Care Provider Unavailab le Encounter Details Date Type Department Care Team (Latest Contact Info) Description 02/24/2007 Outpatient Historical [facility] [place] Thee DO Bertha NO ADDRESS ON FILE Abdominal Pain, Right Lower Quadrant (Primary Dx) Social History Tobacco Use Types Packs/Day Years Used Date Smoking Tobacco: Never Assessed Comments Unknown Sex and Gender Information Value Date Recorded Sex Assigned at Not on file 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 Gender Identity Not on file Sexual [...] DO URINE ORDERABLES Edited Performing Organization Address [facility] Co de Phone Number INTERFACE SYSTEM Refer [...] and non- Americans is available on the [facility] Intranet at: [email or web address] Select: Lab Policies and Procedures Select: Reference Ranges - GFR 02/24/2007 10:2 6 AM CDT Thee Aly DO CHEMISTRY ORDERABLES Edited Performing Organization Address [facility] Co de Phone Number INTERFACE SYSTEM Refer to clinic/hospital department documented in this encounter Visit Diagnoses Diagnosis Abdominal pain, right lower quadrant- Primary documented in this encounter Care Teams Accounting Policy Consultant Relationship Specialty Start Date End Date Misael Ferraro MD PCP - General Family Practice 09/29/12 documented as of this encounter
--- OUTSIDE RECORDS SUMMARY | 2025-03-02 16:43 | XMS_ITS | Continuity of Care Document ---
Author Organization [employer] Address [address] [place] [address] [address] [place] [address] Phone Care Team Providers Care Radio Talk Show Host Name Role Phone Lara PT,MPT,ATC, David Unavailable [...] Diagnoses Date Provider Providers Copied on Encounter [facility], [address], [place], [place], [id number], [place] tel:[phone] Celestine No Information Dec-0 6-201 6 [facility] , [place], [place]. Referring Provider: Erlin Kc, [facility] [address] [place] [address] [address], [place], [facility]. tel:[phone] [facility] [address], [place], [place], [id number], [place] tel:[phone] Celestine No Information Nov-3 0-201 6 [facility] , [place], [place]. Referring Provider: Erlin Kc, [facility] [address] [place] [address] [address], [place], [facility]. tel:[phone] [facility] [address], [place], [place], [id number], [place] tel:[phone] Celestine No Information Nov-1 8-201 6 [facility] , [place], [place]. Referring Provider: Erlin Kc, [facility] [address] [place] [address] [address], [place], [facility]. tel:[phone] [facility] [address], [place], [place], [id number], [place] tel:[phone] Celestine No Information Nov-0 9-201 6 [facility] [place] Referring Provider: Erlin Kc, [facility] [address] [place] [address] [address], [place], [facility]. tel:[phone] [facility] [address], [place], [place], [id number], [place] tel:[phone] Celestine No Information Nov-0 2-201 6 [facility] [place] Referring Provider: Erlin Kc, [facility] [address] [place] [address] [address], [place], [facility]. tel:[phone] [facility] [address], [place], [place], [id number], [place] tel:[phone] Celestine No Information Jul-2 6 6 [place], [place]. Referring Provider: Erlin Kc, [facility] [address] [place] [address] [address], [place], [facility]. tel:[phone] [facility] [address], [place], [place], [address], [place] tel:[phone] Celestine No Information Jul-1 9 6 [place], [place]. Referring Provider: Erlin Kc, [facility] [address] [place] [address] [address], [place], [facility]. tel:[phone] [facility] [address] [place], [place] [address], [place], [place], [id number], tel:[phone] Celestine No Information 6 [place]. Referring Provider: Erlin Kc, [facility] [address] [place] [address] [address], [place], [facility]. tel:[phone] [facility] [address] [place], [place] [address], [place], [place], [address], [place] tel:[phone] Celestine No Information Jul-0 6 Haley Lutz. [address] [place] [address], [address], [place], [facility], . tel:[phone] Referring Provider: Erlin Kc, [facility] [address] [place] [address] [address], [place], [facility]. tel:[phone] [facility] [address] [place], [place] [address], [place], [place], [id number], [place] tel:[phone] Celestine No Information Jul-3 0- 6 [place]. Referring Provider: Erlin Kc, [facility] [address] [place] [address] [address], [place], [facility]. tel:[phone] [facility], [address], [place], [place], [address], [place] tel:[phone] Celestine No Information Sep-2 6 [facility] [place] Referring Provider: Erlin Kc, [facility] [address] [place] [address] [address], [place], [facility]. tel:[phone] [facility] [address], [place], [place], [address], [place] tel:[phone] Celestine No Information Sep-1 6 [facility] [place] Referring Provider: Erlin Kc, [facility] [address] [place] [address] [address], [place], [facility]. tel:[phone] [facility] [address] [place], [place] [address], [place], [place], [id number], [place] tel:[phone] Celestine No Information Sep-1 6 [place]. Referring Provider: Erlin Kc, [facility] [address] [place] [address] [address], [place], [facility]. tel:[phone] [facility] [address], [place], [place], [address], [place] tel:[phone] Celestine No Information Sep-1 6 [place]. Referring Provider: Erlin Kc, [facility] [address] [place] [address] [address], [place], [facility]. tel:[phone] [facility] [address], [place], [place], [address], [place] tel:[phone] Celestine No Information Sep-0 6 [facility] [place] Referring Provider: Erlin Kc, [facility] [address] [place] [address] [address], [place], [facility]. tel:[phone] [facility], [address] [facility] [address], [place], [id number], [place] tel:[phone] Celestine No Information 6 [place]. Referring Provider: Erlin Kc, [facility] [address] [place] [address] [address], [place], [facility]. tel:[phone] [facility] [address], [id number], [place] tel:[phone] Celestine No Information 6 [place]. Referring Provider: Erlin Kc, [facility] [address] [place] [address] [address], [place], [facility]. tel:[phone] [facility] [address], [id number], [place] tel:[phone] Celestine Muscle wasting and atrophy, NEC, left thigh 6 [place], [place]. Referring Provider: Erlin Kc, [facility] [address] [place] [address] [address], [place], [facility]. tel:[phone] [place] [address], [id number], [place] tel:[phone] Celestine Oth symptoms and signs involving the musculoskeleta l systemMuscle weakness (generalized) 6 [place] Sophia. [id number] [place] [address], [address], [facility], [place]. tel:[phone] Referring Provider: Erlin Kc, [facility] [address] [place] [address] [address], [place], [facility]. tel:[phone] [place] [address] [address], [id number], [place] tel:[phone] Celestine Pain, unspecified 0 6 [place], [place]. Referring Provider: Physician [facility], [facility] [address], [place], [place], [address], [place] tel:[phone] Celestine No Information Sep- [address] [facility], [address], [place], [facility], . tel: [phone] Referring Provider: Erlin Kc, [facility] [address] [place] [address] [address], [place], [facility]. tel:[phone] [place], [place] [address], [place], [place], [address], tel:[phone] Celestine No Information Sep- 5 [place], [place]. Referring Provider: Erlin Kc, [facility] [address] [place] [address] [address], [place], [facility]. tel:[phone] [place], [place] [address] [address], [place], [place], [address], [place] tel:[phone] Celestine No Information 5 Haley Lutz. [address] [place] [address], [address], [place], [facility], [place]. tel: [phone] Referring Provider: Erlin Kc, [facility] [address] [place] [address] [address], [place], [facility]. tel:[phone] [place], [place] [address], [place], [place], [address], [place] tel:[phone] Celestine No Information Dec-0 5 Haley Lutz. [address] [place] [address], [address], [facility], . tel: [phone] Referring Provider: Erlin Kc, [facility] [address] [place] [address] [address], [facility]. tel:[phone] [place] [address], [place], [id number], tel:[phone] Celestine No Information [address] [facility], [address], [place], [facility], . tel:[phone] Referring Provider: Erlin Kc, [facility] [address] [place] [address] [address], [place], [facility]. tel:[phone] [place], [place] [address], [place], [address], tel:[phone] Celestine No Information 0 [address] [facility], [address], [place], [facility], . tel:[phone] Referring Provider: Erlin Kc, [facility] [address] [place] [address] [address], [facility]. tel:[phone] [place] [address], [place], [address], tel:[phone] Celestine No Information 5 Haley Lutz. [address] [place] [address], [address], [place], [facility], . tel:[phone] Referring Provider: Erlin Kc, [facility] [address] [place] [address] [address], [facility]. tel:[phone] [place], [place] [address], [place], [id number], [place] tel:[phone] Celestine No Information [place]. Referring Provider: Erlin Kc, [facility] [address] [place] [address] [address], [place], [facility]. tel:[phone] [place], [place] [address], [place], [place], [id number], tel:[phone] Celestine No Information [facility] , [place], [place]. Referring Provider: Erlin Kc, [facility] [address] [place] [address] [address], [place], [address]. tel:[phone] [place] [address], [id number], tel:[phone] Celestine No Information 3-201 5 Haley Lutz. [address] [place] [address], [address], [facility], . tel:[phone] Referring Provider: Erlin Kc, [facility] [address] [place] [address] [address], [place], [address]. tel:[phone], [id number], tel:[phone] Celestine No Information 0-201 5 Haley Lutz. [address] [place] [address], [address], [facility], . tel:[phone] Referring Provider: Erlin Kc, [facility] [address] [place] [address] [address], [place], [address]. tel:[phone], [id number], tel:[phone] Celestine No Information 8 5 Haley Lutz. [address] [place] [address], [address], [facility], . tel:[phone] Referring Provider: Erlin Kc, [facility] [address] [place] [address] [address], [place], [address]. tel:[phone], [id number], tel:[phone] Celestine No Information 6 5 Haley Lutz. [address] [place] [address], [address], [facility], . tel:[phone] Referring Provider: Erlin Kc, [facility] [address] [place] [address] [address], [place], [address]. tel:[phone], [id number], tel:[phone] Celestine No Information 3-201 5 Haley Lutz. [address] [place] [address], [address], [facility], . tel:[phone] Referring Provider: Erlin Kc, [facility] [address] [place] [address] [address], [place], [address]. tel:[phone], [id number], tel:[phone] Celestine No Information 5 Haley Lutz. [address] [place] [address], [address], [facility], . tel:[phone] Referring Provider: Erlin Kc, [facility] [address] [place] [address] [address] [place] [address], [address]. tel:[phone], [id number], tel:[phone] Celestine No Information 0-201 5 Haley Lutz. [address] [place] [address], [address], [facility], [place]. tel:[phone] Referring Provider: Erlin Kc, [facility] [address] [place] [address] [address], [place], [address]. tel:[phone], [id number], tel:[phone] Celestine No Information 0 6-201 5 Mich Haji. [address] [place] [address], [address], [facility], . tel:[phone] Referring Provider: Erlin Kc, [facility] [address] [place] [address] [address], [place], [address]. tel:[phone] [address], [place], [id number], tel:[phone] Celestine No Information 0 3-201 5 [place] Raissa. [address] [place] [address], [address], [facility], . tel:[phone] Referring Provider: Erlin Kc, [facility] [address] [place] [address] [address], [place], [address]. tel:[phone] [address] [place] [address], [id number], [place] tel:[phone] Celestine No Information 3 0-201 5 [place] Raissa. [address] [place] [address], [address], [facility], [place]. tel:[phone] Referring Provider: Erlin Kc, [facility] [address] [place] [address] [address], [place], [address]. tel:[phone] [address] [place] [address], [id number], [place] tel:[phone] Celestine No Information 2 8-201 5 [place] Raissa. [address] [place] [address], [address], [facility], [place]. tel:[phone] Referring Provider: Erlin Kc, [facility] [address] [place] [address] [address], [place], [address]. tel:[phone] [address], [id number], [place] tel:[phone] Celestine No Information 9-201 5 Mich Raissa. [address] [place] [address], [address], [facility], . tel:[phone] Referring Provider: Erlin Kc, [facility] [address] [place] [address] [address], [place], [address]. tel:[phone] [address], [place], [id number], [place] tel:[phone] Celestine No Information 6-201 5 [place] Raissa. [address] [place] [address], [address], [place], [facility], [place]. tel:[phone] Referring Provider: Erlin Kc, [facility] [address] [place] [address] [address], [place], [address]. tel:[phone] [address] [facility], [place], [place], [address], [place] tel:[phone] Celestine No Information 5-201 5 [place] Raissa. [address] [place] [address], [address], [facility], [place]. tel:[phone] Referring Provider: Erlin Kc, [facility] [address] [place] [address] [address], [place], [address]. tel:[phone] [address], [place], [place], [id number], [place] tel:[phone] Celestine No Information 2-201 5 Mich Raissa. [address] [place] [address], [address], [facility], [place]. tel:[phone] Referring Provider: Erlin Kc, [facility] [address] [place] [address] [address], [place], [address]. [phone], [place], [id number], [place] tel:[phone] Celestine No Information 9-201 5 Mich Raissa. [address] [place] [address], [address], [place], [facility], [place]. tel:[phone] Referring Provider: Erlin Kc, [facility] [address] [place] [address] [address], [place], [address]. tel:[phone] [place] [address], [id number], tel:[phone] Celestine No Information Jul-0 7-201 5 Mich Raissa. [address] [place] [address], [address], [facility], . tel:[phone] Referring Provider: Erlin Kc, [facility] [address] [place] [address] [address], [place], [facility]. tel:[phone] [place] [address], [id number], tel:[phone] Celestine No Information Jul-0 6-201 5 Mich Raissa. [address] [place] [address], [address], [facility], [place]. tel:[phone] Referring Provider: Erlin Kc, [facility] [address] [place] [address] [address], [place], [facility]. tel:[phone] [place] [address] [place] [address], [id number], [place] tel:[phone] Celestine Pain in left kneeStiffness of left knee, not elsewhere classifiedWeak nessUnilateral primary osteoarthritis , left kneeDispl bicondylar fx l tibia, subs for clos fx w routn heal Jul-0 2-201 5 [place] Raissa. [address] [place] [address], [address], [facility], [place]. [phone] Referring Provider: Erlin Kc, [facility] [address] [place] [address] [address], [place], [facility]. tel:[phone] [place] [address], [address] [place] [address] [address], [place], [place], [id number], [place] tel:[phone] Celestine No Information Jul-3 0-201 5 [place] Raissa. [address] [place] [address], [address], [facility], . [phone] Referring Provider: Erlin Kc, [facility] [address] [place] [address] [place] [address], [facility]. tel:[phone], [place], [id number], tel:[phone] Celestine No Information Sep-2 8201 5 Mich Haji. [address] [place] [address], [facility] [address] [address], . tel:[phone] Referring Provider: Erlin Kc, [facility] [address] [place] [address], [facility]. tel:[phone], [place], [address], tel:[phone] Celestine Pain in joint involving lower legClosed fracture of upper end of tibia Sep-2 3201 5 Mich Haji. [address] [place] [address], [address], [facility], . [phone] Referring Provider: Erlin Kc, [facility] [address] [place] [address], [facility]. tel:[phone] Family History Family Member Type Diagnosis Age At Onset No Information Payers Payer name Insurance type Covered democrat ID Josefa loya(s) [employer] CI [id number] Social History Type Description Quantity [...]
--- OUTSIDE RECORDS SUMMARY | 2025-03-02 16:43 | XMS_ITS | Encounter Summary ---
Author Organization [facility] Address 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
--- OUTSIDE RECORDS SUMMARY | 2025-03-02 16:43 | XMS_ITS | Encounter Summary ---
Author Organization [employer] Address 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
--- OUTSIDE RECORDS SUMMARY | 2025-03-02 16:43 | XMS_ITS | Encounter Summary ---
Author Organization [facility] Address 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
--- OUTSIDE RECORDS SUMMARY | 2025-03-02 16:43 | XMS_ITS | Encounter Summary ---
Author Organization [facility] Address [address] [place] [address] Care Team Providers Care Calender Wind Up Tender Name Role Phone Misael Ferraro MD Primary Care Provider Unavailab le Encounter Details Date Type Department Care Team (Late st Contact Info) Description 10/21/2004 Outpatient Historical [facility] COAL [facility]ASSER - [address] [address] Booker Morrell MD [address] [place] [phone] Social History Tobacco Use Types Packs/Day Years Used Date Smoking Tobacco: Never Assessed Comments Unknown Sex and Gender Information Value Date Recorded Sex Assigned at Not on file 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
--- OUTSIDE RECORDS SUMMARY | 2025-03-02 16:43 | XMS_ITS | Encounter Summary ---
Author Organization [facility] Address 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
--- OUTSIDE RECORDS SUMMARY | 2025-03-02 16:43 | XMS_ITS | Referral Summary ---
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 The mild change in the neck [...] (03/01/2022): Added automatically from request for surgery [id number] History of kidney stones 02/10/2022 Bilateral flank pain 02/10/2022 Nephrolithiasis 01/04/2022 Vitamin D deficiency 01/04/2022 Paradoxical vocal fold motion disorder 9 Assessment & Plan (08/28/2019 1:49 PM CDT): I have recommended laryngeal control therapy here at the [facility] in order [...] on file Legal Sex Female 2:40 AM SVP OF DIGITAL Gender Identity Not on file Sexual Orientation Not on file Last Filed Vital Signs Vital Sign Reading Time Taken Comments Blood Pressure 114/87 02/09/2023 8:08 AM CDT Pulse 74 02/09/2023 8:08 AM CDT Temperature 37 C (98.6 F) 10/13/2022 1:26 PM SVP OF DIGITAL Respiratory Rate 18 09/14/2022 4:58 PM SVP OF DIGITAL Oxygen Saturation 100% 09/14/2022 11:50 PM SVP OF DIGITAL Inhaled Oxygen Concentration - - Weight 64.9 kg (143 lb) 02/09/2023 8:08 AM CDT Height 165.1 cm (5' 5 ) 02/09/2023 8:08 AM CDT Body Mass Index 23.8 02/09/2023 8:08 AM CDT Plan of Treatment Not on file Medical Devices Explanted Type Area Physical Therapist Aide Device Identifier Shelf Expiration Date Model / Serial / Lot [employer] Universa 6fr 26cm Radiopaque Positioner Monofilament Tether 2 [id number] - [id number] Implanted:Qty: 1 on 03/16/2022 by Manav Iqbal MD at [facility] Explanted:Qty: 1 on 03/31/2022 by Manav Iqbal MD Left: Ureter [employer] 01/20/2025 [id number] / / [id number] [employer] Jagruti Contour 6fr 24cm Large Inner Lumen Low Profile Bladder Jori Taper Latex Free 180-222 - [id number] Implanted:Qty: 1 on 04/05/2022 by Nadeem Zhang MD at [facility] Explanted:Qty: 1 on 04/21/2022 by Nadeem Zhang MD Left: Ureter [employer] Jagruti 12/23/2024 180-222 / / [id number] Procedures Procedure Name Priority Date/Time Associated Diagnosis [...] agrees with it. ACC# Date Time Exam [id number] Apr 28, 2016 14:42:00 [facility] [id number] Diag Mammogram Bilateral Technologist(s): Akosua Springer; ; [id number] Apr 28, 2016 14:42:00 [facility] 07953 Dig Breast Garrison Andrzej Technologist(s): Akosua Springer; ; ACC# Date Time Exam [id number] Apr 28, 2016 14:42:00 [facility] 08650 Diag Mammogram Bilateral Technologist(s): Akosua Springer; ; [id number] Apr 28, 2016 14:42:00 [facility] 74326 Dig Breast Garrison Andrzej Technologist(s): Akosua Springer; [...] obtained. Computer Aided Detection was performed with MasteryConnect.3 version 9.3. Digital breast tomosynthesis was performed [...] DOWNING M.D. on Apr 28 2016 3:47P [id number] Procedure Note Provider, MD Radha - 02/19/2017 TAE DOWNING M.D. LEANN PARK M.D. FINAL REPORT The radiology attending physician has personally reviewed this study, and has reviewed and/or edited this written report and agrees with it. ACC# Date Time Exam [id number] Apr 28, 2016 14:42:00 [facility] 24816 Diag Mammogram Bilateral Technologist(s): Akosua Springer; ; [id number] Apr 28, 2016 14:42:00 [facility] 86254 Dig Breast Garrison Andrzej Technologist(s): Akosua Springer; ; ACC# Date Time Exam [id number] Apr 28, 2016 14:42:00 [facility] 81483 Diag Mammogram Bilateral Technologist(s): Akosua Springer; ; [id number] Apr 28, 2016 14:42:00 [facility] 00884 Dig Breast Garrison Nadrzej Technologist(s): Akosua Springer; ; EXAMINATION: BILATERAL FULL [...] obtained. Computer Aided Detection was performed with [employer] 1.3 version 9.3. Digital breast tomosynthesis was [...] DOWNING M.D. on Apr 28 2016 3:47P [id number] Historical Provider MD SOLITARIO MAMMO PROCEDURES Deana l Result from Last 3 Months or Most Recently Relevant to Health Maintenance Insurance [email or web address] OPEN ACCESS [facility] [place] [address] Care Teams Frontload Driver Relationship Specialty Start Date End Date Marifer Gupta NP [address] [place] [address] PCP - General Nurse Practitioner 01/04/22 Aroldo Connell III, MD [address] [place] [address] Referring Physician Neurology 11/11/22
--- OUTSIDE RECORDS SUMMARY | 2025-03-02 16:43 | XMS_ITS | Encounter Summary ---
Author Organization [facility] [facility] Address [address] [place] [address] Care Team Providers Care Parts Clerk Plant Maintenance Name Role Phone Misael Ferraro MD Primary Care Provider Unavailab le Encounter Details Date Type Department Care Team (Latest Contact Info) Description 09/17/2005 [facility] JOINT PAIN-L/LEG (Primary Dx) Social History Tobacco Use Types Packs/Day Years Used Date Smoking Tobacco: Never Assessed Comments Unknown Sex and Gender Information Value Date Recorded Sex Assigned at Not on file Legal Sex Female 2:55 AM BATCH MAKER Gender Identity Not on file Sexual Orientation Not on file documented as of this encounter Plan of Treatment Not on file documented as of this encounter Visit Diagnoses Diagnosis Pain in joint, lower leg- Primary documented in this encounter Care Teams Parts Clerk Plant Maintenance Relationship Specialty Start Date End Date Misael Ferraro MD PCP - General Family Practice 09/29/12 documented as of this encounter
--- OUTSIDE RECORDS SUMMARY | 2025-03-02 16:43 | XMS_ITS | Encounter Summary ---
Author Organization [facility] Address [address] [place] [address] Care Team Providers Care Cma Or Lpn Name Role Phone Misael Ferraro MD Primary Care Provider Unavailab le Encounter Details Date Type Department Care Team (Late st Contact Info) Description 09/24/2000 Outpatient [facility] Primary Care [address] [place] [phone] Devaughn Castro, DO * Social History Tobacco Use Types Packs/Day Years Used Date Smoking Tobacco: Never Assessed Comments Unknown Sex and Gender Information Value Date Recorded Sex Assigned at Not on file Legal Sex Female 2:55 AM CREDIT SPECIALIST Gender Identity Not on file Sexual Orientation Not on file documented as of this encounter Plan of Treatment Not on file documented as of this encounter Visit Diagnoses Not on filedocumented in this encounter Care Teams Cma Or Lpn Relationship Specialty Start Date End Date Misael Ferraro MD PCP - General Family Practice 09/29/12 documented as of this encounter
--- OUTSIDE RECORDS SUMMARY | 2025-03-02 16:44 | XMS_ITS | Clinical Summary ---
Author Organization [facility] Address [address] [place] [address] Care Team Providers Care Glue Size Machine Operator Name Role Phone Víctor Thompson MD Primary Care Provider [phone] Source Comments [facility],non-owned Affiliates and Associated Physician Practices is amultiple site organization consisting of ambulatory clinics and hospital sitesin [place], [place], [place]. This disclosure is being madepursuant to the Care Everywhere program and may not contain all information available regarding this patient. Last updated 18.[facility] [employer] Allergies Active Allergy Reactions Criticality Noted Date Comments Codeine Unknown 09/29/2012 Latex Unknown 09/29/2012 Medications * Be aware that medications may not be up to date on this document. Alwaysverify current medications with the patient. albuterol HFA (PROVENTIL;VENT MARSHALL;PROAIR) 108 (90 Base) MCG/ACT inhaler Inhale 2 puffs by mouth every 4 hours as needed 6 9 Active benzonatate (TESSALON) 100 MG capsule TAKE 1 CAPSULE BY MOUTH EVERY 8 HOURS NEEDED FOR COUGH FOR 7 DAYS 0 9 Active diazePAM (VALIUM) 5 MG tablet TAKE 1 TABLET BY MOUTH THREE TIMES A DAY NEEDED 5 9 Active TRELEGY ELLIPTA 100-62.5-25 MCG/INH INHALE 1 PUFF BY MOUTH ONCE A DAY RINSE MOUTH AFTER USE 6 9 Active gabapentin (NEURONTIN) 100 MG capsule TAKE 2 CAPSULES BY MOUTH IN THE MORNING, 1 CAPSULE IN THE AFTERNOON AND 2 IN THE EVENING 3 9 Active Nebulizers (VIOS AEROSOL DELIVERY SYSTEM) MISC USE 6 TIMES DAILY UTD PRN 0 9 Active topiramate (TOPAMAX) 200 MG tablet Take 200 mg by mouth 2 times daily 5 9 Active Social History Tobacco Use Types Packs/Day Years Used Date Smoking Tobacco: Former Smokeless Tobacco: Never Alcohol Use Standard Drinks/Week Comments Not Currently 0 (1 standard drink = 0.6 oz pur e alcohol) Comments Unknown Sex and Gender Information Value Date Recorded Sex Assigned at Not on file Legal Sex Female 5:50 PM FISHING BOAT CAPTAIN Gender Identity Not on file Sexual [...] VACCINE (1 - 2023-2 5 season) 2024 DEPRESSION SCREENING 10/31/2024 INFLUENZA VACCINE (Season Ended) 2025 Respiratory Syncytial Virus (RSV) Vaccine Pt: or [...] patient's age to complete this topic Insurance [employer] Care Teams Glue Size Machine Operator Relationship Specialty Start Date End Date Víctor Thompson MD [address] [place] [address] PCP - General 10/29/19
[2025-03-02 17:24] LABS: Basophils Absolute Auto 0.07 K/mm3 (0.00-0.10); Basophils Percent Auto 0.7 % (0.0-1.0); Eosinophils Absolute Auto 0.18 K/mm3 (0.02-0.50); Eosinophils Percent Auto 1.8 % (1.0-6.0); Hematocrit 43.1 % (35.0-49.0); Immature Granulocyte Absolute 0.03 K/mm3 (0.00-0.00); Immature Granulocyte Percent A 0.3 % (0.0-0.0); Lymphocytes Absolute Auto 3.35 K/mm3 (1.10-4.50); Lymphocytes Percent Auto 32.7 % (18.0-42.0); Mean Corpuscular HGB Conc 32.5 g/dL (32-36); Mean Corpuscular Hemoglobin 30.6 pg (27.0-31.0); Mean Corpuscular Volume 94.1 fL (78.0-102.0); Monocytes Absolute Auto 0.64 K/mm3 (0.10-0.90); Monocytes Percent Auto 6.2 % (2.0-11.0); Neutrophils Absolute Auto 5.99 K/mm3 (1.70-7.20); Neutrophils Percent Auto 58.3 % (50.0-70.0); Platelet Count Result 282 K/mm3 (150-420); Red Blood Count 4.58 M/mm3 (4.20-5.40); Red Cell Distribution Width 12.8 % (11.6-14.4); White Blood Count 10.3 K/mm3 (4.8-10.8)
[2025-03-02 17:39] LABS: Alanine Aminotransferase 13 U/L (14-59); Albumin Level 3.7 g/dL (3.4-5.0); Alkaline Phosphatase 101 U/L (46-116); Anion Gap 8 mmol/L (4-12); Aspartate Amino Transferase 15 U/L (15-37); Bilirubin,Total 0.5 mg/dL (0.00-1.00); Blood Urea Nitrogen 19 mg/dL (7-18); Calcium 9.7 mg/dL (8.5-10.1); Carbon Dioxide 26 mmol/L (21-32); Chloride 106 mmol/L (98-108); Estimated Glomerular Filt Rate 48; Glucose 106 mg/dL (70-99); Osmolality Calculated 292 mOsm/kg (285-295); Potassium 4.1 mmol/L (3.5-5.1); Sodium 140 mmol/L (136-145); Thyroid Stimulating Hormone 2.33 uIU/mL (0.36-3.74); Total Protein 7.3 g/dL (6.4-8.2)
[2025-03-02 17:51] LABS: Microalbumin Urine Random < 13.0 mg/L
[2025-03-03 10:01] LABS: Creatinine Urine 148.51 mg/dL (40-278); MALB Creatinine Ratio 8.7 mg/g (0-30)
[2025-03-04 14:03] LABS: Parathyroid Intact 50 pg/mL (16-77)
[2025-03-05 13:08] LABS: Ionized Calcium 5.4 mg/dL (4.7-5.5)
== END 2025-03-02 15:45 | disposition home or self-care (01) ==
LOC: CHSLAB 15:45
PROVIDERS: PCP Family Medicine; Visit Provider Nurse Practitioner Family
DX: R79.89 Other specified abnormal findings of blood chemistry (principal); N18.9 Chronic kidney disease, unspecified; D72.829 Elevated white blood cell count, unspecified; E83.52 Hypercalcemia
CPT/HCPCS: 36415; 80053; 82043; 82330; 83970; 84443; 85025

== ENCOUNTER 2025-09-25 08:16 | Outpatient (CLI) | payer OTHER, SELFPAY ==
--- NOTE | ~2025-09-25 | MR_ITS ---
EXAMINATION: MR cervical spine wo con DATE: 09/25/2025 08:47 INDICATION: Chronic neck pain with radiculopathy both upper extremities. TECHNIQUE: Magnetic resonance imaging (MRI) of the cervical spine was performed without intravenous contrast. Sequences included sagittal T2-weighted FSE, sagittal T2-weighted FS FSE, sagittal T1-weighted FSE, axial MERGE, and axial T2-weighted FSE. COMPARISON: MRI C-spine 02/08/2024. FINDINGS: No acute bony lesions of the cervical vertebrae. Nature of the foramen magnum are normal in the sagittal projection. At C2-3 level, no focal disc herniations. At C3-4 level, degenerative changes with osteophyte complex causing mild to moderate right foraminal narrowing. At L4-5 level, degenerative disc disease with disc osteophyte complex causing moderate by foraminal narrowing. Minimal compromise of thecal sac in the midline with AP diameter measuring 12 mm. C5-6 level, no focal disc lesions. C6-7 and C7-T1 discs are normal. Cervical spinal cord shows no focal lesions. IMPRESSION: 1. No acute bony lesions out cervical vertebrae. 2.Moderate degenerative disc changes predominantly at C4-5 level as described above in detail. Compared with 02/08/2024 the changes are slightly more prominent. 3. Cervical spinal cord shows no focal lesions. Reviewed, dictated and finalized at location [facility] [place] [place] IMPRESSION: 1. No acute bony lesions out cervical vertebrae. 2.Moderate degenerative disc changes predominantly at C4-5 level as described a sandee in detail. Compared with 02/08/2024 the changes are slightly more prominent . 3. Cervical spinal cord shows no focal lesions.
== END 2025-09-25 08:17 | disposition home or self-care (01) ==
PROVIDERS: PCP Family Medicine; Visit Provider Nurse Practitioner Family
DX: M54.12 Radiculopathy, cervical region (principal); M50.30 Other cervical disc degeneration, unspecified cervical region
CPT/HCPCS: 72141

== ENCOUNTER 2025-10-15 10:51 | Outpatient (CLI) | payer OTHER, SELFPAY ==
--- NOTE | ~2025-10-15 | CT_ITS ---
EXAM/PROCEDURE: CT abdomen pelvis w con HISTORY: R10.32 - Left lower quadrant pain COMPARISON: October 13, 2021 TECHNIQUE: IV contrast enhanced CT of the abdomen and pelvis FINDINGS: The bowel gas pattern is nonobstructive with no free air or pneumatosis. Trace amount of free fluid appears to be present in the lower left hemipelvis image 133 series 3 contiguous with moderate to severe diverticular disease in the sigmoid colon. This may represent early or mild diverticulitis. No hydronephrosis. Gallbladder removed. No AAA. No grossly inflamed appendix. Anteflex uterus and adnexal regions unremarkable. Lung bases clear. Moderate size hiatal hernia similar to the previous exam. Heart size normal. Liver spleen pancreas and adrenal glands appear stable. Stomach unremarkable other than the hernia. Bones appear intact. IMPRESSION: Subtle or early sigmoidal diverticulitis possibly present. No acute surgical abnormality identified. Other findings as above. Reviewed, dictated and finalized at location A. [employer]
[2025-10-15 11:17] LABS: Estimated Glomerular Filt Rate 50
--- OUTSIDE RECORDS SUMMARY | 2025-10-15 13:06 | XMS_ITS | Encounter Summary ---
Author Organization [facility] Address [address] [place] [address] Care Team Providers Care Replanting Machine Operator Name Role Phone Misael Ferraro MD Primary Care Provider Unavailab le Encounter Details Date Type Department Care Team (Late st Contact Info) Description 09/24/2000 Outpatient [facility] Primary Care - [address] [place] [address] Devaughn Castro, DO * Social History Tobacco Use Types Packs/Day Years Used Date Smoking Tobacco: Never Assessed Comments Unknown Sex and Gender Information Value Date Recorded Sex Assigned at Not on file Legal Sex Female 2:55 AM MANAGEMENT RECRUITER Gender Identity Not on file Sexual Orientation Not on file documented as of this encounter Plan of Treatment Not on file documented as of this encounter Visit Diagnoses Not on filedocumented in this encounter Care Teams Replanting Machine Operator Relationship Specialty Start Date End Date Misael Ferraro MD PCP - General Family Practice 09/29/12 documented as of this encounter
--- OUTSIDE RECORDS SUMMARY | 2025-10-15 13:06 | XMS_ITS | Encounter Summary ---
Author Organization [facility] Address [address] [place] [address] Care Team Providers Care Automotive Brake Technician Name Role Phone Misael Ferraro MD Primary Care Provider Unavailab le Encounter Details Date Type Department Care Team (Latest Contact Info) Description 04/27/2002 [facility] IDIOPATHIC SCOLIOSIS (Primary Dx) Social History Tobacco Use Types Packs/Day Years Used Date Smoking Tobacco: Never Assessed Comments Unknown Sex and Gender Information Value Date Recorded Sex Assigned at Not on file Legal Sex Female 2:55 AM FORMULA CLERK Gender Identity Not on file Sexual Orientation Not on file documented as of this encounter Plan of Treatment Not on file documented as of this encounter Visit Diagnoses Diagnosis Scoliosis (and kyphoscoliosis), idiopathic- Primary documented in this encounter Care Teams Automotive Brake Technician Relationship Specialty Start Date End Date Misael Ferraro MD PCP - General Family Practice 09/29/12 documented as of this encounter
--- OUTSIDE RECORDS SUMMARY | 2025-10-15 13:06 | XMS_ITS | Encounter Summary ---
Author Organization [facility] Address [address] [place] [address] Care Team Providers Care Drapery Hanger Name Role Phone Misael Ferraro MD Primary Care Provider Unavailab le Encounter Details Date Type Department Care Team (Late st Contact Info) Description 07/16/1999 Outpatient [facility] Primary Care - [address] [place] [phone] Thee Aly, DO NO ADDRESS ON FILE Social History Tobacco Use Types Packs/Day Years Used Date Smoking Tobacco: Never Assessed Comments Unknown Sex and Gender Information Value Date Recorded Sex Assigned at Not on file Legal Sex Female 2:55 AM COMBINER Gender Identity Not on file Sexual Orientation Not on file documented as of this encounter Plan of Treatment Not on file documented as of this encounter Visit Diagnoses Not on filedocumented in this encounter Care Teams Drapery Hanger Relationship Specialty Start Date End Date Misael Ferraro MD PCP - General Family Practice 09/29/12 documented as of this encounter
--- OUTSIDE RECORDS SUMMARY | 2025-10-15 13:06 | XMS_ITS | Clinical Summary ---
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 The mild change in the neck [...] (03/01/2022): Added automatically from request for surgery [id number] History of kidney stones 02/10/2022 Bilateral flank pain 02/10/2022 Nephrolithiasis 01/04/2022 Vitamin D deficiency 01/04/2022 Paradoxical vocal fold motion disorder 9 Assessment & Plan (08/28/2019 1:49 PM CDT): I have recommended laryngeal control therapy here at the [facility] [...] on file Legal Sex Female 2:40 AM ELECTROTYPER APPRENTICE Gender Identity Not on file Sexual Orientation Not on file Last Filed Vital Signs Vital Sign Reading Time Taken Comments Blood Pressure 114/87 02/09/2023 8:08 AM CDT Pulse 74 02/09/2023 8:08 AM CDT Temperature 37 C (98.6 F) 10/13/2022 1:26 PM ELECTROTYPER APPRENTICE Respiratory Rate 18 09/14/2022 4:58 PM ELECTROTYPER APPRENTICE Oxygen Saturation 100% 09/14/2022 11:50 PM ELECTROTYPER APPRENTICE Inhaled Oxygen Concentration - - Weight 64.9 kg (143 lb) 02/09/2023 8:08 AM CDT Height 165.1 cm (5' 5) 02/09/2023 8:08 AM CDT Body Mass Index 23.8 02/09/2023 8:08 AM CDT Plan of Treatment Health Maintenance Due Date Last Done Comments Cervical Cancer Screening 1960 Colon Cancer Screening-Colonoscopy 1960 Depression Screening 1960 Hepatitis C Screening 1960 DTaP/Tdap/Td Vaccine (1 - Tdap) 1971 Hepatitis B Screening 1978 Regular Well Visit/Exam 18-64 1978 Pneumococcal vaccine <65 (1 of 2 - PCV) 1979 Zoster Vaccine (1 of 2) 2010 Breast Cancer Screening-Mammogram 04/28/2017 016 Influenza Vaccine (#1) 2025 Medical Devices Explanted Type Area Provider Network Mgr Device Identifier Shelf Expiration Date Model / Serial / Lot [employer] Universa 6fr 26cm Radiopaque Positioner Monofilament Tether 2 [id number] - [id number] Implanted:Qty: 1 on 03/16/2022 by Manav Iqbal MD at [facility] Explanted:Qty: 1 on 03/31/2022 by Manav Iqbal MD Left: Ureter [employer] 01/20/2025 [id number] / / [id number] [employer] Jagruti Contour 6fr 24cm Large Inner Lumen Low Profile Bladder Jori Taper Latex Free 180-222 - [id number] Implanted:Qty: 1 on 04/05/2022 by Nadeem Zhang MD at [facility] Explanted:Qty: 1 on 04/21/2022 by Nadeem Zhang MD Left: Glenn Chamate Jagruti 12/23/2024 180-222 / / [id number] Procedures Procedure Name Priority Date/Time Associated Diagnosis [...] agrees with it. ACC# Date Time Exam [id number] Apr 28, 2016 14:42:00 [place] [id number] Diag Mammogram Bilateral Technologist(s): Akosua Springer; ; [id number] Apr 28, 2016 14:42:00 [facility] 86[address] Dig Breast Garrison Andrzej Technologist(s): Akosua Springer; ; ACC# Date Time Exam [id number] Apr 28, 2016 14:42:00 [facility] 95274 Diag Mammogram Bilateral Technologist(s): Akosua Springer; ; [id number] Apr 28, 2016 14:42:00 [place] [id number] Dig Breast Garrison Andrzej Technologist(s): Akosua Springer; [...] obtained. Computer Aided Detection was performed with Oncovision.3 version 9.3. Digital breast tomosynthesis was performed [...] DOWNING M.D. on Apr 28 2016 3:47P [id number] Procedure Note Provider, MD Radha - 02/19/2017 TAE DOWNING M.D. LEANN PARK M.D. FINAL REPORT The radiology attending physician has personally reviewed this study, and has reviewed and/or edited this written report and agrees with it. ACC# Date Time Exam [id number] Apr 28, 2016 14:42:00 [facility] 71071 Diag Mammogram Bilateral Technologist(s): Akosua Springer; ; [id number] Apr 28, 2016 14:42:00 [facility] 03743 Dig Breast Garrison Andrzej Technologist(s): Akosua Springer; ; ACC# Date Time Exam [id number] Apr 28, 2016 14:42:00 [facility] 94206 Diag Mammogram Bilateral Technologist(s): Akosua Springer; ; [id number] Apr 28, 2016 14:42:00 [facility] 86344 Dig Breast Garrison Andrzej Technologist(s): Akosua Springer; [...] obtained. Computer Aided Detection was performed with Oncovision.3 version 9.3. Digital breast tomosynthesis was performed [...] DOWNING M.D. on Apr 28 2016 3:47P [id number] Historical Provider MD SOLITARIO MAMMO PROCEDURES Deana l Result from Last 3 Months or Most Recently Relevant to Health Maintenance Insurance * Guarantor: Tamra Armijo Account Type Relation to Patient Date of Phone Billing Address Personal/Family Self 1960 [phone] (Work) [address] [place] [address] [employer] OPEN ACCESS [facility] Care Teams Propagator Laborer Relationship Specialty Start Date End Date Marifer Gupta NP [address] [place] [address] PCP - General Nurse Practitioner 01/04/22 Aroldo Connell III, MD [address] [place] [address] Referring Physician Neurology 11/11/22
--- OUTSIDE RECORDS SUMMARY | 2025-10-15 13:06 | XMS_ITS | Encounter Summary ---
Author Organization [facility] Address [address] [place] [address] Care Team Providers Care Ballpoint Pen Cartridge Tester Name Role Phone Misael Ferraro MD Primary Care Provider Unavailab le Encounter Details Date Type Department Care Team (Late st Contact Info) Description 11/04/2000 Outpatient [facility] Primary Care - [address] [place] [phone] Thee Aly, DO NO ADDRESS ON FILE Social History Tobacco Use Types Packs/Day Years Used Date Smoking Tobacco: Never Assessed Comments Unknown Sex and Gender Information Value Date Recorded Sex Assigned at Not on file Legal Sex Female 2:55 AM CABLE STRETCHER AND TESTER Gender Identity Not on file Sexual Orientation Not on file documented as of this encounter Plan of Treatment Not on file documented as of this encounter Visit Diagnoses Not on filedocumented in this encounter Care Teams Ballpoint Pen Cartridge Tester Relationship Specialty Start Date End Date Misael Ferraro MD PCP - General Family Practice 09/29/12 documented as of this encounter
--- OUTSIDE RECORDS SUMMARY | 2025-10-15 13:06 | XMS_ITS | Encounter Summary ---
Author Organization [facility] Address [address] [place] [address] Care Team Providers Care Care Professional Name Role Phone Misael Ferraro MD Primary Care Provider Unavailab le Encounter Details Date Type Department Care Team (Late st Contact Info) Description 06/15/2006 Outpatient [facility] Primary Care [address] [place] [phone] Natalie Matute MD NO ADDRESS ON FILE Social History Tobacco Use Types Packs/Day Years Used Date Smoking Tobacco: Never Assessed Comments Unknown Sex and Gender Information Value Date Recorded Sex Assigned at Not on file Legal Sex Female 2:55 AM CONFERENCE SERVICES COORDINATOR Gender Identity Not on file Sexual Orientation Not on file documented as of this encounter Plan of Treatment Not on file documented as of this encounter Visit Diagnoses Not on filedocumented in this encounter Care Teams Care Professional Relationship Specialty Start Date End Date Misael Ferraro MD PCP - General Family Practice 09/29/12 documented as of this encounter
--- OUTSIDE RECORDS SUMMARY | 2025-10-15 13:06 | XMS_ITS | Encounter Summary ---
Author Organization [facility] Address [address] [place] [address] Care Team Providers Care Spanish Literature Professor Name Role Phone Misael Ferraro MD Primary Care Provider Unavailab le Encounter Details Date Type Department Care Team (Latest Contact Info) Description 02/[facility]2003 [facility] SCREENING MAMM-MAILG NEOPL-OTHER (Primary Dx) Social History Tobacco Use Types Packs/Day Years Used Date Smoking Tobacco: Never Assessed Comments Unknown Sex and Gender Information Value Date Recorded Sex Assigned at Not on file Legal Sex Female 2:55 AM CLIMATOLOGY TEACHER Gender Identity Not on file Sexual Orientation Not on file documented as of this encounter Plan of Treatment Not on file documented as of this encounter Visit Diagnoses Diagnosis Other screening mammogram- Primary documented in this encounter Care Teams Spanish Literature Professor Relationship Specialty Start Date End Date Misael Ferraro MD PCP - General Family Practice 09/29/12 documented as of this encounter
--- OUTSIDE RECORDS SUMMARY | 2025-10-15 13:06 | XMS_ITS | Encounter Summary ---
Author Organization [facility] Address [address] [place] [address] Care Team Providers Care Analytical Technician Name Role Phone Misael Ferraro MD Primary Care Provider Unavailab le Encounter Details Date Type Department Care Team (Latest Contact Info) Description 03/17[facility] Cough (Primary Dx) Social History Tobacco Use Types Packs/Day Years Used Date Smoking Tobacco: Never Assessed Comments Unknown Sex and Gender Information Value Date Recorded Sex Assigned at Not on file Legal Sex Female 2:55 AM BATTERY CONTAINER FINISHING HAND Gender Identity Not on file Sexual Orientation Not on file documented as of this encounter Plan of Treatment Not on file documented as of this encounter Visit Diagnoses Diagnosis Cough- Primary documented in this encounter Care Teams Analytical Technician Relationship Specialty Start Date End Date Misael Ferraro MD PCP - General Family Practice 09/29/12 documented as of this encounter
--- OUTSIDE RECORDS SUMMARY | 2025-10-15 13:06 | XMS_ITS | Encounter Summary ---
Author Organization [facility] Address [address] [place] [address] Care Team Providers Care Instrumentation Instructor Name Role Phone Misael Ferraro MD Primary Care Provider Unavailab le Encounter Details Date Type Department Care Team (Late st Contact Info) Description 03/17/2000 Outpatient [facility] Primary Care [address] [place] [phone] Thee Aly, DO NO ADDRESS ON FILE Social History Tobacco Use Types Packs/Day Years Used Date Smoking Tobacco: Never Assessed Comments Unknown Sex and Gender Information Value Date Recorded Sex Assigned at Not on file Legal Sex Female 2:55 AM MULTIPLE EFFECT EVAPORATOR OPERATOR Gender Identity Not on file Sexual Orientation Not on file documented as of this encounter Plan of Treatment Not on file documented as of this encounter Visit Diagnoses Not on filedocumented in this encounter Care Teams Instrumentation Instructor Relationship Specialty Start Date End Date Misael Ferraro MD PCP - General Family Practice 09/29/12 documented as of this encounter
--- OUTSIDE RECORDS SUMMARY | 2025-10-15 13:06 | XMS_ITS | Encounter Summary ---
Author Organization [facility] Address 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
--- OUTSIDE RECORDS SUMMARY | 2025-10-15 13:06 | XMS_ITS | Encounter Summary ---
Author Organization [facility] Address [address] [place] [address] Care Team Providers Care Structural Draftsman Name Role Phone Misael Ferraro MD Primary Care Provider Unavailab le Encounter Details Date Type Department Care Team (Late st Contact Info) Description 07/23/2003 Outpatient [facility] Primary Care [address] [place] [phone] Thee Aly, DO NO ADDRESS ON FILE Social History Tobacco Use Types Packs/Day Years Used Date Smoking Tobacco: Never Assessed Comments Unknown Sex and Gender Information Value Date Recorded Sex Assigned at Not on file Legal Sex Female 2:55 AM CABIN SERVICE AGENT Gender Identity Not on file Sexual Orientation Not on file documented as of this encounter Plan of Treatment Not on file documented as of this encounter Visit Diagnoses Not on filedocumented in this encounter Care Teams Structural Draftsman Relationship Specialty Start Date End Date Misael Ferraro MD PCP - General Family Practice 09/29/12 documented as of this encounter
--- OUTSIDE RECORDS SUMMARY | 2025-10-15 13:06 | XMS_ITS | Encounter Summary ---
Author Organization [facility] Address [address] [place] [address] Care Team Providers Care Blade Grinder Name Role Phone Misael Ferraro MD Primary Care Provider Unavailab le Encounter Details Date Type Department Care Team (Late st Contact Info) Description 08/14/2003 Outpatient [facility] Primary Care [address] [place] [phone] Natalie Matute MD NO ADDRESS ON FILE Social History Tobacco Use Types Packs/Day Years Used Date Smoking Tobacco: Never Assessed Comments Unknown Sex and Gender Information Value Date Recorded Sex Assigned at Not on file Legal Sex Female 2:55 AM CERTIFIED PROFESSIONAL ERGONOMIST Gender Identity Not on file Sexual Orientation Not on file documented as of this encounter Plan of Treatment Not on file documented as of this encounter Visit Diagnoses Not on filedocumented in this encounter Care Teams Blade Grinder Relationship Specialty Start Date End Date Misael Ferraro MD PCP - General Family Practice 09/29/12 documented as of this encounter
--- OUTSIDE RECORDS SUMMARY | 2025-10-15 13:06 | XMS_ITS | Encounter Summary ---
Author Organization [facility] Address [address] [place] [address] Care Team Providers Care Rough Rice Grader Name Role Phone Misael Ferraro MD Primary Care Provider Unavailab le Encounter Details Date Type Department Care Team (Late st Contact Info) Description 03/02/2004 Outpatient [facility] Primary Care - [address] [place] [phone] Thee Aly, DO NO ADDRESS ON FILE Social History Tobacco Use Types Packs/Day Years Used Date Smoking Tobacco: Never Assessed Comments Unknown Sex and Gender Information Value Date Recorded Sex Assigned at Not on file Legal Sex Female 2:55 AM WORD PROCESSOR TECHNICIAN Gender Identity Not on file Sexual Orientation Not on file documented as of this encounter Plan of Treatment Not on file documented as of this encounter Visit Diagnoses Not on filedocumented in this encounter Care Teams Rough Rice Grader Relationship Specialty Start Date End Date Misael Ferraro MD PCP - General Family Practice 09/29/12 documented as of this encounter
--- OUTSIDE RECORDS SUMMARY | 2025-10-15 13:06 | XMS_ITS | Encounter Summary ---
Author Organization [facility] Address [address] [place] [address] Care Team Providers Care Log Carrier Operator Name Role Phone Misael Ferraro MD Primary Care Provider Unavailab le Encounter Details Date Type Department Care Team (Late st Contact Info) Description 09/11/2004 Outpatient Historical [facility] INVERTED BLOCK OPERATOR - [address] [place] [phone] Booker Morrell MD [address] [place] [address] [place] [phone] Social History Tobacco Use Types Packs/Day Years Used Date Smoking Tobacco: Never Assessed Comments Unknown Sex and Gender Information Value Date Recorded Sex Assigned at Not on file Legal Sex Female 2:55 AM CHARGEBACK SPECIALIST Gender Identity Not on file Sexual Orientation Not on file documented as of this encounter Plan of Treatment Not on file documented as of this encounter Visit Diagnoses Not on filedocumented in this encounter Care Teams Log Carrier Operator Relationship Specialty Start Date End Date Misael Ferraro MD PCP - General Family Practice 09/29/12 documented as of this encounter
--- OUTSIDE RECORDS SUMMARY | 2025-10-15 13:06 | XMS_ITS | Encounter Summary ---
Author Organization [facility] Address [address] [place] [address] Care Team Providers Care Prison Warden Name Role Phone Misael Ferraro MD Primary Care Provider Unavailab le Encounter Details Date Type Department Care Team (Late st Contact Info) Description 05/16/2001 Outpatient [facility] Primary Care [address] [place] [phone] Thee Aly, DO NO ADDRESS ON FILE Social History Tobacco Use Types Packs/Day Years Used Date Smoking Tobacco: Never Assessed Comments Unknown Sex and Gender Information Value Date Recorded Sex Assigned at Not on file Legal Sex Female 2:55 AM PATHOLOGY LABORATORY AIDE Gender Identity Not on file Sexual Orientation Not on file documented as of this encounter Plan of Treatment Not on file documented as of this encounter Visit Diagnoses Not on filedocumented in this encounter Care Teams Prison Warden Relationship Specialty Start Date End Date Misael Ferraro MD PCP - General Family Practice 09/29/12 documented as of this encounter
--- OUTSIDE RECORDS SUMMARY | 2025-10-15 13:06 | XMS_ITS | Encounter Summary ---
Author Organization [facility] Address 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
--- OUTSIDE RECORDS SUMMARY | 2025-10-15 13:06 | XMS_ITS | Clinical Summary ---
Author Organization [facility] Address [facility] [place] [address] Care Team Providers Care High School Science Teacher Name Role Phone Unavailable Primary Care Provider [...] Comments Blood Pressure 138/72 11/29/2013 4:51 PM HEEL WHEELER Pulse - - Temperature - - Respiratory Rate - - Oxygen Saturation - - Inhaled Oxygen Concentration - - Weight 77.1 kg (170 lb) 11/29/2013 4:51 PM HEEL WHEELER Height 167.6 cm (5' 6) 11/29/2013 4:51 PM HEEL WHEELER Body Mass Index 27.44 11/29/2013 4:51 PM HEEL WHEELER Plan of Treatment Health Maintenance Due Date [...] of 2) 2010 COVID-19 Vaccine ( - 2024-2 6 season) 2025 Influenza Adult (#1) 2025 RSV Immunization or 60+ Years (1 - 1-dose 75+ series) 2035 Hepatitis A Vaccines Aged Out No long er eligible based on patient's age to complete this topic Meningococcal B Vaccine Aged Out No l onger eligible based on patient's age to complete this topic Meningococcal Vaccine Aged Out No red rory eligible based on patient's age to complete this topic RSV Immunizations Under 20 Months Aged Out No longer eligible based on patient's age to complete this topic
--- OUTSIDE RECORDS SUMMARY | 2025-10-15 13:06 | XMS_ITS | Encounter Summary ---
Author Organization [facility] Address [address] [place] [address] Care Team Providers Care Glass Blowing Lathe Operator Name Role Phone Misael Ferraro MD Primary Care Provider Unavailab le Encounter Details Date Type Department Care Team (Late st Contact Info) Description 07/23/2003 Outpatient [facility] Primary Care [address] [place] [phone] Thee Aly, DO NO ADDRESS ON FILE Social History Tobacco Use Types Packs/Day Years Used Date Smoking Tobacco: Never Assessed Comments Unknown Sex and Gender Information Value Date Recorded Sex Assigned at Not on file Legal Sex Female 2:55 AM PULP BEATER Gender Identity Not on file Sexual Orientation Not on file documented as of this encounter Plan of Treatment Not on file documented as of this encounter Visit Diagnoses Not on filedocumented in this encounter Care Teams Glass Blowing Lathe Operator Relationship Specialty Start Date End Date Misael Ferraro MD PCP - General Family Practice 09/29/12 documented as of this encounter
--- OUTSIDE RECORDS SUMMARY | 2025-10-15 13:06 | XMS_ITS | Encounter Summary ---
Author Organization [facility] Address [address] [place] [address] Care Team Providers Care Ladle Puller Name Role Phone Misael Ferraro MD Primary Care Provider Unavailab le Encounter Details Date Type Department Care Team (Late st Contact Info) Description 03/23/2004 Outpatient [facility] Primary Care [address] [place] [phone] Thee Aly, DO NO ADDRESS ON FILE Social History Tobacco Use Types Packs/Day Years Used Date Smoking Tobacco: Never Assessed Comments Unknown Sex and Gender Information Value Date Recorded Sex Assigned at Not on file Legal Sex Female 2:55 AM SAND MIXER 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
--- OUTSIDE RECORDS SUMMARY | 2025-10-15 13:06 | XMS_ITS | Encounter Summary ---
Author Organization [facility] Address [address] [place] [address] Phone Care Team Providers Care Onboarding Specialist Name Role Phone Marifer Gupta NP Primary Care Provide r Becki FENTON MD, Aroldo Cruz Unavailable Reason for Visit * Reason Onset Date Comments Appointment 07/02/2022 Encounter Details Date Type Department Care Team (Late st Contact Info) Description 07/02/[address] [facility] [address] [facility] [address] [place] [address] Andrew Willard MD [address] [facility] [address] [place], [place] [id number] Appointment Social History Tobacco Use Types Packs/Day [...] on file Legal Sex Female 2:40 AM PROGRAM ADMIN Gender Identity Not on file Sexual Orientation Not on file documented as of this encounter Plan of Treatment Not on file documented as of this encounter Visit Diagnoses Not on filedocumented in this encounter Care Teams Onboarding Specialist Relationship Specialty Start Date End Date Marifer Gupta NP [address] [place] [address] PCP - General Nurse Practitioner 01/04/22 Aroldo Connell III, MD [address] [place] [address] Referring Physician Neurology 11/11/22 documented as of this encounter
--- OUTSIDE RECORDS SUMMARY | 2025-10-15 13:06 | XMS_ITS | Encounter Summary ---
Author Organization [facility] Address [address] [place] [address] Care Team Providers Care Returned Goods Receiving Clerk Name Role Phone Misael Ferraro MD Primary Care Provider Unavailab le Encounter Details Date Type Department Care Team (Late st Contact Info) Description 12/16/1998 Outpatient [facility] Primary Care - [address] [place] [phone] Thee Aly, DO NO ADDRESS ON FILE Social History Tobacco Use Types Packs/Day Years Used Date Smoking Tobacco: Never Assessed Comments Unknown Sex and Gender Information Value Date Recorded Sex Assigned at Not on file Legal Sex Female 2:55 AM TABLET TESTER Gender Identity Not on file Sexual Orientation Not on file documented as of this encounter Plan of Treatment Not on file documented as of this encounter Visit Diagnoses Not on filedocumented in this encounter Care Teams Returned Goods Receiving Clerk Relationship Specialty Start Date End Date Misael Ferraro MD PCP - General Family Practice 09/29/12 documented as of this encounter
--- OUTSIDE RECORDS SUMMARY | 2025-10-15 13:06 | XMS_ITS | Encounter Summary ---
Author Organization [facility] Address [address] [place] [address] Care Team Providers Care Senior Regulatory Affairs Specialist Name Role Phone Misael Ferraro MD Primary Care Provider Unavailab le Encounter Details Date Type Department Care Team (Late st Contact Info) Description 02/24/2007 Outpatient [facility] Primary Care [address] [place] [phone] Thee Aly, DO NO ADDRESS ON FILE Social History Tobacco Use Types Packs/Day Years Used Date Smoking Tobacco: Never Assessed Comments Unknown Sex and Gender Information Value Date Recorded Sex Assigned at Not on file Legal Sex Female 2:55 AM SWEET GOODS MACHINE OPERATOR Gender Identity Not on file Sexual Orientation Not on file documented as of this encounter Plan of Treatment Not on file documented as of this encounter Visit Diagnoses Not on filedocumented in this encounter Care Teams Senior Regulatory Affairs Specialist Relationship Specialty Start Date End Date Misael Ferraro MD PCP - General Family Practice 09/29/12 documented as of this encounter
--- OUTSIDE RECORDS SUMMARY | 2025-10-15 13:06 | XMS_ITS | Encounter Summary ---
Author Organization [facility] Address [address] [place] [address] Care Team Providers Care Perioperative Assistant Name Role Phone Misael Ferraro MD Primary Care Provider Unavailab le Encounter Details Date Type Department Care Team (Latest Contact Info) Description 09/17/2005 [facility] FILE JOINT PAIN-L/LEG (Primary Dx) Social History Tobacco Use Types Packs/Day Years Used Date Smoking Tobacco: Never Assessed Comments Unknown Sex and Gender Information Value Date Recorded Sex Assigned at Not on file Legal Sex Female 2:55 AM BUSINESS EDITOR Gender Identity Not on file Sexual Orientation Not on file documented as of this encounter Plan of Treatment Not on file documented as of this encounter Visit Diagnoses Diagnosis Pain in joint, lower leg- Primary documented in this encounter Care Teams Perioperative Assistant Relationship Specialty Start Date End Date Misael Ferraro MD PCP - General Family Practice 09/29/12 documented as of this encounter
--- OUTSIDE RECORDS SUMMARY | 2025-10-15 13:06 | XMS_ITS | Encounter Summary ---
Author Organization [facility] Address [address] [place] [address] Care Team Providers Care Iron Bender Name Role Phone Misael Ferraro MD Primary Care Provider Unavailab le Encounter Details Date Type Department Care Team (Late st Contact Info) Description 09/04/2004 Outpatient Historical [facility] SUPERVISOR TOY ASSEMBLY - [address] [place] [phone] Booker Morrell MD [address] [place] [address] [place] [phone] Social History Tobacco Use Types Packs/Day Years Used Date Smoking Tobacco: Never Assessed Comments Unknown Sex and Gender Information Value Date Recorded Sex Assigned at Not on file Legal Sex Female 2:55 AM PATROL MAN Gender Identity Not on file Sexual Orientation Not on file documented as of this encounter Plan of Treatment Not on file documented as of this encounter Visit Diagnoses Not on filedocumented in this encounter Care Teams Iron Bender Relationship Specialty Start Date End Date Misael Ferraro MD PCP - General Family Practice 09/29/12 documented as of this encounter
--- OUTSIDE RECORDS SUMMARY | 2025-10-15 13:06 | XMS_ITS | Encounter Summary ---
Author Organization [facility] Address [address] [place] [address] Care Team Providers Care Oral Hygienist Name Role Phone Misael Ferraro MD Primary Care Provider Unavailab le Encounter Details Date Type Department Care Team (Late st Contact Info) Description 04/27/2002 Outpatient [facility] Primary Care [address] [place] [phone] Thee Aly, DO NO ADDRESS ON FILE Social History Tobacco Use Types Packs/Day Years Used Date Smoking Tobacco: Never Assessed Comments Unknown Sex and Gender Information Value Date Recorded Sex Assigned at Not on file Legal Sex Female 2:55 AM LICENSED FUNERAL DIRECTOR Gender Identity Not on file Sexual Orientation Not on file documented as of this encounter Plan of Treatment Not on file documented as of this encounter Visit Diagnoses Not on filedocumented in this encounter Care Teams Oral Hygienist Relationship Specialty Start Date End Date Misael Ferraro MD PCP - General Family Practice 09/29/12 documented as of this encounter
--- OUTSIDE RECORDS SUMMARY | 2025-10-15 13:06 | XMS_ITS | Encounter Summary ---
Author Organization [facility] Address [address] [place] [address] Care Team Providers Care Purchasing Internship Name Role Phone Misael Ferraro MD Primary Care Provider Unavail le Encounter Details Date Type Department Care Team (Latest Contact Info) Description 02/24/2007 [facility] Abdominal Pain, Right Lower Quadrant (Primary Dx) Social History Tobacco Use Types Packs/Day Years Used Date Smoking Tobacco: Never Assessed Comments Unknown Sex and Gender Information Value Date Recorded Sex Assigned at Not on file Legal Sex Female 2:55 AM SCHOOL PSYCHOLOGIST ASSISTANT Gender Identity Not on file Sexual [...] DO URINE ORDERABLES Edited Performing Organization Address [facility] de Phone Number INTERFACE SYSTEM Refer to [...] and non- Americans is available on the [facility] Intranet at: [email or web address] Select: Lab Policies and Procedures Select: Reference Ranges - GFR 02/24/2007 10:2 6 AM CDT Thee Aly DO CHEMISTRY ORDERABLES Edited Performing Organization Address [facility] de Phone Number INTERFACE SYSTEM Refer to clinic/hospital department documented in this encounter Visit Diagnoses Diagnosis Abdominal pain, right lower quadrant- Primary documented in this encounter Care Teams Purchasing Internship Relationship Specialty Start Date End Date Misael Ferraro MD PCP - General Family Practice 09/29/12 documented as of this encounter
--- OUTSIDE RECORDS SUMMARY | 2025-10-15 13:06 | XMS_ITS | Encounter Summary ---
Author Organization [facility] Address [address] [place] [address] Care Team Providers Care Mirror Specialist Name Role Phone Misael Ferraro MD Primary Care Provider Unavailab le Encounter Details Date Type Department Care Team (Late st Contact Info) Description 11/13/2004 Outpatient Historical [facility] HELPER/DRIVER - [address] [place] [phone] Booker Morrell MD [address] [place] [address] [place] [phone] Social History Tobacco Use Types Packs/Day Years Used Date Smoking Tobacco: Never Assessed Comments Unknown Sex and Gender Information Value Date Recorded Sex Assigned at Not on file Legal Sex Female 2:55 AM READERS' ADVISORY SERVICE LIBRARIAN Gender Identity Not on file Sexual Orientation Not on file documented as of this encounter Plan of Treatment Not on file documented as of this encounter Visit Diagnoses Not on filedocumented in this encounter Care Teams Mirror Specialist Relationship Specialty Start Date End Date Misael Ferraro MD PCP - General Family Practice 09/29/12 documented as of this encounter
--- OUTSIDE RECORDS SUMMARY | 2025-10-15 13:06 | XMS_ITS | Encounter Summary ---
Author Organization [facility] Address [address] [place] [address] Care Team Providers Care Coating Manager Name Role Phone Misael Ferraro MD Primary Care Provider Unavailab le Encounter Details Date Type Department Care Team (Late st Contact Info) Description 06/13/2001 Outpatient [facility] Primary Care [address] [place] [phone] Thee Aly, DO NO ADDRESS ON FILE Social History Tobacco Use Types Packs/Day Years Used Date Smoking Tobacco: Never Assessed Comments Unknown Sex and Gender Information Value Date Recorded Sex Assigned at Not on file Legal Sex Female 2:55 AM SEISMIC OBSERVER Gender Identity Not on file Sexual Orientation Not on file documented as of this encounter Plan of Treatment Not on file documented as of this encounter Visit Diagnoses Not on filedocumented in this encounter Care Teams Coating Manager Relationship Specialty Start Date End Date Misael Ferraro MD PCP - General Family Practice 09/29/12 documented as of this encounter
--- OUTSIDE RECORDS SUMMARY | 2025-10-15 13:06 | XMS_ITS | Encounter Summary ---
Author Organization [facility] Address [address] [place] [address] Care Team Providers Care Loan Expeditor Name Role Phone Misael Ferraro MD Primary Care Provider Unavailab le Encounter Details Date Type Department Care Team (Late st Contact Info) Description 02/06/1999 Outpatient [facility] Primary Care - [address] [place] [phone] Thee Aly, DO NO ADDRESS ON FILE Social History Tobacco Use Types Packs/Day Years Used Date Smoking Tobacco: Never Assessed Comments Unknown Sex and Gender Information Value Date Recorded Sex Assigned at Not on file Legal Sex Female 2:55 AM SHEET MUSIC SALESPERSON Gender Identity Not on file Sexual Orientation Not on file documented as of this encounter Plan of Treatment Not on file documented as of this encounter Visit Diagnoses Not on filedocumented in this encounter Care Teams Loan Expeditor Relationship Specialty Start Date End Date Misael Ferraro MD PCP - General Family Practice 09/29/12 documented as of this encounter
--- OUTSIDE RECORDS SUMMARY | 2025-10-15 13:06 | XMS_ITS | Encounter Summary ---
Author Organization [facility] Address [address] [place] [address] Care Team Providers Care Dean Of Admissions Name Role Phone Misael Ferraro MD Primary Care Provider Unavailab le Encounter Details Date Type Department Care Team (Late st Contact Info) Description 07/12/2000 Outpatient [facility] Primary Care [address] [place] [phone] Thee Aly, DO NO ADDRESS ON FILE Social History Tobacco Use Types Packs/Day Years Used Date Smoking Tobacco: Never Assessed Comments Unknown Sex and Gender Information Value Date Recorded Sex Assigned at Not on file Legal Sex Female 2:55 AM RAILROAD PASSENGER AGENT Gender Identity Not on file Sexual Orientation Not on file documented as of this encounter Plan of Treatment Not on file documented as of this encounter Visit Diagnoses Not on filedocumented in this encounter Care Teams Dean Of Admissions Relationship Specialty Start Date End Date Misael Ferraro MD PCP - General Family Practice 09/29/12 documented as of this encounter
--- OUTSIDE RECORDS SUMMARY | 2025-10-15 13:06 | XMS_ITS | Clinical Summary ---
Author Organization [facility] Address [address] [place] [address] Care Team Providers Care Paginator Name Role Phone Víctor Thompson MD Primary Care Provider [phone] Source Comments [facility],non-owned Affiliates and Associated Physician Practices is amultiple site organization consisting of ambulatory clinics and hospital sitesin [place], [place], [place] and [place]. This disclosure is being madepursuant to the Care Everywhere program and may not contain all information available regarding this patient. 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 Gender Identity Not on file Sexual [...] 9:32 AM CDT Height 162.6 cm (5' 4) 08/16/2019 9:32 AM CDT Body Mass Index [...] SCREENING 1960 LIPID TESTING 1960 MAMMOGRAM 1960 HIV SCREENING 1975 HEPATITIS C SCREENING 12/05/1978 DTAP/TDAP/TD VACCINES (1 - Tdap) 1979 PAP SMEAR 1981 PNEUMOCOCCAL VACCINE 50+ (1 of 1 - PCV) 2010 ZOSTER VACCINE (1 of 2) 2010 SCREENING FOR DIABETES 08/16/2019 DEPRESSION SCREENING 10/31/2024 COVID-19 VACCINE (1 - 2024-2 6 season) 2025 INFLUENZA VACCINE (#1) 2025 Respiratory Syncytial Virus (RSV) Vaccine Pt: [...] complete this topic Insurance [employer] Care Teams Paginator Relationship Specialty Start Date End Date Víctor Thompson MD [address] [place] [address] PCP - General 10/29/19
--- OUTSIDE RECORDS SUMMARY | 2025-10-15 13:06 | XMS_ITS | Encounter Summary ---
Author Organization [facility] Address 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
--- OUTSIDE RECORDS SUMMARY | 2025-10-15 13:06 | XMS_ITS | Encounter Summary ---
Author Organization [facility] Address [address] [place] [address] Care Team Providers Care Senior Planner Name Role Phone Misael Ferraro MD Primary Care Provider Unavailab le Encounter Details Date Type Department Care Team (Late st Contact Info) Description 03/06/1999 Outpatient [facility] Primary Care - [address] [place] [phone] Thee Aly, DO NO ADDRESS ON FILE Social History Tobacco Use Types Packs/Day Years Used Date Smoking Tobacco: Never Assessed Comments Unknown Sex and Gender Information Value Date Recorded Sex Assigned at Not on file Legal Sex Female 2:55 AM EAP CONSULTANT Gender Identity Not on file Sexual Orientation Not on file documented as of this encounter Plan of Treatment Not on file documented as of this encounter Visit Diagnoses Not on filedocumented in this encounter Care Teams Senior Planner Relationship Specialty Start Date End Date Misael Ferraro MD PCP - General Family Practice 09/29/12 documented as of this encounter
--- OUTSIDE RECORDS SUMMARY | 2025-10-15 13:06 | XMS_ITS | Encounter Summary ---
Author Organization [facility] Address 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
--- OUTSIDE RECORDS SUMMARY | 2025-10-15 13:06 | XMS_ITS | Encounter Summary ---
Author Organization [facility] Address 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
--- OUTSIDE RECORDS SUMMARY | 2025-10-15 13:06 | XMS_ITS | Encounter Summary ---
Author Organization [facility] Address 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
--- OUTSIDE RECORDS SUMMARY | 2025-10-15 13:06 | XMS_ITS | Encounter Summary ---
Author Organization [facility] Address [address] [place] [address] Care Team Providers Care C Developer Name Role Phone Misael Ferraro MD Primary Care Provider Unavailab le Encounter Details Date Type Department Care Team (Late st Contact Info) Description 08/24/2004 Outpatient [facility] Primary Care [address] [place] [phone] Natalie Matute MD NO ADDRESS ON FILE Social History Tobacco Use Types Packs/Day Years Used Date Smoking Tobacco: Never Assessed Comments Unknown Sex and Gender Information Value Date Recorded Sex Assigned at Not on file Legal Sex Female 2:55 AM ONLINE MARKETING SPECIALIST Gender Identity Not on file Sexual Orientation Not on file documented as of this encounter Plan of Treatment Not on file documented as of this encounter Visit Diagnoses Not on filedocumented in this encounter Care Teams C Developer Relationship Specialty Start Date End Date Misael Ferraro MD PCP - General Family Practice 09/29/12 documented as of this encounter
--- OUTSIDE RECORDS SUMMARY | 2025-10-15 13:06 | XMS_ITS | Clinical Summary ---
Author Organization [employer] [facility] Address [address] [place] [address] Phone Care Team Providers Care Certified Financial Planner Name Role Phone Misael Ferraro MD [...] on file Legal Sex Female 2:55 AM TEXTILE BAG SEWER Gender Identity Not on file Sexual Orientation Not on file Last Filed Vital Signs Vital Sign Reading Time Taken Comments Blood Pressure 140/82 09/29/2012 1:31 PM TEXTILE BAG SEWER Pulse - - Temperature 36.8 C (98.3 F) 09/29/2012 1:31 PM TEXTILE BAG SEWER Respiratory Rate - - Oxygen Saturation - - Inhaled Oxygen Concentration - - Weight 81.6 kg (180 lb) 09/29/2012 1:31 PM TEXTILE BAG SEWER Height 166.4 cm (5' 5.5) 09/29/2012 1:31 PM TEXTILE BAG SEWER Body Mass Index 29.5 09/29/2012 1:31 PM TEXTILE BAG SEWER Plan of Treatment Health Maintenance Due Date [...] (1 of 2) 2010 INFLUENZA VACCINE (#1) 2025 RSV VACCINE (60+ or ) (1 - 1-dose 75+ series) [email or web address] [facility] Care Teams Certified Financial Planner Relationship Specialty Start Date End Date Misael Ferraro MD PCP - General Family Practice 09/29/12
--- OUTSIDE RECORDS SUMMARY | 2025-10-15 13:06 | XMS_ITS | Encounter Summary ---
Author Organization [facility] Address 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
--- OUTSIDE RECORDS SUMMARY | 2025-10-15 13:06 | XMS_ITS | Encounter Summary ---
Author Organization [facility] Address [facility] [place] [address] Care Team Providers Care Manager Skilled Name Role Phone Unavailable Primary Care Provider Unavailabl e Encounter Details Date Type Department Care Team (Latest Contact Info) Description 09/05/2018 Abstract [facility] , Generic Conversion, Social History [...]
--- OUTSIDE RECORDS SUMMARY | 2025-10-15 13:06 | XMS_ITS | Encounter Summary ---
Author Organization [facility] Address [address] [place] [address] Care Team Providers Care Steel Analyst Name Role Phone Misael Ferraro MD Primary Care Provider Unavailab le Encounter Details Date Type Department Care Team (Late st Contact Info) Description 12/21/2002 Outpatient [facility] Primary Care [address] [place] [phone] Thee Aly, DO NO ADDRESS ON FILE Social History Tobacco Use Types Packs/Day Years Used Date Smoking Tobacco: Never Assessed Comments Unknown Sex and Gender Information Value Date Recorded Sex Assigned at Not on file Legal Sex Female 2:55 AM MANAGER COMMUNICATION Gender Identity Not on file Sexual Orientation Not on file documented as of this encounter Plan of Treatment Not on file documented as of this encounter Visit Diagnoses Not on filedocumented in this encounter Care Teams Steel Analyst Relationship Specialty Start Date End Date Misael Ferraro MD PCP - General Family Practice 09/29/12 documented as of this encounter
--- OUTSIDE RECORDS SUMMARY | 2025-10-15 13:06 | XMS_ITS | Encounter Summary ---
Author Organization [facility] Address 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
--- OUTSIDE RECORDS SUMMARY | 2025-10-15 13:06 | XMS_ITS | Encounter Summary ---
Author Organization [facility] Address [address] [place] [address] Care Team Providers Care Medication Technician Name Role Phone Misael Ferraro MD Primary Care Provider Unavailab le Encounter Details Date Type Department Care Team (Late st Contact Info) Description 07/29/2003 Outpatient [facility] Primary Care [address] [place] [phone] Natalie Matute MD NO ADDRESS ON FILE Social History Tobacco Use Types Packs/Day Years Used Date Smoking Tobacco: Never Assessed Comments Unknown Sex and Gender Information Value Date Recorded Sex Assigned at Not on file Legal Sex Female 2:55 AM DEVELOPMENTAL SERVICES WORKER Gender Identity Not on file Sexual Orientation Not on file documented as of this encounter Plan of Treatment Not on file documented as of this encounter Visit Diagnoses Not on filedocumented in this encounter Care Teams Medication Technician Relationship Specialty Start Date End Date Misael Ferraro MD PCP - General Family Practice 09/29/12 documented as of this encounter
--- OUTSIDE RECORDS SUMMARY | 2025-10-15 13:06 | XMS_ITS | Encounter Summary ---
Author Organization [facility] Address 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
--- OUTSIDE RECORDS SUMMARY | 2025-10-15 13:06 | XMS_ITS | Encounter Summary ---
Author Organization [facility] Address [address] [place] [address] Care Team Providers Care Gas Operations Analyst Name Role Phone Misael Ferraro MD Primary Care Provider Unavailab le Encounter Details Date Type Department Care Team (Late st Contact Info) Description 10/21/2004 Outpatient Historical [facility] DICE DEALER - [address] [place] [address] Booker Morrell MD [address] [place] [address] [place] [phone] Social History Tobacco Use Types Packs/Day Years Used Date Smoking Tobacco: Never Assessed Comments Unknown Sex and Gender Information Value Date Recorded Sex Assigned at Not on file Legal Sex Female 2:55 AM 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
== END 2025-10-15 10:52 | disposition home or self-care (01) ==
PROVIDERS: PCP Family Medicine; Visit Provider Family Medicine
DX: R10.32 Left lower quadrant pain (principal)
CPT/HCPCS: 74177; Q9967